=== PATIENT | male | born 1950 | race Caucasian/White ===

== ENCOUNTER 2018-01-03 18:57 | Observation (INO) | payer OTHER ==
[2018-01-03] MEDS ORDERED: ASPIRIN 81 MG CHEWABLE TABLETS PO ONE (19:11)
--- NOTE | 2018-01-03 19:11 | PDOC ---
Rapid Medical Evaluation Chief Complaint: Chest Pain Time Seen by Provider: 01/03/18 19:10 Medical Evaluation: Allergies Allergy/AdvReac Type Severity Reaction Status Date / Time No Known Allergies Allergy Verified 01/03/18 19:02 Vital Signs Temp Pulse Resp BP Pulse Ox 97.7 F 62 18 188/81 H 98 01/03/18 18:59 01/03/18 18:59 01/03/18 18:59 01/03/18 18:59 01/03/18 18:59 01/03/18 19:10 I have performed a brief in-person evaluation of this patient. The patient presents with a chief complaint of: left sided chest pain x1 week Pertinent physical exam findings: No TTP. Lungs CTAB. I have ordered the following: cardiac w/u The patient will proceed to the ED for further evaluation. Discharge Disposition - Diagnosis Chest pain - Referrals - Patient Instructions - Post Discharge Activity
[2018-01-03] MEDS ORDERED: ASPIRIN 81 MG CHEWABLE TABLETS ONE (19:31)
--- NOTE | 2018-01-03 19:44 | PDOC ---
History of Present Illness - General Chief Complaint: Chest Pain Stated Complaint: BLOOD PRESSURE PROBLEM Time Seen by Provider: 01/03/18 19:10 History Source: Patient - History of Present Illness Initial Comments: 01/03/18 19:47 67 year old male with epigastric pain, chest pain x 7 days with high blood pressure readings at home. patient reports slight dizziness and epigastric pain. when symptoms first started patient had 2 visits to OSH last week for chest pain. patient reports pain as a burning sensation took omeprazole at home. as per patient full GI workup in [place] as per patient results are negative, As per family patient had a diaphoretic episode x1 when the symptoms started, PMHX: Hypertension currently on betablocker and diovan HCTZ. 01/04/18 06:41 Presenting Symptoms: Abdominal Pain, Chest Pain, Dizziness Nitro Today/Relief: Yes: no nitro taken today Aspirin Received prior to arrival (Core Measure): Yes: no aspirin today Associated Symptoms: Yes: Abdominal pain Past History - Past Medical History Allergies/Adverse Reactions: Allergies Allergy/AdvReac Type Severity Reaction Status Date / Time No Known Allergies Allergy Verified 01/03/18 20:46 Home Medications: Ambulatory Orders Bisoprolol Fumarate [Zebeta (Nf) -] 10 mg PO DAILY 01/03/18 Valsartan/Hydrochlorothiazide [Valsartan-Hctz 320-12.5 mg Tab] 1 each PO DAILY 01/03/18 COPD: No HTN: Yes - Suicide/Smoking/Psychosocial Hx Smoking History: Never smoked Review of Systems - Review of Systems Able to Perform ROS?: Yes Is the patient limited Setswana proficient: No Constitutional: No: Symptoms Reported, See HPI, Chills, Diaphoresis, Fever, Loss of Appetite, Malaise, Night Sweats, Weakness, Weight Stable, Unintentional Wgt. Loss, Unexplained wgt Loss, Other Cardiac (ROS): Yes: Chest Pain, Lightheadedness. No: Symptoms Reported, See HPI , Edema, Irregular Heart Rate, Palpitations, Syncope, Chest Tightness, Other ABD/GI: Yes: Abdominal cramping. No: Symptoms Reported, See HPI, Abdominal Distended, Abd. Pain w/ defecation, Blood Streaked Bowels, Constipated, Diarrhea , Difficulty Swallowing, Nausea, Poor Appetite, Poor Fluid Intake, Rectal Bleeding, Vomiting, Indigestion, Tarry Stools, Other : No: Symptoms Reported, See HPI, Burning, Dysuria, Discharge, Frequency, Flank Pain, Hematuria, Incontinence, Pain, Urgency, Testicular Mass, Testicular Swelling, Lesions, Testicular Pain, Other Musculoskeletal: No: Symptoms Reported, See HPI, Back Pain, Gout, Joint Pain, Joint Swelling, Muscle Pain, Muscle Weakness, Neck Pain, Joint Stiffness, Other Integumentary: No: Symptoms Reported, See HPI, Bruising, Change in Color, Change in Hair/Nails, Dryness, Erythema, Flushing, Lesions, Lumps, Pallor, Pruritus, Rash, Sweating, Other *Physical Exam - Vital Signs Last Vital Signs Temp Pulse Resp BP Pulse Ox 98.5 F 52 L 16 109/66 99 01/04/18 01:00 01/04/18 06:25 01/04/18 06:25 01/04/18 06:25 01/04/18 06:25 - Physical Exam General Appearance: Yes: Appropriately Dressed Respiratory/Chest: positive: Lungs Clear, Normal Breath Sounds. negative: Chest Tender Cardiovascular: positive: Regular Rhythm, Regular Rate Gastrointestinal/Abdominal: positive: Normal Bowel Sounds, Tender (epigastric area tenderness), Soft Musculoskeletal: positive: Normal Inspection Extremity: positive: Normal Capillary Refill, Normal Inspection, Normal Range of Motion Integumentary: positive: Normal Color, Dry, Warm Neurologic: positive: Fully Oriented, Alert, Normal Mood/Affect Heart Score/ECG Review - History History: Slightly suspicious - Electrocardiogram EKG: Normal - Age Age: >/= 65 - Risk Factors Risk Factors Heart Score: Yes Hx Hypertension Based on the list above the patient has:: 1-2 risk factors - Troponin Troponin: </= normal limit - Score Heart Score - Total: 3 - ECG Intrepretation Rhythm: Regular Rhythm Comment:: 01/04/18 00:54 sinus rhythm with 1st degree AV block : 62 Bpm - P and TX Prolonged TX Interval: 1st Degree Block(>20mils) ED Treatment Course - LABORATORY CBC & Chemistry Diagram: 01/03/18 19:40 01/03/18 19:40 - ADDITIONAL ORDERS Additional order review: Laboratory Results 01/04/18 01/03/18 01/03/18 00:10 20:30 20:15 PT with INR INR Sodium Potassium Chloride Carbon Dioxide Anion Gap BUN Creatinine Creat Clearance w eGFR Random Glucose Calcium Magnesium Total Bilirubin AST ALT Alkaline Phosphatase Creatine Kinase 174 Creatine Kinase Index 1.8 CK-MB (CK-2) 3.2 Troponin I < 0.02 Total Protein Albumin Lipase Urine Color Straw Cancelled Urine Appearance Clear Cancelled Urine pH 7.0 Cancelled Ur Specific [place] 1.009 L Cancelled Urine Protein Negative Cancelled Urine Glucose (UA) Negative Cancelled Urine Ketones Negative Cancelled Urine Blood Negative Cancelled Urine Nitrite Negative Cancelled Urine Bilirubin Negative Cancelled Urine Urobilinogen Negative Cancelled Ur Leukocyte Esterase Negative Cancelled 01/03/18 01/03/18 19:40 19:40 PT with INR 11.70 INR 0.99 Sodium 139 Potassium 5.0 Chloride 100 Carbon Dioxide 28 Anion Gap 10 BUN 17 Creatinine 1.5 H Creat Clearance w eGFR 46.97 Random Glucose 99 Calcium 8.8 Magnesium 2.2 Total Bilirubin 0.3 AST 85 H ALT 147 H Alkaline Phosphatase 92 Creatine Kinase 193 Creatine Kinase Index 2.1 CK-MB (CK-2) 4.1 H Troponin I < 0.02 Total Protein 8.4 H Albumin 4.1 Lipase 308 Urine Color Urine Appearance Urine pH Ur Specific [place] Urine Protein Urine Glucose (UA) Urine Ketones Urine Blood Urine Nitrite Urine Bilirubin Urine Urobilinogen Ur Leukocyte Esterase 01/03/18 19:40 RBC 4.62 MCV 95.0 MCHC 35.6 RDW 13.3 MPV 9.0 Neutrophils % 36.0 L Lymphocytes % 47.3 H Monocytes % 9.2 Eosinophils % 7.0 H Basophils % 0.5 - RADIOLOGY Radiology Studies Ordered: Category Date Time Status ABDOMEN US -LIMITED [US] Stat Ultrasound 01/03/18 20:23 Completed - Medications Given in the ED: ED Medications Discontinued Medications Generic Name Dose Route Start Last Admin Trade Name Freq PRN Reason Stop Dose Admin Al Hydroxide/Mg Hydroxide 30 ml 01/03/18 19:45 01/03/18 20:10 Mylanta Oral Suspension - PO 01/03/18 19:46 30 ml ONCE ONE Administration Aspirin 162 mg 01/03/18 19:11 01/03/18 19:30 Asa - PO 01/03/18 19:12 162 mg ONCE ONE Administration Clonidine 0.2 mg 01/04/18 01:03 01/04/18 02:05 Catapres - PO 01/04/18 01:04 0.2 mg ONCE ONE Administration Hydralazine HCl 10 mg 01/04/18 03:41 01/04/18 04:58 Apresoline Injection - IVPUSH 01/04/18 03:42 Not Given ONCE ONE Metoprolol Tartrate 50 mg 01/03/18 23:30 01/04/18 00:01 Lopressor - PO 01/03/18 23:31 50 mg ONCE ONE Administration Morphine Sulfate 4 mg 01/03/18 21:38 01/03/18 21:25 Morphine Injection - IVPUSH 01/03/18 21:39 4 mg ONCE ONE Administration Medical Decision Making - Medical Decision Making 01/04/18 02:57 hypertension; chest pain P: labs EKG Chest xray 01/04/18 02:59 patient still hypertensive with chest pain. troponin x 2 negative. abdominal US negative. labs LFTS slightly elevated. will place for observation chest pain. patient signed out to Dr. Hutson/ Dr Mccracken 01/04/18 06:46 *DC/Admit/Observation/Transfer Diagnosis at time of Disposition: Epigastric abdominal pain, Hypertensive emergency Chest pain Qualifiers: Chest pain type: unspecified Qualified Code(s): R07.9 - Chest pain, unspecified Hypertension Qualifiers: Hypertension type: essential hypertension Qualified Code(s): I10 - Essential ( primary) hypertension - Discharge Dispostion Disposition: HOME Decision to Admit order: Yes - Referrals - Patient Instructions - Post Discharge Activity
[2018-01-03] MEDS ORDERED: MAG HYDROX/AL HYDROX/SIMETH 30 ML UNIT-DOSE CUP PO ONE (19:45)
[2018-01-03 19:47] LABS: BASO % 0.5 % (0-2.0); HEMATOCRIT 43.9 % (35.4-49); HEMOGLOBIN 15.6 GM/dL (11.7-16.9); LYMPH % 47.3 % (8-40); MCH 33.8 pg (25.7-33.7); MCHC 35.6 g/dl (32.0-35.9); MONO % 9.2 % (3.8-10.2); PLATELET COUNT 164 K/MM3 (134-434); RBC 4.62 M/mm3 (4.00-5.60); RDW 13.3 % (11.9-15.9); WHITE BLOOD COUNT 5.8 K/mm3 (4.0-10.0)
[2018-01-03] MEDS ORDERED: MAG HYDROX/AL HYDROX/SIMETH 30 ML UNIT-DOSE CUP ONE (19:48)
[2018-01-03 20:17] LABS: INR 0.99 (0.83-1.09); PROTHROMBIN TIME (PATIENT) 11.7 SEC (9.7-13.0)
[2018-01-03 20:32] LABS: ALBUMIN 4.1 g/dl (3.4-5.0); ALK PHOS 92 U/L (45-117); ANION GAP 10 MMOL/L (8-16); BILIRUBIN,TOTAL 0.3 mg/dL (0.2-1); BLOOD UREA NITROGEN 17 mg/dL (7-18); CALCIUM 8.8 mg/dL (8.5-10.1); CHLORIDE 100 mmol/L (98-107); CO2 28 mmol/L (21-32); CREATININE 1.5 mg/dL (0.55-1.3); GLUCOSE,RANDOM 99 mg/dL (74-106); MAGNESIUM 2.2 mg/dL (1.8-2.4); SGOT/AST 85 U/L (15-37); SGPT/ALT 147 U/L (13-61); SODIUM 139 mmol/L (136-145); TOT PROT 8.4 g/dl (6.4-8.2)
[2018-01-03 20:55] LABS: LIPASE 308 U/L (73-393)
[2018-01-03] MEDS ORDERED: morphine CARPU-JECT 4 MG/1 ML DISP.SYRIN IVPUSH ONE (21:38)
[2018-01-03] MEDS ORDERED: morphine SULFATE 4 MG/ML VIAL ONE (21:40)
[2018-01-03 22:13] LABS: URINE APPEARANCE CLEAR; URINE BILIRUBIN NEGATIVE (<2.0 mg/dL); URINE COLOR STRAW; URINE GLUCOSE (UA) NEGATIVE (NEGATIVE); URINE KETONE NEGATIVE (NEGATIVE); URINE LEUK ESTERASE NEGATIVE (NEGATIVE); URINE NITRITE NEGATIVE (NEGATIVE); URINE PROTEIN NEGATIVE (NEGATIVE); URINE UROBILINOGEN NEGATIVE mg/dL (0.2-1.0)
[2018-01-03] MEDS ORDERED: METOPROLOL TARTRATE 50 MG TABLET (FP) PO ONE (23:30)
[2018-01-04] MEDS ORDERED: METOPROLOL TARTRATE 50 MG TABLET (FP) ONE
[2018-01-04] MEDS ORDERED: cloNIDine HCL 0.1 MG TABLET PO ONE (01:03)
[2018-01-04] MEDS ORDERED: cloNIDine HCL 0.1 MG TABLET ONE (02:04)
--- NOTE | 2018-01-04 03:30 | PN ---
Teaching Attending Note Name of Resident: Adrián Hutson ATTENDING PHYSICIAN STATEMENT I saw and evaluated the patient. I reviewed the resident's note and discussed the case with the resident. I agree with the resident's findings and plan as documented. SUBJECTIVE: Patient is a 67 year old man with history of hypertension who presents with epigastric pain, chest pain x 7 days associated with high blood pressure readings at home. He reports slight dizziness and epigastric pain. when symptoms first started patient had 2 visits to OSH. Patient reports pain as a burning sensation and he took omeprazole at home. Says that full GI workup? in [place] was negative. OBJECTIVE: Alert Vital Signs Period Temp Pulse Resp BP Sys/Jennings Pulse Ox Last 24 Hr 97.7 F-98.9 F 56-65 16-20 151-215/81-96 98-100 HEENT: No Jaundice, eye redness or discharge, PERRLA, EOMI. Normocephalic, atraumatic. External ears are normal and hearing is grossly intact. No nasal discharge. Neck: Supple, nontender. No palpable adenopathy or thyromegaly. No JVD Chest: Good effort. Clear to auscultation and percussion. Heart: Regular. No S3, rub or murmur Abdomen: Not distended, soft, epigastric tenderness; no HSM. No rebound or guarding. Normoactive bowel sounds. Ext: Peripheral pulses intact. No leg edema. Skin: Warm and dry. No petechiae, rash or ecchymosis. Neuro: Alert. Oriented x3. CN 2-12 grossly intact. Sensation grossly intact in all four extremities and DTR are symmetric. Current Medications Generic Name Dose Route Start Last Admin Trade Name Freq PRN Reason Stop Dose Admin Amlodipine Besylate 5 mg 01/04/18 10:00 Norvasc - PO DAILY [facility] Heparin Sodium (Porcine) 5,000 unit 01/04/18 06:00 Heparin - SQ TID [facility] Hydrochlorothiazide 12.5 mg 01/04/18 10:00 Hctz - PO DAILY [facility] Losartan Potassium 100 mg 01/04/18 03:42 Cozaar - PO HS JEROD Home Medications Medication Instructions Recorded Bisoprolol Fumarate [Zebeta (Nf) -] 10 mg PO DAILY 01/03/18 Valsartan/Hydrochlorothiazide 1 each PO DAILY 01/03/18 [Valsartan-Hctz 320-12.5 mg Tab] Abnormal Lab Results 01/03/18 01/03/18 01/03/18 19:40 19:40 20:30 MCH 33.8 H Neutrophils % 36.0 L Lymphocytes % 47.3 H Eosinophils % 7.0 H Creatinine 1.5 H AST 85 H ALT 147 H CK-MB (CK-2) 4.1 H Total Protein 8.4 H Ur Specific [place] 1.009 L ASSESSMENT AND PLAN: 1. Chest pain and Hypertensive urgency - Chest pain is atypical and he has epigastric tenderness with elevated LFTs and dilated pancreatic duct. No ST-T wave changes of ischemia on EKG and initial troponin is negative. Got aspirin in the ER. BP remains high after 2 oral antihypertensive medications (Clonidine 0.2 mg and Lopressor 50 mg) in the ER. Will admit to telemetry to rule out ACS, get ECHO, fasting lipids and treat with IV hydralazine, HCTZ, Losartan, amlodipine and Protonix. Stress low salt diet and exercise and consult cardiology. Get hepatitis serology, trend LFTs and consult GI. 2. DVT prophylaxis - Heparin 5000u sq tid. 3. Advance directives - Full code
[2018-01-04] MEDS ORDERED: hydrALAZINE HCL 20 MG/ML VIAL IVPUSH ONE (03:41)
--- NOTE | 2018-01-04 04:01 | HP ---
CHIEF COMPLAINT: epigastric pain PCP: HISTORY OF PRESENT ILLNESS: Patient is a 67 y/o M w/ PMHx HTN from [facility] p/w burning left chest and epigastric pain x 7 days, more prominently epigastric. Went to [facility] last week and was discharged without definitive management. Has attempted self-treatment with omeprazole without relief. No other acute changes from USOH , ROS negative throughout. Reports full GI w/u in [place] ~1 month ago that was negative. Treated in ED with ASA, clonidine, Lopressor, morphine, Mylanta. Blood pressure persistently high 180s/90s. Elevated creatinine to 1.5 w/ no known baseline, elevated LFTs. CXR and Abd US negative. EKG has NSR w/ 1st degree AV block. Trop neg x 2, CKMB mildly elevated and downtrending. ER course was notable for: (1) HTN urgency/emergency (2) benign EKG, CXR, abd US (3) trop neg x 2 Recent Travel: [facility] PAST MEDICAL HISTORY: As per HPI PAST SURGICAL HISTORY: As per HPI Social History: Smoking: Alcohol: Drugs: Family History: Allergies No Known Allergies Allergy (Verified 01/03/18 20:46) HOME MEDICATIONS: Home Medications Medication Instructions Recorded Bisoprolol Fumarate [Zebeta (Nf) -] 10 mg PO DAILY 01/03/18 Valsartan/Hydrochlorothiazide 1 each PO DAILY 01/03/18 [Valsartan-Hctz 320-12.5 mg Tab] REVIEW OF SYSTEMS As per HPI PHYSICAL EXAMINATION Vital Signs - 24 hr 01/03/18 01/03/18 01/03/18 18:59 19:35 21:04 Temperature 97.7 F 98.0 F Pulse Rate 62 Pulse Rate [ 65 56 L Left Radial] Respiratory 18 16 17 Rate Blood Pressure 188/81 H Blood Pressure 151/86 171/94 H [Left Arm] Blood Pressure [Right Arm] O2 Sat by Pulse 98 100 100 Oximetry (%) 01/03/18 01/03/18 01/03/18 21:20 21:30 21:46 Temperature Pulse Rate Pulse Rate [ 58 L 65 64 Left Radial] Respiratory 16 17 20 Rate Blood Pressure Blood Pressure 193/88 H 215/94 H 196/96 H [Left Arm] Blood Pressure [Right Arm] O2 Sat by Pulse 100 100 100 Oximetry (%) 01/03/18 01/04/18 01/04/18 23:50 01:00 02:00 Temperature 98.9 F 98.5 F Pulse Rate Pulse Rate [ 61 61 56 L Left Radial] Respiratory 16 16 16 Rate Blood Pressure Blood Pressure [Left Arm] Blood Pressure 188/96 H 187/91 H 187/94 H [Right Arm] O2 Sat by Pulse 98 99 98 Oximetry (%) 01/04/18 02:52 Temperature Pulse Rate Pulse Rate [ 56 L Left Radial] Respiratory 16 Rate Blood Pressure Blood Pressure [Left Arm] Blood Pressure 181/93 H [Right Arm] O2 Sat by Pulse 99 Oximetry (%) GENERAL: A&Ox3, NAD HEAD: NC/AT EYES: PERRLA, EOMI EARS, NOSE, THROAT: Ears normal, nares patent, oropharynx clear without exudates. Moist mucous membranes. NECK: Normal range of motion, supple without lymphadenopathy, JVD, or masses. LUNGS: CTA b/l HEART: RRR no m/r/g CHEST: no TTP ABDOMEN: +bs, soft, non-distended, mild TTP in epigastrum UPPER EXTREMITIES: 2+ pulses, warm, well-perfused. No cyanosis. No clubbing. No peripheral edema. LOWER EXTREMITIES: 2+ pulses, warm, well-perfused. No calf tenderness. No peripheral edema. 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 Good eye contact. Appropriate mood and affect. SKIN: Warm, dry, normal turgor, no rashes or lesions noted, normal capillary refill. Laboratory Results - last 24 hr 01/03/18 01/03/18 01/03/18 19:40 19:40 19:40 WBC 5.8 RBC 4.62 Hgb 15.6 Hct 43.9 MCV 95.0 MCH 33.8 H MCHC 35.6 RDW 13.3 Plt Count 164 MPV 9.0 Absolute Neuts (auto) 2.1 Neutrophils % 36.0 L Lymphocytes % 47.3 H Monocytes % 9.2 Eosinophils % 7.0 H Basophils % 0.5 Nucleated RBC % 0 PT with INR 11.70 INR 0.99 Sodium 139 Potassium 5.0 Chloride 100 Carbon Dioxide 28 Anion Gap 10 BUN 17 Creatinine 1.5 H Creat Clearance w eGFR 46.97 Random Glucose 99 Calcium 8.8 Magnesium 2.2 Total Bilirubin 0.3 AST 85 H ALT 147 H Alkaline Phosphatase 92 Creatine Kinase 193 Creatine Kinase Index 2.1 CK-MB (CK-2) 4.1 H Troponin I < 0.02 Total Protein 8.4 H Albumin 4.1 Lipase 308 Urine Color Urine Appearance Urine pH Ur Specific [place] Urine Protein Urine Glucose (UA) Urine Ketones Urine Blood Urine Nitrite Urine Bilirubin Urine Urobilinogen Ur Leukocyte Esterase 01/03/18 01/03/18 01/04/18 20:15 20:30 00:10 WBC RBC Hgb Hct MCV MCH MCHC RDW Plt Count MPV Absolute Neuts (auto) Neutrophils % Lymphocytes % Monocytes % Eosinophils % Basophils % Nucleated RBC % PT with INR INR Sodium Potassium Chloride Carbon Dioxide Anion Gap BUN Creatinine Creat Clearance w eGFR Random Glucose Calcium Magnesium Total Bilirubin AST ALT Alkaline Phosphatase Creatine Kinase 174 Creatine Kinase Index 1.8 CK-MB (CK-2) 3.2 Troponin I < 0.02 Total Protein Albumin Lipase Urine Color Cancelled Straw Urine Appearance Cancelled Clear Urine pH Cancelled 7.0 Ur Specific [place] Cancelled 1.009 L Urine Protein Cancelled Negative Urine Glucose (UA) Cancelled Negative Urine Ketones Cancelled Negative Urine Blood Cancelled Negative Urine Nitrite Cancelled Negative Urine Bilirubin Cancelled Negative Urine Urobilinogen Cancelled Negative Ur Leukocyte Esterase Cancelled Negative ASSESSMENT/PLAN: 67 y/o M w/ PMHx HTN p/w 1 week h/o epigastric>chest pain, hypertensive urgency #HTN -elevated Cr may represent end organ damange (therefore HTN emergency rather than urgency) -home meds are DR versions of BB, ARB, thiazide -pushed 10mg hydralazine and gave 100mg Losartan PO stat -in AM, HCTZ 12.5 and Norvasc 5 -thereafter HCTZ/Norvasc in AM, Losartan in PM -avoid further AV maricruz blockade as borderline bradycardic (HR 56) -re-assess renal status after BP controlled #epigastric pain -3rd troponin in AM -repeat EKG in AM -GI consulted #LFT abnormality -abd US benign -GI consulted #FEN -no IVF -monitor and replete lytes -low Na diet #PPx -DVT: heparin subq -GI: not indicated #code -full #dispo -admit to tele-obs Visit type - Emergency Visit Emergency Visit: Yes Care time: The patient presented to the Emergency Department on the above date and was hospitalized for further evaluation of their emergent condition. - New Patient This patient is new to me today: Yes Date on this admission: 01/04/18 - Critical Care Critical Care patient: No
[2018-01-04] MEDS ORDERED: hydrALAZINE HCL 20 MG/ML VIAL ONE (04:41)
[2018-01-04] MEDS: LOSARTAN POTASSIUM 50 MG TABLET (FP) PO SCH ×2 (04:58→21:40)
[2018-01-04] MEDS ORDERED: HEPARIN NA (PORCINE) 5,000 UNITS/ML 1ML VIAL ONE (06:20)
[2018-01-04] MEDS: HEPARIN NA (PORCINE) 5,000 UNITS/ML 1ML VIAL SQ SCH ×3 (06:25→21:40)
[2018-01-04 06:55] LABS: HEMATOCRIT 42.2 % (35.4-49); HEMOGLOBIN 15.5 GM/dL (11.7-16.9); MCH 34.5 pg (25.7-33.7); MCHC 36.7 g/dl (32.0-35.9); MEAN CELL VOLUME 94.1 fl (80-96); MEAN PLT VOLUME 9.2 fl (7.5-11.1); PLATELET COUNT 147 K/MM3 (134-434); RBC 4.48 M/mm3 (4.00-5.60); RDW 13.5 % (11.9-15.9); WHITE BLOOD COUNT 6.4 K/mm3 (4.0-10.0)
[2018-01-04 07:32] LABS: ANION GAP 9 MMOL/L (8-16); BLOOD UREA NITROGEN 16 mg/dL (7-18); CALCIUM 8.6 mg/dL (8.5-10.1); CHLORIDE 101 mmol/L (98-107); CO2 28 mmol/L (21-32); CREATININE 1.3 mg/dL (0.55-1.3); GLUCOSE,RANDOM 109 mg/dL (74-106); MAGNESIUM 2.2 mg/dL (1.8-2.4); PHOSPHOROUS 2.7 mg/dL (2.5-4.9); POTASSIUM 4.1 mmol/L (3.5-5.1); SODIUM 138 mmol/L (136-145)
[2018-01-04 07:39] LABS: INR 1.04 (0.83-1.09); PROTHROMBIN TIME (PATIENT) 12.3 SEC (9.7-13.0)
[2018-01-04 07:42] LABS: ACTIVATED PTT 30.7 SECONDS (25.2-36.5)
--- NOTE | 2018-01-04 09:01 | PN ---
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 reprts having burning epigastric pain last evening , that was intermittent and lasted 10 min at a time. he reprots it is because of his high blood pressure. he denies eating dinner yesterday. he reports similar pain in [facility], but not clear on details. he denies any ABd pain, SOB , or N/V. he denies SOB. has no diarrhea. he reports taking his meds. Objective: Vital Signs: Last Vital Signs Temp Pulse Resp BP Pulse Ox 98.5 F 50 L 16 119/74 100 01/04/18 01:00 01/04/18 07:56 01/04/18 07:56 01/04/18 07:56 01/04/18 07:56 Laboratory Results - last 24 hr 01/03/18 01/03/18 01/03/18 19:40 19:40 19:40 WBC 5.8 RBC 4.62 Hgb 15.6 Hct 43.9 MCV 95.0 MCH 33.8 H MCHC 35.6 RDW 13.3 Plt Count 164 MPV 9.0 Absolute Neuts (auto) 2.1 Neutrophils % 36.0 L Lymphocytes % 47.3 H Monocytes % 9.2 Eosinophils % 7.0 H Basophils % 0.5 Nucleated RBC % 0 PT with INR 11.70 INR 0.99 PTT (Actin FS) Sodium 139 Potassium 5.0 Chloride 100 Carbon Dioxide 28 Anion Gap 10 BUN 17 Creatinine 1.5 H Creat Clearance w eGFR 46.97 Random Glucose 99 Calcium 8.8 Phosphorus Magnesium 2.2 Total Bilirubin 0.3 Direct Bilirubin AST 85 H ALT 147 H Alkaline Phosphatase 92 Creatine Kinase 193 Creatine Kinase Index 2.1 CK-MB (CK-2) 4.1 H Troponin I < 0.02 Total Protein 8.4 H Albumin 4.1 Lipase 308 Urine Color Urine Appearance Urine pH Ur Specific [place] Urine Protein Urine Glucose (UA) Urine Ketones Urine Blood Urine Nitrite Urine Bilirubin Urine Urobilinogen Ur Leukocyte Esterase 01/03/18 01/03/18 01/04/18 20:15 20:30 00:10 WBC RBC Hgb Hct MCV MCH MCHC RDW Plt Count MPV Absolute Neuts (auto) Neutrophils % Lymphocytes % Monocytes % Eosinophils % Basophils % Nucleated RBC % PT with INR INR PTT (Actin FS) Sodium Potassium Chloride Carbon Dioxide Anion Gap BUN Creatinine Creat Clearance w eGFR Random Glucose Calcium Phosphorus Magnesium Total Bilirubin Direct Bilirubin AST ALT Alkaline Phosphatase Creatine Kinase 174 Creatine Kinase Index 1.8 CK-MB (CK-2) 3.2 Troponin I < 0.02 Total Protein Albumin Lipase Urine Color Cancelled Straw Urine Appearance Cancelled Clear Urine pH Cancelled 7.0 Ur Specific [place] Cancelled 1.009 L Urine Protein Cancelled Negative Urine Glucose (UA) Cancelled Negative Urine Ketones Cancelled Negative Urine Blood Cancelled Negative Urine Nitrite Cancelled Negative Urine Bilirubin Cancelled Negative Urine Urobilinogen Cancelled Negative Ur Leukocyte Esterase Cancelled Negative 01/04/18 01/04/18 01/04/18 06:00 06:00 06:00 WBC 6.4 RBC 4.48 Hgb 15.5 Hct 42.2 MCV 94.1 MCH 34.5 H MCHC 36.7 H RDW 13.5 Plt Count 147 MPV 9.2 Absolute Neuts (auto) Neutrophils % Lymphocytes % Monocytes % Eosinophils % Basophils % Nucleated RBC % PT with INR 12.30 INR 1.04 PTT (Actin FS) 30.7 Sodium Potassium Chloride Carbon Dioxide Anion Gap BUN Creatinine Creat Clearance w eGFR Random Glucose Calcium Phosphorus Magnesium Total Bilirubin Direct Bilirubin AST ALT Alkaline Phosphatase Creatine Kinase Creatine Kinase Index CK-MB (CK-2) Troponin I < 0.02 Total Protein Albumin Lipase Urine Color Urine Appearance Urine pH Ur Specific [place] Urine Protein Urine Glucose (UA) Urine Ketones Urine Blood Urine Nitrite Urine Bilirubin Urine Urobilinogen Ur Leukocyte Esterase 01/04/18 01/04/18 06:00 06:00 WBC RBC Hgb Hct MCV MCH MCHC RDW Plt Count MPV Absolute Neuts (auto) Neutrophils % Lymphocytes % Monocytes % Eosinophils % Basophils % Nucleated RBC % PT with INR INR PTT (Actin FS) Sodium 138 Potassium 4.1 Chloride 101 Carbon Dioxide 28 Anion Gap 9 BUN 16 Creatinine 1.3 Creat Clearance w eGFR 55.40 Random Glucose 109 H Calcium 8.6 Phosphorus 2.7 Magnesium 2.2 Total Bilirubin Cancelled Direct Bilirubin Cancelled AST Cancelled ALT Cancelled Alkaline Phosphatase Cancelled Creatine Kinase Creatine Kinase Index CK-MB (CK-2) Troponin I Total Protein Cancelled Albumin Cancelled Lipase Urine Color Urine Appearance Urine pH Ur Specific [place] Urine Protein Urine Glucose (UA) Urine Ketones Urine Blood Urine Nitrite Urine Bilirubin Urine Urobilinogen Ur Leukocyte Esterase Physical Exam: NAD. MMM, no jaundice CV: RRR, no MRG Lungs: CTAB. Abd: soft, NT, ND , NL BS . Ext: no edema or erythema. Assessment/Plan: 67 y/o man with h/o HTN who presented with epigastric pain . he wwas diagnosed with HTN emergency 1- HTN emergency; BP improved. - cont current regimen. pt does not remember his home meds but his sister brought the list. -EKG with sinus rhythm, no ST or TW changes. 1st degree AV block. - echo 2- Epigastric discomfort, could be cardiac in setting of elevated BP, or from GI tract . No ischemic EKG changes - tele 3- Abd pain : lipase nL, no abd tenderness. etiology of LFTS abn needs to be determined. ? liver congestion . no stones or dilation in CBD or intrahepatic duct. liver looks nL. repeat LFTS pending unsure of significance of prominant pancreatic duct. will determine next step after reviewing LFTS from this am 4- CHEN : likely in setting of HTN emergency. resolved . monitor DVT px Visit type - Emergency Visit Emergency Visit: Yes ED Registration Date: 01/04/18 Care time: The patient presented to the Emergency Department on the above date and was hospitalized for further evaluation of their emergent condition. - New Patient This patient is new to me today: Yes Date on this admission: 01/04/18 - Critical Care Critical Care patient: No
[2018-01-04 09:24] LABS: ALBUMIN 3.6 g/dl (3.4-5.0); ALK PHOS 82 U/L (45-117); BILIRUBIN,DIRECT 0.2 mg/dL (0.0-0.2); BILIRUBIN,TOTAL 0.5 mg/dL (0.2-1); SGOT/AST 75 U/L (15-37); SGPT/ALT 135 U/L (13-61); TOT PROT 7.6 g/dl (6.4-8.2)
--- NOTE | 2018-01-04 13:23 | CON.GI ---
Consult Consult Specialty:: GI Referred by:: Hospitalist Service Reason for Consultation:: epigastric burning - History of Present Illness Chief Complaint: Epigastric burning: [id number] aided with interpretation as the patient is German speaking History of Present Illness: 67M admitted for evaluation of intermittent epigastric and chest pain. has been occurring over the last cocouple of weeks. Was seen at the [facility] ER. In ER at [facility] noted to have markedly elevated BP. Also noted to be bradycardic> He gets intermittent headaches and denies currently. He states that when his blood pressure is nigh he has had episodes of upper abdominal burning as well. He had an EGD/[place] in the [place] 4-6 months ago that showed gastritis, a hiatal hernia and colon polyps. He denies pain currently. Abd US shows prominent main pancreatic duduct and was otherwise normal. He denies a family history of colorectal cancr or other GI malignancy. 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year[place] 2017 History of Recent Travel: Yes (was in [place] 1 month prior) Home Medications - Allergies Allergies/Adverse Reactions: Allergies Allergy/AdvReac Type Severity Reaction Status Date / Time No Known Allergies Allergy Verified 01/03/18 20:46 - Home Medications Home Medications: Ambulatory Orders Bisoprolol Fumarate [Zebeta (Nf) -] 10 mg PO DAILY 01/03/18 Valsartan/Hydrochlorothiazide [Valsartan-Hctz 320-12.5 mg Tab] 1 each PO DAILY 01/03/18 Family Disease History - Family Disease History Family Disease History: Other: Father (: 96: natural causes), Mother (: 94: natural causes), Brother (2, 1 (accident)), Sister (2, 1 ( cerebral palsy)), Son (1, healthy), Daughter (2, healthy) Other Family History: No family history of colorectal cancer or other GI malignancy Review of Systems - Review of Systems Constitutional: denies: Fever, Unintentional Wgt. Loss Cardiovascular: reports: Chest Pain Respiratory: denies: SOB Neurological: reports: Headache Physical Exam-GI Vital Signs: Vital Signs Temperature 01/04/18 13:30 Pulse Rate 48 L 01/04/18 13:30 Respiratory Rate 16 01/04/18 13:30 Blood Pressure 140/81 01/04/18 13:30 O2 Sat by Pulse Oximetry (%) 100% RA 01/04/18 13:30 Constitutional: Yes: Calm Eyes: No: Sclera Icterus Cardiovascular: Yes: Bradycardia (regular rhythm) Respiratory: Yes: CTA Bilaterally Gastrointestinal Inspection: No: Distention, Scars ...Auscultate: Yes: Normoactive Bowel Sounds ...Palpate: No: Hepatomegaly, Splenomegaly, Tenderness ...Percussion: No: Tympanitic Edema: No (No LE edema) Neurological: Yes: Alert Labs: CBC, BMP 01/04/18 06:00 01/04/18 06:00 INR, PTT INR 1.04 (0.83-1.09) 01/04/18 06:00 Hepatic Panel Total Bilirubin 0.5 mg/dL (0.2-1) 01/04/18 06:00 Direct Bilirubin 0.2 mg/dL (0.0-0.2) 01/04/18 06:00 AST 75 U/L (15-37) H 01/04/18 06:00 ALT 135 U/L (13-61) H 01/04/18 06:00 Alkaline Phosphatase 82 U/L (45-117) 01/04/18 06:00 Albumin 3.6 g/dl (3.4-5.0) 01/04/18 06:00 Problem List - Problems (1) Epigastric abdominal pain Assessment/Plan: Intermittent and coincides with his elevated blood pressure. ? if dyspeptic anginal equivalent Toleraitng PO. Consider cardiology evaluation. ? need for imaging of thoracic and abdominal vasculature Do not think the finding of dilated main pancreatic duct is related to this complaint. Can obtain further imaging of abdomen with CT scan and can have MRI/ MRCP as outpatient Code(s): R10.13 - EPIGASTRIC PAIN
[2018-01-04 17:40] VITALS: BMI 28.6
[2018-01-04] MEDS: amLODIPine BESYLATE 5 MG TABLET (FP) PO SCH (18:16)
[2018-01-04] MEDS: HYDROCHLOROTHIAZIDE 12.5 MG CAPSULE (FP) PO SCH (18:16)
[2018-01-04] MEDS ORDERED: ACETAMINOPHEN 325 MG TABLET (FP) PO ONE (20:57)
[2018-01-05] MEDS: HEPARIN NA (PORCINE) 5,000 UNITS/ML 1ML VIAL SQ SCH ×3 (06:24→21:52)
--- NOTE | 2018-01-05 07:28 | PN ---
Teaching Attending Note Name of Resident: Neri Ryan ATTENDING PHYSICIAN STATEMENT I saw and evaluated the patient. I reviewed the resident's note and discussed the case with the resident. I agree with the resident's findings and plan as documented. SUBJECTIVE: Patient is comfortable with no acute distress. No nausea or vomiting, c/o having mild headache. OBJECTIVE: Vital Signs Temperature 97.8 F 01/05/18 06:00 Pulse Rate 52 L 01/05/18 06:00 Respiratory Rate 18 01/05/18 06:00 Blood Pressure 123/66 01/05/18 06:00 O2 Sat by Pulse Oximetry (%) 98 01/05/18 05:00 GENERAL: A&Ox3, NAD HEAD: NC/AT, EYES: PERRLA, EOMI EARS, NOSE, THROAT: Ears normal, oropharynx clear without exudates. MMM. NECK: Normal range of motion, supple without lymphadenopathy, JVD, or masses. LUNGS: CTA b/l, No W/R/R HEART: RRR, S1S2 positive, ABDOMEN: positive for BS, soft, ND, NT. EXTREMITIES: 2+ pulses, warm, well-perfused. No calf tenderness. No peripheral edema. 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 Good eye contact. Appropriate mood and affect. SKIN: Warm, dry, normal turgor, no rashes or lesions noted, normal capillary refill. CBCD WBC 6.4 K/mm3 (4.0-10.0) 01/04/18 06:00 RBC 4.48 M/mm3 (4.00-5.60) 01/04/18 06:00 Hgb 15.5 GM/dL (11.7-16.9) 01/04/18 06:00 Hct 42.2 % (35.4-49) 01/04/18 06:00 MCV 94.1 fl (80-96) 01/04/18 06:00 MCHC 36.7 g/dl (32.0-35.9) H 01/04/18 06:00 RDW 13.5 % (11.9-15.9) 01/04/18 06:00 Plt Count 147 K/MM3 (134-434) 01/04/18 06:00 MPV 9.2 fl (7.5-11.1) 01/04/18 06:00 CMP Sodium 138 mmol/L (136-145) 01/04/18 06:00 Potassium 4.1 mmol/L (3.5-5.1) 01/04/18 06:00 Chloride 101 mmol/L (98-107) 01/04/18 06:00 Carbon Dioxide 28 mmol/L (21-32) 01/04/18 06:00 Anion Gap 9 MMOL/L (8-16) 01/04/18 06:00 BUN 16 mg/dL (7-18) 01/04/18 06:00 Creatinine 1.3 mg/dL (0.55-1.3) 01/04/18 06:00 Creat Clearance w eGFR 55.40 (>60) 01/04/18 06:00 Random Glucose 109 mg/dL (74-106) H 01/04/18 06:00 Calcium 8.6 mg/dL (8.5-10.1) 01/04/18 06:00 Total Bilirubin 0.5 mg/dL (0.2-1) 01/04/18 06:00 AST 75 U/L (15-37) H 01/04/18 06:00 ALT 135 U/L (13-61) H 01/04/18 06:00 Alkaline Phosphatase 82 U/L (45-117) 01/04/18 06:00 Total Protein 7.6 g/dl (6.4-8.2) 01/04/18 06:00 Albumin 3.6 g/dl (3.4-5.0) 01/04/18 06:00 CARDIAC ENZYMES Creatine Kinase 174 IU/L (26-308) 01/04/18 00:10 Troponin I < 0.02 ng/ml (0.00-0.05) 01/04/18 06:00 Current Medications Generic Name Dose Route Start Last Admin Trade Name Freq PRN Reason Stop Dose Admin Amlodipine Besylate 5 mg 01/04/18 10:00 01/04/18 18:16 Norvasc - PO Not Given DAILY [facility] Heparin Sodium (Porcine) 5,000 unit 01/04/18 06:00 01/05/18 06:24 Heparin - SQ 5,000 unit TID [facility] Administration Hydrochlorothiazide 12.5 mg 01/04/18 10:00 01/04/18 18:16 Hctz - PO Not Given DAILY [facility] Losartan Potassium 100 mg 01/04/18 03:42 01/04/18 21:40 Cozaar - PO 100 mg HS JEROD Administration Home Medications Medication Instructions Recorded Bisoprolol Fumarate [Zebeta (Nf) -] 10 mg PO DAILY 01/03/18 Valsartan/Hydrochlorothiazide 1 each PO DAILY 01/03/18 [Valsartan-Hctz 320-12.5 mg Tab] EKG with sinus rhythm, no ST or TW changes. 1st degree AV block. ASSESSMENT AND PLAN: Patient is a 67 y/o man with hx of HTN who presented with epigastric pain .He was diagnosed with HTN emergency. # HTN emergency; BP improved. continue current regimen. Continue Losartan echo # Epigastric discomfort, could be cardiac in setting of elevated BP, or from GI tract . No ischemic EKG changes. # Abdominal pain :improved. lipase nL, no abdominal tenderness. with elevated LFTs , will monitor, etiology unclear. no stones or dilation in CBD or intrahepatic duct. liver looks nL, unsure of significance prominence of pancreatic duct. MRI of abdomen is pending. # CHEN : likely in setting of HTN emergency. resolved, monitor. DVT: Heparin
[2018-01-05 09:45] LABS: ALBUMIN 3.6 g/dl (3.4-5.0); ALK PHOS 84 U/L (45-117); ANION GAP 8 MMOL/L (8-16); BILIRUBIN,TOTAL 0.6 mg/dL (0.2-1); BLOOD UREA NITROGEN 19 mg/dL (7-18); CALCIUM 8.6 mg/dL (8.5-10.1); CHLORIDE 99 mmol/L (98-107); CO2 29 mmol/L (21-32); CREATININE 1.5 mg/dL (0.55-1.3); GLUCOSE,RANDOM 159 mg/dL (74-106); MAGNESIUM 2.1 mg/dL (1.8-2.4); POTASSIUM 3.8 mmol/L (3.5-5.1); SGOT/AST 73 U/L (15-37); SGPT/ALT 124 U/L (13-61); SODIUM 136 mmol/L (136-145); TOT PROT 7.7 g/dl (6.4-8.2)
--- NOTE | 2018-01-05 10:06 | EKG ---
Test Reason : Blood Pressure : / mmHG Vent. Rate : 048 BPM Atrial Rate : 048 BPM P-R Int : 316 ms QRS Dur : 080 ms QT Int : 468 ms P-R-T Axes : 050 -24 002 degrees QTc Int : 418 ms SINUS BRADYCARDIA WITH 1ST DEGREE A-V BLOCK Confirmed by AIXA PRAKASH MD ([id number]) on 01/05/2018 10:06:04 AM Referred By: Erik LAZCANO Confirmed By:AIXA PRAKASH MD
--- NOTE | 2018-01-05 10:13 | EKG ---
Test Reason : Blood Pressure : / mmHG Vent. Rate : 062 BPM Atrial Rate : 062 BPM P-R Int : 302 ms QRS Dur : 084 ms QT Int : 418 ms P-R-T Axes : 064 -22 030 degrees QTc Int : 424 ms SINUS RHYTHM WITH 1ST DEGREE A-V BLOCK SEPTAL INFARCT , AGE UNDETERMINED ABNORMAL ECG NO PREVIOUS ECGS AVAILABLE Confirmed by AIXA PRAKASH MD ([id number]) on 01/05/2018 10:12:41 AM Referred By: Confirmed By:AIXA PRAKASH MD
[2018-01-05] MEDS ORDERED: ACETAMINOPHEN 325 MG TABLET (FP) PO ONE (10:48)
[2018-01-05] MEDS: HYDROCHLOROTHIAZIDE 12.5 MG CAPSULE (FP) PO SCH (11:17)
[2018-01-05] MEDS: amLODIPine BESYLATE 5 MG TABLET (FP) PO SCH (11:17)
--- NOTE | 2018-01-05 13:29 | PN ---
Physical Exam: SUBJECTIVE: Patient seen and examined. No acute events overnight. Pt. endorses having headaches everyday including right now. Pt. denies fever, chills, nausea , vomiting, constipation or diarrhea. OBJECTIVE: Vital Signs Period Temp Pulse Resp BP Sys/Jennings Pulse Ox Last 24 Hr 97.8 F-98.2 F 50-60 14-18 122-141/66-78 98-100 GENERAL: The patient is awake, alert, and in no acute distress. HEAD: Normal with no signs of trauma. EYES: PERRL, sclera anicteric, conjunctiva clear. No ptosis. ENT: Ears normal, nares patent, oropharynx clear without exudates, moist mucous membranes. LUNGS: Breath sounds equal, clear to auscultation bilaterally, no wheezes, no crackles, no accessory muscle use. HEART: Regular rate and rhythm, S1, S2 without murmur, rub or gallop. ABDOMEN: Soft, nontender, nondistended, normoactive bowel sounds, no guarding, no rebound, tympanic to percussion. EXTREMITIES: symmetric 2+ dorsal pedal and radial pulses, no calf tenderness, warm, well-perfused, no edema. NEUROLOGICAL: Normal speech, gait not observed. PSYCH: Normal mood, normal affect. SKIN: Warm, dry, normal turgor, no rashes or lesions noted Laboratory Results - last 24 hr 01/05/18 08:35 Sodium 136 Potassium 3.8 Chloride 99 Carbon Dioxide 29 Anion Gap 8 BUN 19 H Creatinine 1.5 H Creat Clearance w eGFR 46.97 Random Glucose 159 H Calcium 8.6 Phosphorus 3.0 Magnesium 2.1 Total Bilirubin 0.6 AST 73 H ALT 124 H Alkaline Phosphatase 84 Total Protein 7.7 Albumin 3.6 Active Medications Current Medications Amlodipine Besylate (Norvasc -) 5 mg PO DAILY [facility] Last Admin: 01/05/18 11:17 Dose: 5 mg Heparin Sodium (Porcine) (Heparin -) 5,000 unit SQ TID [facility] Last Admin: 01/05/18 06:24 Dose: 5,000 unit Hydrochlorothiazide (Hctz -) 12.5 mg PO DAILY [facility] Last Admin: 01/05/18 11:17 Dose: 12.5 mg Losartan Potassium (Cozaar -) 100 mg PO HS [facility] Last Admin: 01/04/18 21:40 Dose: 100 mg Home Medications Medication Instructions Recorded Bisoprolol Fumarate [Zebeta (Nf) -] 10 mg PO DAILY 01/03/18 Valsartan/Hydrochlorothiazide 1 each PO DAILY 01/03/18 [Valsartan-Hctz 320-12.5 mg Tab] ASSESSMENT/PLAN: 67 y/o M w/ PMHx HTN p/w 1 week h/o epigastric>chest pain, hypertensive urgency -Epigastric Pain f/u Abdominal MRI/MRCP, Pt. has CHEN therefore not a good candidate for CT Abdomen w/ contrast. Abdominal US: showed prominent pancreatic duct, no acute pathology, no obstructing stones visualized. GI (Dr. Null) consult appreciated: 4-6 months ago had colonoscopy/EGD and was found to have hiatal hernia, gastritis and colonic polyps. -Hypertension-stable Hypertensive urgency vs. emergency on admission (180s/90s w/ Cr. 1.5) as Cr. was elevated. Baseline Cr. unknown. Pt. has chronic headache. given 10mg hydralazine and gave 100mg Losartan PO stat in ED C/w Losartan (PM), HCTZ and Norvasc(AM) avoid further AV maricruz blockade as borderline bradycardic Troponins Negative x 3 EKG showed sinus rhythm with 1st degree AV block, Rpt. EKG showed bradycardia ( 48) with 1st degree AV block. -Transaminitis- resolving LFTs trending down, likely 2/2 passed stone or sludge f/u Hepatitis panel as Pt. recently traveled(immigrated?) from [facility] [place] f/u MRI/MRCP Abdominal US noted as above -Headache likely tension headache given band distribution on head. will give ICE compress to head avoid Acetaminophen given transaminitis -F/E/N no IVF monitor and replete electrolytes NPO for MRI/ MRCP -PPx DVT: heparin subq GI: not indicated -Code Full Visit type - Emergency Visit Emergency Visit: Yes ED Registration Date: 01/04/18 Care time: The patient presented to the Emergency Department on the above date and was hospitalized for further evaluation of their emergent condition. - New Patient This patient is new to me today: Yes Date on this admission: 01/05/18 - Critical Care Critical Care patient: No - Discharge Referral Referred to [facility] Med [facility] No
--- NOTE | 2018-01-05 13:44 | PN ---
GI Progress Note Subjective: No focal GI complaints - Objective Vital Signs: Vital Signs Temperature 97.8 F 01/05/18 06:00 Pulse Rate 52 L 01/05/18 06:00 Respiratory Rate 18 01/05/18 06:00 Blood Pressure 123/66 01/05/18 06:00 O2 Sat by Pulse Oximetry (%) 98 01/05/18 05:00 Constitutional: Calm Eyes: No: Sclera Icterus Cardiovascular: Yes: Regular Rate and Rhythm Respiratory: Yes: CTA Bilaterally Gastrointestinal Inspection: No: Distention ...Auscultate: Yes: Normoactive Bowel Sounds ...Palpate: No: Hepatomegaly, Splenomegaly, Tenderness Edema: No (No LE edema) Neurological: Yes: Alert Labs: CBC, BMP 01/04/18 06:00 01/05/18 08:35 INR, PTT INR 1.04 (0.83-1.09) 01/04/18 06:00 Hepatic Panel Total Bilirubin 0.6 mg/dL (0.2-1) 01/05/18 08:35 Direct Bilirubin 0.2 mg/dL (0.0-0.2) 01/04/18 06:00 AST 73 U/L (15-37) H 01/05/18 08:35 ALT 124 U/L (13-61) H 01/05/18 08:35 Alkaline Phosphatase 84 U/L (45-117) 01/05/18 08:35 Albumin 3.6 g/dl (3.4-5.0) 01/05/18 08:35 Problem List - Problems (1) Epigastric abdominal pain Assessment/Plan: No pain BUN/Cr have risen. Agree with holding off on contrast CT scan at this time given renal insufficiency. Can obtain non contrast MRI of the abdomen with MRCP. Ordered hepatitis A/B/C serologies for eval of mild transaminitis Code(s): R10.13 - EPIGASTRIC PAIN
[2018-01-05] MEDS: LOSARTAN POTASSIUM 50 MG TABLET (FP) PO SCH (21:52)
[2018-01-06] MEDS: HEPARIN NA (PORCINE) 5,000 UNITS/ML 1ML VIAL SQ SCH ×2 (06:49→14:21)
[2018-01-06 07:47] LABS: HEMATOCRIT 47.4 % (35.4-49); HEMOGLOBIN 15.8 GM/dL (11.7-16.9); MCH 32.3 pg (25.7-33.7); MCHC 33.4 g/dl (32.0-35.9); MEAN CELL VOLUME 96.6 fl (80-96); MEAN PLT VOLUME 8.9 fl (7.5-11.1); PLATELET COUNT 164 K/MM3 (134-434); RBC 4.91 M/mm3 (4.00-5.60); RDW 13.2 % (11.9-15.9); WHITE BLOOD COUNT 7.2 K/mm3 (4.0-10.0)
--- NOTE | 2018-01-06 08:10 | PN ---
Progress Note, Physician Chief Complaint: doing ok , no new complaints - Current Medication List Current Medications: Active Medications Amlodipine Besylate (Norvasc -) 5 mg PO DAILY [facility] Last Admin: 01/05/18 11:17 Dose: 5 mg Heparin Sodium (Porcine) (Heparin -) 5,000 unit SQ TID [facility] Last Admin: 01/06/18 06:49 Dose: 5,000 unit Hydrochlorothiazide (Hctz -) 12.5 mg PO DAILY [facility] Last Admin: 01/05/18 11:17 Dose: 12.5 mg Losartan Potassium (Cozaar -) 100 mg PO HS [facility] Last Admin: 01/05/18 21:52 Dose: 100 mg - Objective Vital Signs: Vital Signs Temperature 98.0 F 01/06/18 05:00 Pulse Rate 61 01/06/18 05:00 Respiratory Rate 18 01/06/18 05:00 Blood Pressure 131/77 01/06/18 05:00 O2 Sat by Pulse Oximetry (%) 100 01/05/18 21:00 Constitutional: Yes: Well Nourished, No Distress Eyes: Yes: WNL HENT: Yes: WNL Neck: Yes: WNL Cardiovascular: Yes: WNL, Regular Rate and Rhythm Respiratory: Yes: WNL, Regular, CTA Bilaterally Gastrointestinal: Yes: WNL, Normal Bowel Sounds Extremities: Yes: WNL Edema: No Labs: CBC, BMP 01/06/18 07:08 INR, PTT INR 1.04 (0.83-1.09) 01/04/18 06:00 Problem List - Problems (1) Abdominal pain Assessment/Plan: MRCP reviewed - significant for steatosis otherwise no biliary ductal dilatation. hep serologies are pending, will f/u diet as tolerated HTN management he would benefit from an egd - which can be done outpt once the acute cardiopulmonary process has resolved. Code(s): R10.9 - UNSPECIFIED ABDOMINAL PAIN (2) Transaminitis Code(s): R74.0 - NONSPEC ELEV OF LEVELS OF TRANSAMNS & LACTIC ACID DEHYDRGNSE
[2018-01-06 08:36] LABS: ALBUMIN 3.8 g/dl (3.4-5.0); ALK PHOS 87 U/L (45-117); ANION GAP 12 MMOL/L (8-16); BILIRUBIN,TOTAL 0.6 mg/dL (0.2-1); BLOOD UREA NITROGEN 20 mg/dL (7-18); CALCIUM 9.1 mg/dL (8.5-10.1); CHLORIDE 98 mmol/L (98-107); CO2 26 mmol/L (21-32); CREATININE 1.4 mg/dL (0.55-1.3); GLUCOSE,RANDOM 90 mg/dL (74-106); PHOSPHOROUS 3.5 mg/dL (2.5-4.9); POTASSIUM 3.9 mmol/L (3.5-5.1); SGOT/AST 84 U/L (15-37); SGPT/ALT 129 U/L (13-61); SODIUM 137 mmol/L (136-145); TOT PROT 8.1 g/dl (6.4-8.2)
--- NOTE | 2018-01-06 08:56 | PN ---
Progress Note (short form) - Note Progress Note: Vital Signs Temperature 98.0 F 01/06/18 05:00 Pulse Rate 61 01/06/18 05:00 Respiratory Rate 18 01/06/18 05:00 Blood Pressure 131/77 01/06/18 05:00 O2 Sat by Pulse Oximetry (%) 100 01/05/18 21:00 GENERAL: A&Ox3, NAD HEAD: NC/AT, EYES: PERRLA, EOMI EARS, NOSE, THROAT: Ears normal, oropharynx clear without exudates. MMM. NECK: Normal range of motion, supple without lymphadenopathy, JVD, or masses. LUNGS: CTA b/l, No W/R/R HEART: RRR, S1S2 positive, ABDOMEN: positive for BS, soft, ND, NT. EXTREMITIES: 2+ pulses, warm, well-perfused. No calf tenderness. No peripheral edema. 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 Good eye contact. Appropriate mood and affect. SKIN: Warm, dry, normal turgor, no rashes or lesions noted, normal capillary refill. CBCD WBC 7.2 K/mm3 (4.0-10.0) 01/06/18 07:08 RBC 4.91 M/mm3 (4.00-5.60) 01/06/18 07:08 Hgb 15.8 GM/dL (11.7-16.9) 01/06/18 07:08 Hct 47.4 % (35.4-49) 01/06/18 07:08 MCV 96.6 fl (80-96) H 01/06/18 07:08 MCHC 33.4 g/dl (32.0-35.9) 01/06/18 07:08 RDW 13.2 % (11.9-15.9) 01/06/18 07:08 Plt Count 164 K/MM3 (134-434) 01/06/18 07:08 MPV 8.9 fl (7.5-11.1) 01/06/18 07:08 CMP Sodium 137 mmol/L (136-145) 01/06/18 07:08 Potassium 3.9 mmol/L (3.5-5.1) 01/06/18 07:08 Chloride 98 mmol/L (98-107) 01/06/18 07:08 Carbon Dioxide 26 mmol/L (21-32) 01/06/18 07:08 Anion Gap 12 MMOL/L (8-16) 01/06/18 07:08 BUN 20 mg/dL (7-18) H 01/06/18 07:08 Creatinine 1.4 mg/dL (0.55-1.3) H 01/06/18 07:08 Creat Clearance w eGFR 50.86 (>60) 01/06/18 07:08 Random Glucose 90 mg/dL (74-106) 01/06/18 07:08 Calcium 9.1 mg/dL (8.5-10.1) 01/06/18 07:08 Total Bilirubin 0.6 mg/dL (0.2-1) 01/06/18 07:08 AST 84 U/L (15-37) H 01/06/18 07:08 ALT 129 U/L (13-61) H 01/06/18 07:08 Alkaline Phosphatase 87 U/L (45-117) 01/06/18 07:08 Total Protein 8.1 g/dl (6.4-8.2) 01/06/18 07:08 Albumin 3.8 g/dl (3.4-5.0) 01/06/18 07:08 CARDIAC ENZYMES Creatine Kinase 174 IU/L (26-308) 01/04/18 00:10 Troponin I < 0.02 ng/ml (0.00-0.05) 01/04/18 06:00 Current Medications Generic Name Dose Route Start Last Admin Trade Name Louisa PRN Reason Stop Dose Admin Amlodipine Besylate 5 mg 01/04/18 10:00 01/05/18 11:17 Norvasc - PO 5 mg DAILY JEROD Administration Heparin Sodium (Porcine) 5,000 unit 01/04/18 06:00 01/06/18 06:49 Heparin - SQ 5,000 unit TID JERDO Administration Hydrochlorothiazide 12.5 mg 01/04/18 10:00 01/05/18 11:17 Hctz - PO 12.5 mg DAILY JEROD Administration Losartan Potassium 100 mg 01/04/18 03:42 01/05/18 21:52 Cozaar - PO 100 mg HS JEROD Administration Home Medications Medication Instructions Recorded Bisoprolol Fumarate [Zebeta (Nf) -] 10 mg PO DAILY 01/03/18 Valsartan/Hydrochlorothiazide 1 each PO DAILY 01/03/18 [Valsartan-Hctz 320-12.5 mg Tab] EKG with sinus rhythm, no ST or TW changes. 1st degree AV block. ASSESSMENT AND PLAN: Patient is a 67 y/o man with hx of HTN who presented with epigastric pain .He was diagnosed with HTN emergency. # HTN emergency; BP improved. continue current regimen. Continue Losartan echo # Epigastric discomfort, could be cardiac in setting of elevated BP, or from GI tract . No ischemic EKG changes. # Abdominal pain :improved. lipase nL, no abdominal tenderness. with elevated LFTs , will monitor, etiology unclear. no stones or dilation in CBD or intrahepatic duct. liver looks nL, unsure of significance prominence of pancreatic duct. MRI of abdomen is pending. # CHEN : likely in setting of HTN emergency. resolved, monitor. DVT: Heparin Elevtaed LFts ,will hydrate , Hep panel is pending CT of the head pending dclosartan and Hctz due to elevated creatinine
[2018-01-06] MEDS: amLODIPine BESYLATE 5 MG TABLET (FP) PO SCH (10:24)
[2018-01-06] MEDS: HYDROCHLOROTHIAZIDE 12.5 MG CAPSULE (FP) PO SCH (10:24)
[2018-01-06] MEDS ORDERED: CELECOXIB 200 MG CAPSULE PO ONE (12:50)
[2018-01-06] MEDS ORDERED: SODIUM CHLORIDE 1,000 ML IV SCH (13:00)
[2018-01-06] MEDS ORDERED: SODIUM CHLORIDE 0.45% 1,000 ML IV SCH (13:15)
--- NOTE | 2018-01-06 17:53 | DS ---
Physical Exam: SUBJECTIVE: Patient seen and examined Patient is feeling better , no further headache. No further abdominal pain. OBJECTIVE: Vital Signs Temperature 98.1 F 01/06/18 14:00 Pulse Rate 69 01/06/18 14:00 Respiratory Rate 18 01/06/18 09:00 Blood Pressure 125/73 01/06/18 14:00 O2 Sat by Pulse Oximetry (%) 100 01/06/18 09:00 Initial Vital Signs Temp Pulse Resp BP Pulse Ox 97.7 F 62 18 188/81 H 98 01/03/18 18:59 01/03/18 18:59 01/03/18 18:59 01/03/18 18:59 01/03/18 18:59 PHYSICAL EXAM GENERAL: The patient is awake, alert, and fully oriented, in no acute distress. HEAD: Normal with no signs of trauma. EYES: PERRL, extraocular movements intact, sclera anicteric, conjunctiva clear. ENT: Ears normal, oropharynx clear without exudates, moist mucous membranes. NECK: Trachea midline, full range of motion, supple. LUNGS: Breath sounds equal, clear to auscultation bilaterally, no wheezes, no crackles, no accessory muscle use. HEART: Regular rate and rhythm, S1, S2 without murmur, rub or gallop. ABDOMEN: Soft, nontender, nondistended, normoactive bowel sounds, no guarding, no rebound, no hepatosplenomegaly, no masses. EXTREMITIES: 2+ pulses, warm, well-perfused, no edema. NEUROLOGICAL: Cranial nerves II through XII grossly intact. Normal speech, gait not observed. PSYCH: Normal mood, normal affect. SKIN: Warm, dry, normal turgor, no rashes or lesions noted. LABS Laboratory Results - last 24 hr 01/06/18 01/06/18 07:08 07:08 WBC 7.2 RBC 4.91 Hgb 15.8 Hct 47.4 MCV 96.6 H MCH 32.3 MCHC 33.4 RDW 13.2 Plt Count 164 MPV 8.9 Sodium 137 Potassium 3.9 Chloride 98 Carbon Dioxide 26 Anion Gap 12 BUN 20 H Creatinine 1.4 H Creat Clearance w eGFR 50.86 Random Glucose 90 Calcium 9.1 Phosphorus 3.5 Magnesium 2.0 Total Bilirubin 0.6 AST 84 H ALT 129 H Alkaline Phosphatase 87 Total Protein 8.1 Albumin 3.8 Current Medications Generic Name Dose Route Start Last Admin Trade Name Louisa PRN Reason Stop Dose Admin Amlodipine Besylate 5 mg 01/04/18 10:00 01/06/18 10:24 Norvasc - PO 5 mg DAILY JEROD Administration Heparin Sodium (Porcine) 5,000 unit 01/04/18 06:00 01/06/18 14:21 Heparin - SQ 5,000 unit TID JEROD Administration Sodium Chloride 1,000 mls @ 100 mls/hr 01/06/18 13:15 01/06/18 13:27 1/2 Normal Saline IV 01/06/18 23:14 100 mls/hr ASDIR JEROD Administration Home Medications Medication Instructions Recorded Bisoprolol Fumarate [Zebeta (Nf) -] 10 mg PO DAILY 01/03/18 Valsartan/Hydrochlorothiazide 1 each PO DAILY 01/03/18 [Valsartan-Hctz 320-12.5 mg Tab] Amlodipine Besylate [Norvasc -] 10 mg PO DAILY #30 tablet 01/06/18 CT of the head is: no bleed MRCP: no acute pathology EKG with sinus rhythm, no ST or TW changes. 1st degree AV block. HOSPITAL COURSE: Date of Admission:01/04/18 Date of Discharge: 01/06/18 Patient is a 67 y/o man with hx of HTN who presented with epigastric pain and was found to have HTN emergency. # HTN emergency; BP improved. will continue with Norvasc 5mg po bid , will discontinue Losartan and Hctz due to kidney function. # Epigastric discomfort improved , no further pain. No ischemic EKG changes. # Abdominal pain :improved. lipase nL, no abdominal tenderness. with mild elevation of LFTs suggested not to take excedrin for pain. # CHEN : likely in setting of HTN emergency. discontinue LOsartan and Hctz Elevtaed LFts ,will hydrate s/p IVF . Hep panel is still pending( follow with GI in the clinic to check the results) Dc losartan and Hctz due to elevated creatinine discharge time 35min. Discussed with the daughter who is at bedside and also Nedra The nurse translated. Minutes to complete discharge: 35 Discharge Summary Reason For Visit: EPIGASTRIC PAIN,CHEST PAIN,HYPERTENSION Current Active Problems Abdominal pain (Acute) Chest pain (Acute) Epigastric abdominal pain (Acute) Hypertension (Acute) Hypertensive emergency (Acute) Transaminitis (Acute) Condition: Stable - Instructions Diet, Activity, Other Instructions: Please follow up with your primary care doctor for a follow to adjust your blood pressure medications. You may follow up in the [facility] Additional Instructions: * Please call your personal physician to report your Emergency Department visit and to report your progress, if any. * If there is no improvement in symptoms in 2 days call your physician. * Return to the Emergency Department for any worsening symptoms. Referrals: [facility] [Outside] - 24 hours Ruddy Lynne MD [Staff Physician] - Call tomorrow Sixto Mckeon MD [Staff Physician] - Call tomorrow - Home Medications Comprehensive Discharge Medication List: Ambulatory Orders Bisoprolol Fumarate [Zebeta (Nf) -] 10 mg PO DAILY 01/03/18 Valsartan/Hydrochlorothiazide [Valsartan-Hctz 320-12.5 mg Tab] 1 each PO DAILY 01/03/18 Amlodipine Besylate [Norvasc -] 10 mg PO DAILY #30 tablet 01/06/18 This patient is new to me today: No Emergency Visit: Yes ED Registration Date: 01/04/18 Care time: The patient presented to the Emergency Department on the above date and was hospitalized for further evaluation of their emergent condition. Critical Care patient: No - Discharge Referral Referred to [facility] Med P.C.: No
[2018-01-06 18:01] VITALS: BP 126/61; PULSE 62; TEMP 97.4
[2018-01-08 16:16] LABS: HBSAG SCREEN Negative (Negative); HEP A AB, IGM Negative (Negative); HEP B CORE AB, TOT Positive (Negative)
== END 2018-01-06 18:53 | disposition home or self-care (01) ==
LOC: JER 18:57 → JERBED 01-04 03:28 → J4W 01-04 17:03
PROVIDERS: ADMIT Internal Medicine; ATTEND Internal Medicine
PROC: 3E033NZ Introduction of Analgesics, Hypnotics, Sedatives into Peripheral Vein, Percutaneous Approach (ICD-10-PCS; principal; 2018-01-04)
PROC: 3E0337Z Introduction of Electrolytic and Water Balance Substance into Peripheral Vein, Percutaneous Approach (ICD-10-PCS; 2018-01-04)
PROC: 3E013GC Introduction of Other Therapeutic Substance into Subcutaneous Tissue, Percutaneous Approach (ICD-10-PCS; 2018-01-04)
DX: I16.1 Hypertensive emergency (principal); R07.9 Chest pain, unspecified; I10 Essential (primary) hypertension; R10.13 Epigastric pain; R94.5 Abnormal results of liver function studies; N17.9 Acute kidney failure, unspecified; R10.9 Unspecified abdominal pain; R51 Headache; R74.0 Nonspecific elevation of levels of transaminase and lactic acid dehydrogenase [LDH]
CPT/HCPCS: 36415; 70450-TC; 71045-TC-FY; 71046-TC-FY; 74181-TC; 76705-TC; 80048; 80053; 80076; 81003; 82550; 82553; 83690; 83735; 84100; 84484; 85025; 85027; 85610; 85730; 86704; 86706; 86708; 86803; 87340; 93005; 93010; 96372; 96374; 99285-25; G0378; J0735; J1644

== ENCOUNTER 2018-01-10 01:09 | Observation (INO) | payer OTHER ==
[2018-01-10 01:32] VITALS: BMI 29.2
[2018-01-10] MEDS ORDERED: ASPIRIN 81 MG CHEWABLE TABLETS PO ONE (02:24)
--- NOTE | 2018-01-10 02:24 | PDOC ---
History of Present Illness - General History Source: Patient Exam Limitations: No Limitations - History of Present Illness Initial Comments: 01/10/18 02:27 The patient is a 67 year old male with a past medical history of HTN, recent admission for CHEN and HTN emergency; was discharged two days ago presenting to the ER for chest pain and palpitations today. Patient describes the chest pain as sharp and nonradiating. Of note, patient recently had his HTN meds changed to 5mg of amlodipine BID. Patient denies any history of DVT or PE. Patient denies any family history for cardiac issues. Patient denies any recent travel. Patient denies any leg swelling. Allergies: NKDA Surgical history: None reported Social history: No reported alcohol, drug or cigarette use. <Shruthi Troncoso - Last Filed: 01/10/18 02:27> - General History Source: Patient Exam Limitations: No Limitations <Lisseth Sandhu - Last Filed: 01/10/18 06:09> - General Chief Complaint: Chest Pain Stated Complaint: CHEST PAIN Time Seen by Provider: 01/10/18 01:19 Past History <Shruthi Troncoso - Last Filed: 01/10/18 02:27> - Past Medical History Anemia: No Asthma: No Cancer: No Cardiac Disorders: No CVA: No COPD: No CHF: No Dementia: No Diabetes: No GI Disorders: Yes (Colonoscopy 6 mos ago) Disorders: No HTN: Yes Hypercholesterolemia: No Liver Disease: No Seizures: No Thyroid Disease: No - Surgical History Abdominal Surgery: No Appendectomy: No Cardiac Surgery: No Cholecystectomy: No Lung Surgery: No Neurologic Surgery: No Orthopedic Surgery: No - Suicide/Smoking/Psychosocial Hx Smoking History: Never smoked Have you smoked in the past 12 months: No Information on smoking cessation initiated: No Hx Alcohol Use: No Drug/Substance Use Hx: No Substance Use Type: None Hx Substance Use Treatment: Yes <Lisseth Sandhu - Last Filed: 01/10/18 06:09> - Past Medical History Allergies/Adverse Reactions: Allergies Allergy/AdvReac Type Severity Reaction Status Date / Time No Known Allergies Allergy Verified 01/10/18 01:32 Home Medications: Ambulatory Orders Bisoprolol Fumarate [Zebeta (Nf) -] 10 mg PO DAILY 01/03/18 Amlodipine Besylate [Norvasc -] 5 mg PO BID #60 tablet 01/06/18 Review of Systems - Review of Systems Able to Perform ROS?: Yes Comments:: 01/10/18 02:33 ADULT ROS GENERAL/CONSTITUTIONAL: No fever or chills. No weakness. HEAD, EYES, EARS, NOSE AND THROAT: No change in vision. No ear pain or discharge. No sore throat. CARDIOVASCULAR: (+) chest pain. No shortness of breath. RESPIRATORY: No cough, wheezing, or hemoptysis. GASTROINTESTINAL: No nausea, vomiting, diarrhea or constipation. GENITOURINARY: No dysuria, frequency, or change in urination. MUSCULOSKELETAL: No joint or muscle swelling or pain. No neck or back pain. SKIN: No rash NEUROLOGIC: No headache, vertigo, loss of consciousness, or change in strength/ sensation. ENDOCRINE: No increased thirst. No abnormal weight change. HEMATOLOGIC/LYMPHATIC: No anemia, easy bleeding, or history of blood clots. ALLERGIC/IMMUNOLOGIC: No hives or skin allergy. <Shruthi Troncoso - Last Filed: 01/10/18 02:27> *Physical Exam - Vital Signs Last Vital Signs Temp Pulse Resp BP Pulse Ox 97.6 F 103 H 22 H 161/99 100 01/10/18 01:09 01/10/18 01:09 01/10/18 01:09 01/10/18 01:09 01/10/18 01:09 - Physical Exam Comments: 01/10/18 02:33 ADULT EXAM GENERAL: Awake, alert, and fully oriented, in no acute distress HEAD: No signs of trauma EYES: PERRLA, EOMI, sclera anicteric, conjunctiva clear ENT: Auricles normal inspection, hearing grossly normal, nares patent. Moist mucosa NECK: Normal ROM, supple, no lymphadenopathy, JVD, or masses LUNGS: Breath sounds equal, clear to auscultation bilaterally. No wheezes, and no crackles HEART: Regular rate and rhythm, normal S1 and S2, no murmurs, rubs or gallops ABDOMEN: Soft, nontender, normoactive bowel sounds. No guarding, no rebound. No masses EXTREMITIES: Normal range of motion, no edema. No erythema or tenderness. DP/PT pulses 2+ and symmetric. Warm and well perfused. NEUROLOGICAL: Moves all extremities. Normal speech, normal gait SKIN: Warm, Dry, normal turgor, no rashes or lesions noted. <Shruthi Troncoso - Last Filed: 01/10/18 02:27> - Vital Signs Last Vital Signs Temp Pulse Resp BP Pulse Ox 97.6 F 103 H 22 H 161/99 100 01/10/18 01:09 01/10/18 01:09 01/10/18 01:09 01/10/18 01:09 01/10/18 01:09 <Lisseth Sandhu - Last Filed: 01/10/18 06:09> Moderate Sedation - Procedure Monitoring Vital Signs: Procedure Monitoring Vital Signs Temperature 97.6 F 01/10/18 01:09 Pulse Rate 103 H 01/10/18 01:09 Respiratory Rate 22 H 01/10/18 01:09 Blood Pressure 161/99 01/10/18 01:09 O2 Sat by Pulse Oximetry (%) 100 01/10/18 01:09 <Shruthi Troncoso - Last Filed: 01/10/18 02:27> - Procedure Monitoring Vital Signs: Procedure Monitoring Vital Signs Temperature 97.6 F 01/10/18 01:09 Pulse Rate 103 H 01/10/18 01:09 Respiratory Rate 22 H 01/10/18 01:09 Blood Pressure 161/99 01/10/18 01:09 O2 Sat by Pulse Oximetry (%) 100 01/10/18 01:09 <Lisseth Sandhu - Last Filed: 01/10/18 06:09> Procedures - Bedside Ultrasound Bedside Ultrasound: Cardiac Other: see mdm <Lisseth Sandhu - Last Filed: 01/10/18 06:09> ED Treatment Course - LABORATORY CBC & Chemistry Diagram: 01/10/18 02:05 01/10/18 02:05 <Shruthi Troncoso - Last Filed: 01/10/18 02:27> - LABORATORY CBC & Chemistry Diagram: 01/10/18 02:05 01/10/18 02:05 - RADIOLOGY Radiology Studies Ordered: Category Date Time Status CHEST PA & LAT [RAD] Stat Radiology 01/10/18 01:56 Ordered <Lisseth Sandhu - Last Filed: 01/10/18 06:09> Medical Decision Making - Medical Decision Making <Shruthi Troncoso - Last Filed: 01/10/18 02:27> - Medical Decision Making 01/10/18 02:21 67 yo male with h/o HTN, recently admitted for chen htn emergency dc 2 days ago, here today c/o chest pain and palpitations. no h/o pe or dvt. chest pain no radiation. no recent travel. no leg swelling. during admission. pt found to have chen, likely secondary to bp meds, which were switched to amlodipine. had cxr ecg and serial troponins. denies family h/o cad. pt does not smoke. on exam pt awake alert lungs clear heart rrr no mrg abd soft nt nd. no pulsatile mass. ext wwp no edema no calf tenderness. pulses symmetric. differential angina, dissection , pe. plan ct angio if cr permitting. recent chen. labs cxr aspirin, bp control as neee. will require admission to r/o angina. will add d dimer. . tte no signs of rv strain. good contractilty. pt heart rate improved now in 70's 01/10/18 06:08 focused ED TTE performed, indication chest pain four views of heart obtained. parasternal long and short, subxiphoid, apical no pericardial effusion. good contractility. no rv dilation or strain. impression: normal tTE. 01/10/18 06:09 <Lisseth Sandhu - Last Filed: 01/10/18 06:09> *DC/Admit/Observation/Transfer <Shruthi Troncoso - Last Filed: 01/10/18 02:27> - Discharge Dispostion Decision to Admit order: Yes <Lisseth Sandhu - Last Filed: 01/10/18 06:09> Diagnosis at time of Disposition: Chest pain - Discharge Dispostion Condition at time of disposition: Fair
[2018-01-10 02:29] LABS: BASO % 0.6 % (0-2.0); EOS % 7.3 % (0-4.5); HEMATOCRIT 44.8 % (35.4-49); HEMOGLOBIN 16.4 GM/dL (11.7-16.9); LYMPH % 50.4 % (8-40); MCH 34.2 pg (25.7-33.7); MCHC 36.5 g/dl (32.0-35.9); MEAN CELL VOLUME 93.5 fl (80-96); MEAN PLT VOLUME 9.2 fl (7.5-11.1); MONO % 8.7 % (3.8-10.2); PLATELET COUNT 166 K/MM3 (134-434); RBC 4.79 M/mm3 (4.00-5.60); RDW 13.3 % (11.9-15.9); WHITE BLOOD COUNT 7.7 K/mm3 (4.0-10.0)
[2018-01-10] MEDS ORDERED: ASPIRIN 81 MG CHEWABLE TABLETS ONE (02:32)
[2018-01-10 02:50] LABS: ALBUMIN 4.1 g/dl (3.4-5.0); ALK PHOS 87 U/L (45-117); ANION GAP 7 MMOL/L (8-16); BILIRUBIN,TOTAL 0.4 mg/dL (0.2-1); BLOOD UREA NITROGEN 16 mg/dL (7-18); CALCIUM 9.1 mg/dL (8.5-10.1); CHLORIDE 102 mmol/L (98-107); CO2 27 mmol/L (21-32); CREATININE 1.4 mg/dL (0.55-1.3); GLUCOSE,RANDOM 109 mg/dL (74-106); POTASSIUM 4.2 mmol/L (3.5-5.1); SGOT/AST 87 U/L (15-37); SGPT/ALT 146 U/L (13-61); SODIUM 136 mmol/L (136-145); TOT PROT 8.6 g/dl (6.4-8.2)
[2018-01-10] MEDS ORDERED: SODIUM CHLORIDE 0.9% 1000 ML INFUS.BAG IV ONE (05:31)
--- NOTE | 2018-01-10 06:01 | HP ---
CHIEF COMPLAINT: chest pain PCP: HISTORY OF PRESENT ILLNESS: 67 yo male with PMH HTN and recent admission for HTN emergency with CHEN presented to ED with complaint of chest pain. He denies any radiation of the pain and describes it as a sharp pain that began earlier today. Of note he had some palpitations earlier which have now resolved. He denies any SOB, weakness, lightheadedness, n/v/d. ER course was notable for: (1) Trop, negative, no concerning EKG changes (2) ASA 325, 1L NS (3) Tachycardia Recent Travel: none PAST MEDICAL HISTORY: HTN PAST SURGICAL HISTORY: denies Social History: Smoking: Denies Alcohol: denies Drugs: denies Family History: Allergies No Known Allergies Allergy (Verified 01/10/18 01:32) HOME MEDICATIONS: Home Medications Medication Instructions Recorded Bisoprolol Fumarate [Zebeta (Nf) -] 10 mg PO DAILY 01/03/18 Amlodipine Besylate [Norvasc -] 5 mg PO BID #60 tablet 01/06/18 REVIEW OF SYSTEMS CONSTITUTIONAL: Absent: fever, chills, diaphoresis, generalized weakness, malaise, loss of appetite, weight change HEENT: Absent: rhinorrhea, nasal congestion, throat pain, throat swelling, difficulty swallowing, mouth swelling, ear pain, eye pain, visual changes CARDIOVASCULAR: chest pain, palpitations Absent: syncope,, irregular heart rate, lightheadedness, peripheral edema RESPIRATORY: Absent: cough, shortness of breath, dyspnea with exertion, orthopnea, wheezing, stridor, hemoptysis GASTROINTESTINAL: Absent: abdominal pain, abdominal distension, nausea, vomiting, diarrhea, constipation, melena, hematochezia GENITOURINARY: Absent: dysuria, frequency, urgency, hesitancy, hematuria, flank pain, genital pain MUSCULOSKELETAL: Absent: myalgia, arthralgia, joint swelling, back pain, neck pain SKIN: Absent: rash, itching, pallor HEMATOLOGIC/IMMUNOLOGIC: Absent: easy bleeding, easy bruising, lymphadenopathy, frequent infections ENDOCRINE: Absent: unexplained weight gain, unexplained weight loss, heat intolerance, cold intolerance NEUROLOGIC: Absent: headache, focal weakness or paresthesias, dizziness, unsteady gait, seizure, mental status changes, bladder or bowel incontinence PSYCHIATRIC: Absent: anxiety, depression, suicidal or homicidal ideation, hallucinations. PHYSICAL EXAMINATION Vital Signs - 24 hr 01/10/18 01:09 Temperature 97.6 F Pulse Rate 103 H Respiratory 22 H Rate Blood Pressure 161/99 O2 Sat by Pulse 100 Oximetry (%) GENERAL: Awake, alert, and fully oriented, in no acute distress. HEAD: Normal with no signs of trauma. EYES: Pupils equal, round and reactive to light, extraocular movements intact, sclera anicteric, conjunctiva clear EARS, NOSE, THROAT: oropharynx clear without exudates. Moist mucous membranes. LUNGS: Breath sounds equal, clear to auscultation bilaterally. No wheezes, and no crackles. HEART: Regular rate and rhythm, normal S1 and S2 without murmur, rub or gallop. ABDOMEN: Soft, nontender, not distended, normoactive bowel sounds MUSCULOSKELETAL: pain is not reproducible EXTREMITIES: 2+ pulses, warm, well-perfused. No calf tenderness. No peripheral edema. NEUROLOGICAL: Cranial nerves II-XII intact. Normal speech. Laboratory Results - last 24 hr 01/10/18 01/10/18 01/10/18 02:05 02:05 02:05 WBC 7.7 RBC 4.79 Hgb 16.4 Hct 44.8 MCV 93.5 MCH 34.2 H MCHC 36.5 H RDW 13.3 Plt Count 166 MPV 9.2 Absolute Neuts (auto) 2.5 Neutrophils % 33.0 L Lymphocytes % 50.4 H Monocytes % 8.7 Eosinophils % 7.3 H Basophils % 0.6 Nucleated RBC % 0 Sodium 136 Potassium 4.2 Chloride 102 Carbon Dioxide 27 Anion Gap 7 L BUN 16 Creatinine 1.4 H Creat Clearance w eGFR 50.86 Random Glucose 109 H Calcium 9.1 Total Bilirubin 0.4 AST 87 H ALT 146 H Alkaline Phosphatase 87 Creatine Kinase 107 Troponin I < 0.02 Total Protein 8.6 H Albumin 4.1 ASSESSMENT/PLAN: 67 yo male with PMH HTN and recent admission for HTN emergency with HCEN presented to ED with complaint of chest pain. Chest pain, rule out ACS vs PE -EKG and negative troponin noted, less likely ACS -Tachycardia noted, now resolved -D-dimer pending -Denies SOB or cough, less likely PE -Trend Troponin and repeat EKG if changes or worsening chest pain -Echo ordered, bedside echo performed without signs of Right heart strain Elevated BUN/Cr -unchanged since discharge 2 days ago -would continue fluid hydration and trend BMP HTN -noted 161/99 -Resume home b.p meds for now and adjust as necessary Prophylaxis -Heparin 5000 units SQ TID FEN -none -wnl -Na controlled diet Disposition Tele Observation Visit type - Emergency Visit Emergency Visit: Yes ED Registration Date: 01/10/18 Care time: The patient presented to the Emergency Department on the above date and was hospitalized for further evaluation of their emergent condition. - New Patient This patient is new to me today: Yes Date on this admission: 01/10/18 - Critical Care Critical Care patient: No
[2018-01-10 06:59] LABS: INR 1.03 (0.83-1.09); PROTHROMBIN TIME (PATIENT) 12.2 SEC (9.7-13.0)
[2018-01-10] MEDS ORDERED: HEPARIN NA (PORCINE) 5,000 UNITS/ML 1ML VIAL SQ SCH (07:00)
--- NOTE | 2018-01-10 08:39 | PN ---
Teaching Attending Note Name of Resident: Castillo Perez ATTENDING PHYSICIAN STATEMENT I saw and evaluated the patient. I reviewed the resident's note and discussed the case with the resident. I agree with the resident's findings and plan as documented. SUBJECTIVE: Seen and examined; please refer to resident note for further historical information. Overall this is a 67 y/o CM with a PMH significant for recent admission with hypertensive emergency/CHEN. He presents back today with palpitations and SOB similar to his prior presentation. He denies any chest pain, persay, and this was verified b myself speaking to him in [place] and to his DIL to have her story and to have her translate his [place] in case any parts were missed. He was concerned he was having another hypertensive urgency and he then decided due to this that he should come back to the ER. Discharged 4 days ago on Norvasc 5 and bisoprolol 10. Normotensive in the ER 10 sys ROS done and negative aside from HPI PMH and PSH reviewed FH asked and noncontributory Social history negative for alcohol or drug abuse OBJECTIVE: VS, labs, and imaging reviewed NAD, AAOx3, resting in bed RRR s1/2 no mgr Lungs CTAB sym exp NT ND +BS NC AT EOMI PERRLA CN2-12 wnl, no fnd Labs reviewed; initial troponin negative, Cr 1.4, LFTs slightly elevated with AST/ALT EKG reviewed CXR pending ASSESSMENT AND PLAN: Mr. Ryan is a 67 y/o male presenting with SOB as an anginal equivelant and chest pain; this is actually similar to and less severe than his prior symptoms. I spoke with him at length about this both in my own [place] and using his DIL as an diesel service technician. He denies ever having humaira "chest pain." 1) Rule out ACS, anginal equivelant (SOB, palpitations) -He is moderate risk for ACS given his HTN, age, race, gender, BMI. Admit to telemetry, trend troponin, assess risk factors (TSH, A1c, Lipids). Treadmill stress test. EKG reviewed. Initial troponin is negative. Followup CXR -Monitor for any underlying arrhythmias -D-dimer checked in ER 900s but Wells score is 0 putting him at low risk for PE. Given elevated Cr (1.4) can consider monitoring vs. VQ vs. hydrating and trending down. GFR still in 50s. 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 Consider OP nephro referral 3) HTN, controlled -Monitor, keep <160 while inpt while pursuing GDMT 4) Overweight -Cleaner And Presser when clincially appropriate 5) Elevated D Dimer -Per #1 6) Transaminitis -Trending at the same range as his last visit. Continue to trend CMP and recommend further outpateint workup unless further derrangements noted. Full Code
--- NOTE | 2018-01-10 10:11 | PN ---
Physical Exam: SUBJECTIVE: Patient seen and examined. Pt. endorses normal PO intake. Pt. denies N/V/D/C/F/C. Pt. denies any SOB, chest pain currently. Pt. states that he did not have an aggravating or alleviating symptoms to the chest pain and that it started at rest spontaneously. Pt. denies any history of clots, calf pain, recent surgery or long travel recently aside from the 3 hour flight from a few months ago. OBJECTIVE: Vital Signs Period Temp Pulse Resp BP Sys/Jennings Pulse Ox Last 24 Hr 97.6 F-98 F 67-103 12-22 126-161/78-99 97-100 GENERAL: The patient is awake, alert, and fully oriented, in no acute distress. HEAD: Normal with no signs of trauma. EYES: Sclera anicteric, conjunctiva clear. No ptosis. ENT: Ears normal, nares patent, oropharynx clear without exudates, moist mucous membranes. NECK: Trachea midline, full range of motion, supple. LUNGS: Decreased breath sounds on left, clear to auscultation bilaterally, no wheezes, no crackles, no accessory muscle use. HEART: Regular rate and rhythm, S1, S2 without murmur ABDOMEN: Soft, nontender, nondistended, normoactive bowel sounds, no guarding, no rebound EXTREMITIES: 2+ dorsal pedal pulses, warm, no calf tenderness, well-perfused, no edema. NEUROLOGICAL: Normal speech, gait not observed. PSYCH: Normal mood, normal affect. SKIN: Warm, dry, normal turgor, no rashes or lesions noted Laboratory Results - last 24 hr 01/10/18 01/10/18 01/10/18 02:05 02:05 02:05 WBC 7.7 RBC 4.79 Hgb 16.4 Hct 44.8 MCV 93.5 MCH 34.2 H MCHC 36.5 H RDW 13.3 Plt Count 166 MPV 9.2 Absolute Neuts (auto) 2.5 Neutrophils % 33.0 L Lymphocytes % 50.4 H Monocytes % 8.7 Eosinophils % 7.3 H Basophils % 0.6 Nucleated RBC % 0 PT with INR INR D-Dimer Sodium 136 Potassium 4.2 Chloride 102 Carbon Dioxide 27 Anion Gap 7 L BUN 16 Creatinine 1.4 H Creat Clearance w eGFR 50.86 Random Glucose 109 H Calcium 9.1 Total Bilirubin 0.4 AST 87 H ALT 146 H Alkaline Phosphatase 87 Creatine Kinase 107 Troponin I < 0.02 Total Protein 8.6 H Albumin 4.1 01/10/18 01/10/18 05:52 05:52 WBC RBC Hgb Hct MCV MCH MCHC RDW Plt Count MPV Absolute Neuts (auto) Neutrophils % Lymphocytes % Monocytes % Eosinophils % Basophils % Nucleated RBC % PT with INR 12.20 INR 1.03 D-Dimer 938 H Sodium Potassium Chloride Carbon Dioxide Anion Gap BUN Creatinine Creat Clearance w eGFR Random Glucose Calcium Total Bilirubin AST ALT Alkaline Phosphatase Creatine Kinase Troponin I Total Protein Albumin Active Medications Current Medications Heparin Sodium (Porcine) (Heparin -) 5,000 unit SQ TID [facility] Home Medications Medication Instructions Recorded Bisoprolol Fumarate [Zebeta (Nf) -] 10 mg PO DAILY 01/03/18 Amlodipine Besylate [Norvasc -] 5 mg PO BID #60 tablet 01/06/18 ASSESSMENT/PLAN: 67 yo male with PMH HTN and recent admission for HTN urgency(vs. emergency? if truly CHEN) with elevated creatinine presents with complaint of chest pain. Chest pain: R/o ACS vs PE -EKG and negative troponin x 2 noted, less likely ACS -Tachycardia noted, now resolved -D-dimer: 938 -Denies SOB or cough but decreased breath sound on left -Trend Troponin and repeat EKG if changes or worsening chest pain -Echo showed normal EF, moderate MR and TR, moderate LVH, E/A reversal suggestive of diastolic dysfunction, no wall motion abnormalities noted. -CTA- negative for PE -f/u V/Q scan CHEN vs. CKD -elevated Cr. to 1.4 -unchanged since discharge 2 days ago -would continue fluid hydration and trend BMP DM -A1C: 6.2% -no Hx. of DM -f/u outpatient treatment -BGM- stable HTN -noted 161/99 on admission--> now 136/84 -resume home BP medications DVT Ppx. -Heparin 5000 units SQ TID FEN -Encourage PO intake, no IVF -monitor electrolytes and replete as needed -Na controlled diet Disposition D/c planning Visit type - Emergency Visit Emergency Visit: Yes ED Registration Date: 01/10/18 Care time: The patient presented to the Emergency Department on the above date and was hospitalized for further evaluation of their emergent condition. - New Patient This patient is new to me today: Yes Date on this admission: 01/10/18 - Critical Care Critical Care patient: No - Discharge Referral Referred to [facility] Med P.C.: No
--- NOTE | 2018-01-10 11:38 | EKG ---
Test Reason : Blood Pressure : / mmHG Vent. Rate : 103 BPM Atrial Rate : 104 BPM P-R Int : 000 ms QRS Dur : 082 ms QT Int : 366 ms P-R-T Axes : 000 -22 053 degrees QTc Int : 479 ms nsr 1 st degree avb ABNORMAL ECG Confirmed by TERI LOPEZ, SUZE ([id number]) on 01/10/2018 11:38:33 AM Referred By: Confirmed By:SUZE WILLIAMSON MD
--- NOTE | 2018-01-10 12:36 | ECHO ---
Name: VENITA ZAMAN Exam:Adult Echocardiogram Study Date: 01/10/2018 07:39 AM Age: 67 yrs Reason For Study: Chest pain Height: 69 in Weight: 198 lb BSA: 2.1 m2 BP: 136/84 mmHg MMode/2D Measurements & Calculations IVSd: 1.6 cm Ao root diam: 3.0 cm LVIDd: 3.6 cm LA dimension: 2.4 cm LVIDs: 2.3 cm LVPWd: 0.99 cm EDV(Teich): 54.9 ml LAV (MOD-bp): 35.1 ml ESV(Teich): 17.3 ml Doppler Measurements & Calculations MV E max farzad: 54.3 cm/sec MR max farzad: 428.5 cm/sec MV A max farzad: 67.9 cm/sec MR max P.7 mmHg MV E/A: 0.80 MV dec time: 0.22 sec TR max farzad: 192.3 cm/sec Med Peak E' Farzad: 5.8 cm/sec TR max P.8 mmHg Med E/e': 9.4 Lat Peak E' Farzad: 7.8 cm/sec Lat E/e': 6.9 PI Vmax: 168.3 cm/sec Procedure A two-dimensional transthoracic echocardiogram with color flow and Doppler was performed. Left Ventricle There is moderate concentric left ventricular hypertrophy. The left ventricular ejection fraction is normal. E/A reversal consistent with but not diagnostic of poor LV compliance. The left ventricular wall kelley on is normal. Right Ventricle The right ventricle is normal in size and function. Atria Normal left and right atrial size and function. Mitral Valve There is mild mitral valve thickening. There is no mitral valve stenosis. There is moderate mitral regurgitation. Tricuspid Valve There is mild tricuspid valve thickening. There is no tricuspid stenosis. There is mild to moderate t ricuspid regurgitation. Right ventricular systolic pressure is normal. Aortic Valve The aortic valve is normal in structure and function. No hemodynamically significant valvular aortic stenosis. No aortic regurgitation is present. Pulmonic Valve The pulmonic valve is not well visualized. There is no pulmonic valvular stenosis. Moderate pulmonic valvular regurgitation. Great Vessels The aortic root is normal size. Pericardium/Pleura There is no pericardial effusion. Interpretation Summary The left ventricular ejection fraction is normal. There is moderate mitral regurgitation. There is mild to moderate tricuspid regurgitation. Right ventricular systolic pressure is normal. There is moderate concentric left ventricular hypertrophy. E/A reversal consistent with but not diagnostic of poor LV compliance The left ventricular wall motion is normal. MD Ruddy Lynne 01/10/2018 12:35 PM
[2018-01-10] MEDS ORDERED: HEPARIN NA (PORCINE) 5,000 UNITS/ML 1ML VIAL ONE ×2 (14:24→22:26)
[2018-01-10] MEDS: HEPARIN NA (PORCINE) 5,000 UNITS/ML 1ML VIAL SQ SCH ×2 (14:33→22:29)
--- NOTE | 2018-01-10 15:50 | PN ---
Teaching Attending Note Name of Resident: Mariel West ATTENDING PHYSICIAN STATEMENT I saw and evaluated the patient. I reviewed the resident's note and discussed the case with the resident. I agree with the resident's findings and plan as documented. SUBJECTIVE: no fever or chills . reports SOb and palpitations at presentation . he has minimal sx at time of eval at 11 am . he did not see a doctor after his dc last week . he denies painin legs OBJECTIVE: NAD Cv : RRR Lungs: CTAB Abd : soft, Nt, ND , NL BS Ext : no edema or erythema, neg Hufman sign ASSESSMENT AND PLAN: 67 y/o man with h/o HTN, recent admission with diagnosis of hypertensive emergency, hepatic steatosis who presented with SOband palpitations 1- SOB and palpitations: EKG with 1st degree AV block, with L axis. no suspicion for ACS or CAD . clinical suspicion for PE is low, but patient has elevated D dimer with WELLs PE score of 2. echo with nl RV pressure and EKG with no signs of R heart strain. - start with US of LE - if neg, then will ask pulm if VQ scan is indicated. - can not do a CTA due to CKD - dc stress test. 2- HTN: was dc on valsartan/HCTZ and norvasc . he has showed me a bottle of norvasc 5 mg bid only... - will place on dc meds 3- transaminitis : due to hepatosteatosis. no biliary dilation . previous hep serology showed previous exposure to Hep B f/u with GI dispo : pending w/u. if no need for VQ , then can dc
--- NOTE | 2018-01-10 17:48 | PN ---
Progress Note (short form) - Note Progress Note: PULMONARY CONSULTATION DICTATED IMP CP/PALPITATIONS/SOB DOUBT PE BUT CANNOT COMPLETELY EXCLUDE DYSPNEA ELEVATED D-DIMER NONSPECIFIC DIASTOLIC DYSFUNCTION HTN LIKELY CKD PLAN V/Q O2 NEEDED HEPARIN DR DOUGLAS Problem List - Problems (1) D-dimer, elevated Code(s): R79.89 - OTHER SPECIFIED ABNORMAL FINDINGS OF BLOOD CHEMISTRY (2) Chest pain Code(s): R07.9 - CHEST PAIN, UNSPECIFIED (3) Hypertension Code(s): I10 - ESSENTIAL (PRIMARY) HYPERTENSION Qualifiers: Hypertension type: essential hypertension Qualified Code(s): I10 - Essential (primary) hypertension (4) Diastolic dysfunction Code(s): I51.9 - HEART DISEASE, UNSPECIFIED
--- NOTE | 2018-01-10 18:35 | CONS ---
DATE OF CONSULTATION: 01/10/2018 PULMONARY CONSULTATION REFERRING PHYSICIAN: Trevor Wilkerson MD HISTORY OF PRESENT ILLNESS: The patient is a 67-year-old male with a past medical history of hypertension, likely acute on chronic kidney disease, admitted to [facility] with the acute onset of shortness of breath and palpitations. The patient was recently hospitalized at [facility] secondary to hypertensive urgency and acute kidney injury. He also had abdominal pain. The patient was discharged on January 06, 2018 after hospitalization for approximately three days. The patient was apparently doing well until last night at about 11:00 p.m. He was watching TV and developed shortness of breath with palpitations. He denied any nausea, vomiting, diaphoresis, fevers or chills. He presented to the emergency room with the above complaints. In the ER, he had a D-dimer performed which was elevated at over 900. He subsequently underwent an echocardiogram which showed mild diastolic dysfunction but no evidence of pulmonary hypertension or RV dysfunction. Duplexes were negative. The patient denies any history of COPD or asthma. He is a nonsmoker. 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 He was born in the [facility] [place] and arrived here about one month ago. On his current admission, he also complained of chest pain. He described the pain as sharp in character and nonradiating. The patient recently had his hypertension medication changed to 5 mg of amlodipine. PAST MEDICAL HISTORY: Again, this includes hypertension and likely chronic kidney disease. REVIEW OF SYSTEMS: Positive for shortness of breath, palpitations and chest pain. No nausea, vomiting, abdominal pain or lower extremity edema. CURRENT MEDICATIONS: Heparin, amlodipine 5 mg. PHYSICAL EXAMINATION: General: The patient is a well-developed, well-nourished male, awake and alert, in no acute distress. Vital Signs: He is afebrile. Blood pressure is 118/79, respiratory rate 18, O2 saturation is 98% on room air. HEENT: Normocephalic, atraumatic. Neck: Supple. Heart: Regular. S1, S2. Chest: Clear. Abdomen: Soft. Bowel sounds are positive. Extremities: No cyanosis or edema. LABORATORY: WBC is 7.47, hemoglobin 16.4, hematocrit 44.8, platelet count of 166,000. D-dimer is 938, BUN 16, creatinine 1.4. A urinalysis is negative. A chest x-ray shows no infiltrates or effusions. An echocardiogram early left ventricular diastolic compliance, likely diastolic dysfunction, mild to moderate tricuspid regurgitation, moderate mitral regurgitation. IMPRESSION: 1. Sustained palpitations and shortness of breath, currently resolved, etiology to be determined. Low likelihood of a PE but cannot completely exclude this. The patient is at increased risk secondary to recent hospitalization, elevated D-dimer and recent travel. 2. History of hypertension. 3. Chronic kidney disease. 4. Left ventricular diastolic dysfunction. PLAN: 1. Ventilation perfusion lung scan. 2. Heparin. 3. Monitor electrolytes. DESI DOUGLAS M.D. [id number]
[2018-01-11] MEDS: HEPARIN NA (PORCINE) 5,000 UNITS/ML 1ML VIAL SQ SCH ×2 (06:54→15:07)
[2018-01-11 07:45] LABS: BASO % 0.8 % (0-2.0); EOS % 6.6 % (0-4.5); HEMATOCRIT 44.6 % (35.4-49); HEMOGLOBIN 14.9 GM/dL (11.7-16.9); LYMPH % 57.1 % (8-40); MCH 32.4 pg (25.7-33.7); MCHC 33.3 g/dl (32.0-35.9); MEAN CELL VOLUME 97.1 fl (80-96); MEAN PLT VOLUME 9.2 fl (7.5-11.1); MONO % 7.5 % (3.8-10.2); PLATELET COUNT 144 K/MM3 (134-434); RBC 4.59 M/mm3 (4.00-5.60); RDW 12.9 % (11.9-15.9); WHITE BLOOD COUNT 7.3 K/mm3 (4.0-10.0)
[2018-01-11 08:22] LABS: ANION GAP 7 MMOL/L (8-16); BLOOD UREA NITROGEN 16 mg/dL (7-18); CALCIUM 8.7 mg/dL (8.5-10.1); CHLORIDE 102 mmol/L (98-107); CO2 29 mmol/L (21-32); CREATININE 1.2 mg/dL (0.55-1.3); GLUCOSE,RANDOM 78 mg/dL (74-106); MAGNESIUM 2.3 mg/dL (1.8-2.4); PHOSPHOROUS 2.6 mg/dL (2.5-4.9); SODIUM 138 mmol/L (136-145)
[2018-01-11 09:11] VITALS: BP 120/81; PULSE 67; TEMP 97.8
[2018-01-11] MEDS ORDERED: amLODIPine BESYLATE 5 MG TABLET (FP) PO SCH (10:00)
--- NOTE | 2018-01-11 13:09 | PN ---
Teaching Attending Note Name of Resident: Mario Hurst ATTENDING PHYSICIAN STATEMENT I saw and evaluated the patient. I reviewed the resident's note and discussed the case with the resident. I agree with the resident's findings and plan as documented. SUBJECTIVE: No fever or chills , NO CP OBJECTIVE: NAD Cv : RRR, no MRG Lungs: CTAB Ext : no edema or erythema, ASSESSMENT AND PLAN: 67 y/o man with h/o HTN, recent admission with diagnosis of hypertensive emergency, hepatic steatosis who presented with SOband palpitations 1- SOB and palpitations: might need a holter or event monitor as out pt refer to card at dc VQ with low probability for pE 2- HTN: BP is normal on Norvasc. dc BId dosing and start 10 mg daily . script sent 3- transaminitis : has hepatosteatosis. NICK reported + hep C per GI. using purchase request editor, phone [phone] , he was informed f his diagnosis and the complications if not treated ( cirrhosis, HCC, ...) . he understands the risks of ignoring that. he was advised to follow up with Dr. Clement for treatment and further blood work dc home
--- NOTE | 2018-03-30 20:31 | EKG ---
Test Reason : Blood Pressure : / mmHG Vent. Rate : 068 BPM Atrial Rate : 068 BPM P-R Int : 300 ms QRS Dur : 084 ms QT Int : 412 ms P-R-T Axes : 052 -06 042 degrees QTc Int : 438 ms SINUS RHYTHM WITH 1ST DEGREE A-V BLOCK SEPTAL INFARCT , AGE UNDETERMINED ABNORMAL ECG WHEN COMPARED WITH ECG OF 10-JAN-2018 01:22, SINUS RHYTHM HAS REPLACED JUNCTIONAL RHYTHM VENT. RATE HAS DECREASED BY 35 BPM SEPTAL INFARCT IS NOW PRESENT Confirmed by TERI LOPEZ, SUZE ([id number]) on 03/30/2018 8:31:14 PM Referred By: Confirmed By:SUZE WILLIAMSON MD
== END 2018-01-11 15:45 | disposition home or self-care (01) ==
LOC: JER 01:09 → JERBED 05:32 → J4W 01-11 03:49
PROVIDERS: ADMIT Internal Medicine; ATTEND Internal Medicine
PROC: 3E0337Z Introduction of Electrolytic and Water Balance Substance into Peripheral Vein, Percutaneous Approach (ICD-10-PCS; principal; 2018-01-10)
PROC: 3E013GC Introduction of Other Therapeutic Substance into Subcutaneous Tissue, Percutaneous Approach (ICD-10-PCS; 2018-01-10)
DX: R07.9 Chest pain, unspecified (principal); R00.2 Palpitations; R06.02 Shortness of breath; I10 Essential (primary) hypertension; R79.89 Other specified abnormal findings of blood chemistry; R74.0 Nonspecific elevation of levels of transaminase and lactic acid dehydrogenase [LDH]; I44.0 Atrioventricular block, first degree; I51.9 Heart disease, unspecified; E66.3 Overweight; Z68.29 Body mass index [BMI] 29.0-29.9, adult
CPT/HCPCS: 36415; 71045-TC-FY; 71046-TC-FY; 78582-TC; 80048; 80053; 80061; 82550; 83036; 83721; 83735; 84100; 84443; 84484; 85025; 85379; 85610; 87389; 93005; 93010; 93306-TC; 93970-TC; 96372; 99285-25; A9539; A9540; G0378; J1644; J7030

== ENCOUNTER 2018-03-29 21:47 | Emergency (ER) | payer OTHER ==
[2018-03-29 21:57] VITALS: TEMP 98.2; BMI 27.6
--- NOTE | 2018-03-29 22:13 | PDOC ---
Attending Attestation - HPI HPI: 03/29/18 23:16 The patient is a 67 year old male with a PMH of HTN presents to the ED with lightheadedness and nausea since this morning. Patient had decreased PO intake today. He also reports having one episode of NB, NB vomit after having dinner today. Patient denies eating anything out of the ordinary. Patient is also complaining of right upper quadrant pain, shortness of breath and a mild headache. The patient denies chest pain, dizziness, fever, chills, diarrhea and constipation. Denies dysuria, frequency, urgency and hematuria. Allergies: NKA Past surgical history: None reported. Social history: No reported alcohol, drug or cigarette use. <Shruthi Troncoso - Last Filed: 03/29/18 23:16> - Resident Resident Name: Abhishek Kimble - Physicial Exam PE: 03/30/18 00:49 Agree with resident exam. patient is alert and oriented x 3 with dry muccous membranes. Lungs are clear. Heart has regular rate and rhythm with no murmurs. Abdomen is soft, non tender and non distended. - Medical Decision Making 03/30/18 00:58 Pt presents to the Ed complaining of a one day history of lightheadness and mild nausea. Appeared mildly dehydrated. Symptoms resolved after IV hydration in the ED. Labs checked to evaluate for ACS or severe infection and are negative. Will discharge home. <Purvi Avendano - Last Filed: 03/30/18 01:00>
--- NOTE | 2018-03-29 22:14 | PDOC ---
History of Present Illness - General Chief Complaint: Shortness of Breath Stated Complaint: SOB Time Seen by Provider: 03/29/18 22:13 - History of Present Illness Initial Comments: 03/29/18 22:13 67 yo male with PMH HTN presents with chief complaint of dizziness which he noticed upon waking up today and shortness of breath which also developed today. He states that following dinner he had one episode of non bloody vomiting as well. He is also currently complaining of RUQ pain and a mild headache. He states he has never had SOB like this in the past. Denies any chest pain currently. States he does have nausea but has only had the one episode of vomiting and denies any diarrhea. Past History - Travel Traveled outside of the country in the last 30 days: No - Past Medical History Allergies/Adverse Reactions: Allergies Allergy/AdvReac Type Severity Reaction Status Date / Time No Known Allergies Allergy Verified 03/29/18 21:58 Home Medications: Ambulatory Orders Amlodipine Besylate [Norvasc -] 10 mg PO DAILY #30 tablet 01/11/18 Anemia: No Asthma: No Cancer: No Cardiac Disorders: Yes CVA: No COPD: No CHF: No Dementia: No Diabetes: No GI Disorders: Yes Disorders: No HTN: Yes Hypercholesterolemia: No Liver Disease: No Seizures: No Thyroid Disease: No - Surgical History Abdominal Surgery: No Appendectomy: No Cardiac Surgery: No Cholecystectomy: No Lung Surgery: No Neurologic Surgery: No Orthopedic Surgery: No - Immunization History Immunization Up to Date: Yes - Suicide/Smoking/Psychosocial Hx Smoking History: Never smoked Have you smoked in the past 12 months: No Information on smoking cessation initiated: No Hx Alcohol Use: No Drug/Substance Use Hx: No Substance Use Type: None Hx Substance Use Treatment: No Review of Systems - Review of Systems Constitutional: Yes: Chills. No: Diaphoresis, Fever HEENTM: No: Eye Pain Respiratory: Yes: Orthopnea, Shortness of Breath. No: Cough, SOB with Exertion Cardiac (ROS): No: Chest Pain, Edema, Chest Tightness ABD/GI: Yes: Vomiting. No: Abdominal Distended, Constipated, Diarrhea : No: Hematuria Musculoskeletal: Yes: Back Pain Neurological: Yes: Headache *Physical Exam - Vital Signs Last Vital Signs Temp Pulse Resp BP Pulse Ox 98.2 F 79 17 145/74 100 03/29/18 21:55 03/29/18 21:55 03/29/18 21:55 03/29/18 21:55 03/29/18 21:55 - Physical Exam Comments: 03/29/18 22:13 GEN: A&O, mild acute distress HEENT: no lymphadenopathy, dry mucus membranes NECK: supple, no lymphadenopathy HEART: RRR, no murmurs or rubs LUNGS: CTA b/l, no wheezes or crackles ABDOMEN: soft, normoactive bowel sounds, tender to palpation in RUQ EXTREMITIES: 2+ pulses, no peripheral edema, no calf tenderness Moderate Sedation - Procedure Monitoring Vital Signs: Procedure Monitoring Vital Signs Temperature 98.2 F 03/29/18 21:55 Pulse Rate 79 03/29/18 21:55 Respiratory Rate 17 03/29/18 21:55 Blood Pressure 145/74 03/29/18 21:55 O2 Sat by Pulse Oximetry (%) 100 03/29/18 21:55 ED Treatment Course - LABORATORY CBC & Chemistry Diagram: 03/29/18 23:57 03/29/18 23:57 Medical Decision Making - Medical Decision Making 03/29/18 22:16 67 yo male with PMH HTN presents with chief complaint of dizziness, SOB worse when lying flat, and one episode of vomiting. Blood pressure currently well controlled. Will order CBC, CMP, Flu swab, BNP, Cardiac Profile, RUQ US for now. Recent ECHO noted with LVH, normal EF. 1L Bolus LR. 03/30/18 00:27 CBC reported wnl. 11% Monocytes noted, Chemistry pending 03/30/18 00:51 Chemistry without any concerning findings. BNP 110, troponin negative. Cr 1.4 which is around the pt's baseline on previous visits. Pt is feeling better after 1L LR with no further dizziness and SOB has improved. Pt states he feels well enough to go home at this time. Family present and in agreement. *DC/Admit/Observation/Transfer Diagnosis at time of Disposition: Dizziness - Discharge Dispostion Disposition: HOME Condition at time of disposition: Stable Decision to Admit order: No - Referrals Referrals: Kemar Rosario [Non Staff, Medical] - 1 week - Patient Instructions Printed Discharge Instructions: DI for Dizziness-Nonvertigo, DI for Dehydration -- Adult Additional Instructions: You were seen in the Emergency room with a complaint of dizziness and difficulty breathing. Labs were done which did not reveal any concerning findings and you were given a Liter of fluid which resolved most of your symptoms. It is likely that you were dehydrated which led to your dizziness. At this point you are medically safe to go home. You should be sure to drink plenty of fluids for the next few days to make sure that you stay hydrated. You should follow up with your primary care physician within one week of discharge from the hospital. You should continue your home medications as they are prescribed. If you have any concerning symptoms you should be evaluated by your doctor or return to the emergency department. - Post Discharge Activity Activity Comments: 03/30/18 00:57 You can resume all activity as tolerated.
[2018-03-29] MEDS ORDERED: LACTATED RINGERS SOLUTION 1000 ML INFUS.BAG IV ONE (23:48)
[2018-03-30 00:06] LABS: BASO % 0.1 % (0-2.0); HEMATOCRIT 47.2 % (35.4-49); HEMOGLOBIN 16.6 GM/dL (11.7-16.9); MCH 33.5 pg (25.7-33.7); MCHC 35.2 g/dl (32.0-35.9); MEAN CELL VOLUME 95.1 fl (80-96); MEAN PLT VOLUME 8.9 fl (7.5-11.1); MONO % 11.8 % (3.8-10.2); NEUT % 71.1 % (42.8-82.8); PLATELET COUNT 173 K/MM3 (134-434); RBC 4.96 M/mm3 (4.00-5.60); RDW 12.8 % (11.9-15.9); WHITE BLOOD COUNT 9.3 K/mm3 (4.0-10.0)
[2018-03-30 00:35] LABS: ALBUMIN 3.9 g/dl (3.4-5.0); ALK PHOS 103 U/L (45-117); ANION GAP 4 MMOL/L (8-16); BILIRUBIN,TOTAL 0.4 mg/dL (0.2-1); BLOOD UREA NITROGEN 13 mg/dL (7-18); CALCIUM 8.7 mg/dL (8.5-10.1); CHLORIDE 104 mmol/L (98-107); CO2 30 mmol/L (21-32); CREATININE 1.4 mg/dL (0.55-1.3); GLUCOSE,RANDOM 145 mg/dL (74-106); POTASSIUM 4.4 mmol/L (3.5-5.1); SGOT/AST 76 U/L (15-37); SGPT/ALT 113 U/L (13-61); SODIUM 137 mmol/L (136-145); TOT PROT 8.2 g/dl (6.4-8.2)
[2018-03-30 00:43] LABS: N-TERMINAL BNP 110.7 pg/ml (5-125)
[2018-03-30 01:26] VITALS: BP 133/77; PULSE 82
--- NOTE | 2018-04-07 22:13 | EKG ---
Test Reason : Blood Pressure : / mmHG Vent. Rate : 077 BPM Atrial Rate : 077 BPM P-R Int : 290 ms QRS Dur : 082 ms QT Int : 396 ms P-R-T Axes : 056 -11 042 degrees QTc Int : 448 ms SINUS RHYTHM WITH 1ST DEGREE A-V BLOCK SEPTAL INFARCT (CITED ON OR BEFORE 10-JAN-2018) ABNORMAL ECG WHEN COMPARED WITH ECG OF 10-JAN-2018 16:22, NO SIGNIFICANT CHANGE WAS FOUND Confirmed by TAMRA MELGOZA MD ([id number]) on 04/07/2018 10:13:22 PM Referred By: Confirmed By:TAMRA MELGOZA MD
== END 2018-03-30 01:26 | disposition home or self-care (01) ==
LOC: JER 21:47
DX: R42 Dizziness and giddiness (principal); I25.10 Atherosclerotic heart disease of native coronary artery without angina pectoris; I10 Essential (primary) hypertension
CPT/HCPCS: 36415; 71045-TC-FY; 80053; 82550; 83880; 84484; 85025; 93005; 93010; 99282-25

== ENCOUNTER 2018-07-23 13:02 | Emergency (ER) | payer OTHER | END 2018-07-23 18:57 | disposition home or self-care (01) | LOC: JER 13:02 ==

== ENCOUNTER 2018-08-28 11:09 | Emergency (ER) | payer OTHER ==
[2018-08-28 11:34] VITALS: BP 129/68; PULSE 57; TEMP 98; BMI 27.3
[2018-08-28] MEDS ORDERED: BACITRACIN 0.9 GM PACKET TP ONE (11:38)
[2018-08-28] MEDS ORDERED: DIPHTH,PERTUSS(ACELL),TET 0.5 ML DISP.SYRIN IM ONE ×2 (11:38→11:43)
[2018-08-28] MEDS ORDERED: BACITRACIN 15 GM TUBE TOPICAL OINTMENT ONE (11:42)
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
[2018-08-28] MEDS ORDERED: SILVER SULFADIAZINE 1% TOP CREAM 50 GM JAR TP ONE ×2 (11:49→11:54)
== END 2018-08-28 12:25 | disposition home or self-care (01) ==
LOC: JERFT 11:09
PROC: 3E0234Z Introduction of Serum, Toxoid and Vaccine into Muscle, Percutaneous Approach (ICD-10-PCS; principal; 2018-08-28)
PROC: 2W2EX4Z Dressing of Right Hand using Bandage (ICD-10-PCS; 2018-08-28)
DX: T23.002A Burn of unspecified degree of left hand, unspecified site, initial encounter (principal); X16.XXXA Contact with hot heating appliances, radiators and pipes, initial encounter; Y93.89 Activity, other specified; Y92.89 Other specified places as the place of occurrence of the external cause; Y99.8 Other external cause status
CPT/HCPCS: 16025; 90471; 90715; 99281-25

== ENCOUNTER 2018-11-08 21:16 | Inpatient (IN) | payer OTHER ==
--- NOTE | 2018-11-08 21:28 | PDOC ---
Rapid Medical Evaluation Chief Complaint: Shortness of Breath Time Seen by Provider: 11/08/18 21:24 Medical Evaluation: Allergies Allergy/AdvReac Type Severity Reaction Status Date / Time No Known Allergies Allergy Verified 08/28/18 11:14 11/08/18 21:25 67 year old male c/o SOB and weakness with dizziness since 12 pm. seen by pcp today told he has high blood pressure. PCP: Dr. Kemar Rosario. PE: patient alert ox3 A: labs ekg chest xray Discharge Disposition - Diagnosis Shortness of breath - Referrals - Patient Instructions - Post Discharge Activity
[2018-11-08 22:01] LABS: BASO % 0.6 % (0-2.0); EOS % 8.8 % (0-4.5); HEMATOCRIT 46.7 % (35.4-49); HEMOGLOBIN 15.9 GM/dL (11.7-16.9); LYMPH % 51.6 % (8-40); MCH 32.2 pg (25.7-33.7); MCHC 34.1 g/dl (32.0-35.9); MEAN CELL VOLUME 94.6 fl (80-96); MEAN PLT VOLUME 8.7 fl (7.5-11.1); MONO % 8.2 % (3.8-10.2); NEUT % 30.8 % (42.8-82.8); PLATELET COUNT 147 K/MM3 (134-434); RBC 4.94 M/mm3 (4.00-5.60); RDW 13.7 % (11.9-15.9); WHITE BLOOD COUNT 6.3 K/mm3 (4.0-10.0)
[2018-11-08] MEDS ORDERED: FUROSEMIDE 40 MG TABLET (FP) PO ONE (22:03)
[2018-11-08] MEDS ORDERED: FUROSEMIDE 40 MG TABLET (FP) ONE (22:14)
--- NOTE | 2018-11-08 22:15 | PDOC ---
History of Present Illness - General Chief Complaint: Shortness of Breath Stated Complaint: SOB/HYPERTENTION Time Seen by Provider: 11/08/18 21:24 History Source: Patient, Family Exam Limitations: Language Barrier - History of Present Illness Initial Comments: 11/08/18 22:08 67yo M with PMH of HTN presenting to ED with complaints of dizziness and sob. Symptoms started this afternoon. Pt went to his PMD office, was found to be hypertensive and discharged home with an increase in his lisinopril dose from 5mg daily to 10mg daily. Pt states that he did not feel any better. He was his normal self this morning. Dizziness not worsened or triggered by head movements or position changes. Denies cough, fevers, chills, leg swelling, recent travel, abdominal pain, n/v/d, chest pain, changes in vision. He only takes Lasix when he has edema. He took all of his medications this morning and will start new dose of lisinopril tomorrow AM. He has had symptoms like this in the past. No history of MO or CVA in the family, is a non smoker. PMD: Oren PMH: see hpi PSH: none Meds: lisinopril 10mg, atenolol 100mg, furosemide 40mg Allergies: nkda Past History - Past Medical History Allergies/Adverse Reactions: Allergies Allergy/AdvReac Type Severity Reaction Status Date / Time No Known Allergies Allergy Verified 11/08/18 21:25 Home Medications: Ambulatory Orders Furosemide [Lasix -] 40 mg PO DAILY #7 tablet 07/23/18 Lisinopril 10 mg PO DAILY 11/09/18 Anemia: No Asthma: No Cancer: No Cardiac Disorders: No CVA: No COPD: No CHF: No Dementia: No Diabetes: No GI Disorders: Yes Disorders: No HTN: Yes Hypercholesterolemia: No Liver Disease: No Seizures: No Thyroid Disease: No - Surgical History Abdominal Surgery: No Appendectomy: No Cardiac Surgery: No Cholecystectomy: No Lung Surgery: No Neurologic Surgery: No Orthopedic Surgery: No - Immunization History Immunization Up to Date: Yes - Psycho Social/Smoking Cessation Hx Smoking History: Never smoked Have you smoked in the past 12 months: No Hx Alcohol Use: No Drug/Substance Use Hx: No Substance Use Type: None Hx Substance Use Treatment: No Review of Systems - Review of Systems Constitutional: No: Symptoms Reported HEENTM: No: Symptoms Reported Respiratory: Yes: Shortness of Breath. No: Cough, Wheezing, Productive cough Cardiac (ROS): Yes: Lightheadedness. No: Chest Pain, Palpitations, Syncope, Chest Tightness ABD/GI: No: Symptoms Reported : No: Symptoms Reported Musculoskeletal: No: Symptoms Reported Integumentary: No: Symptoms Reported Neurological: Yes: Dizziness *Physical Exam - Vital Signs Last Vital Signs Temp Pulse Resp BP Pulse Ox 98.0 F 51 L 18 175/85 H 100 11/08/18 21:25 11/08/18 21:25 11/08/18 21:25 11/08/18 21:25 11/08/18 21:25 - Physical Exam General Appearance: Yes: Nourished, Appropriately Dressed. No: Apparent Distress HEENT: positive: EOMI, JAK, Normal ENT Inspection, Other (no nystagmus) Neck: positive: Trachea midline, Supple. negative: Lymphadenopathy (R), Lymphadenopathy (L) Respiratory/Chest: positive: Lungs Clear, Normal Breath Sounds. negative: Crackles, Rales, Rhonchi, Stridor, Wheezing Cardiovascular: positive: Regular Rhythm, S1, S2, Bradycardia. negative: Edema , JVD, Murmur Vascular Pulses: Dorsalis-Pedis (R): 2+, Doralis-Pedis (L): 2+ Gastrointestinal/Abdominal: positive: Normal Bowel Sounds, Soft Musculoskeletal: negative: CVA Tenderness, Decreased Range of Motion Extremity: positive: Normal Capillary Refill, Pelvis Stable. 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 negative: Facial Droop, Numbness, Confused, Disoriented Heart Score/ECG Review - History History: Slightly suspicious - Electrocardiogram EKG: Normal - Age Age: >/= 65 - Risk Factors Risk Factors Heart Score: Yes Hx Hypertension Based on the list above the patient has:: 1-2 risk factors - Troponin Troponin: </= normal limit - Score Heart Score - Total: 3 ED Treatment Course - LABORATORY CBC & Chemistry Diagram: 11/08/18 21:50 11/08/18 21:50 - ADDITIONAL ORDERS Additional order review: 11/08/18 21:50 RBC 4.94 MCV 94.6 MCHC 34.1 RDW 13.7 MPV 8.7 Neutrophils % 30.8 L Lymphocytes % 51.6 H Monocytes % 8.2 Eosinophils % 8.8 H Basophils % 0.6 - RADIOLOGY Radiology Studies Ordered: Category Date Time Status CHEST PA & LAT [RAD] Stat Radiology 11/08/18 21:36 Ordered Medical Decision Making - Medical Decision Making 11/08/18 22:15 67yo M with PMH of HTN presenting to ED with complaints of lightheadedness/ dizziness and sob. Symptoms started this afternoon. Pt went to his PMD office, was found to be hypertensive and discharged home with an increase in his lisinopril dose from 5mg daily to 10mg daily. Pt states that he did not feel any better. He was his normal self this morning. Denies cough, fevers, chills, leg swelling, recent travel, abdominal pain, n/v/d, chest pain, changes in vision. He only takes Lasix when he has edema. He took all of his medications this morning and will start new dose of lisinopril tomorrow AM. He has had symptoms like this in the past. No history of MO or CVA in the family, is a non smoker. Vitals; hypertensive, bradycardic normal phsyical exam, lungs cta, normal heart sounds, no pedal edema, normal neurological exam. ddx includes but not limited to hypertensive emergency v. urgency, acs, pna, pe , chf, copd, ptx, symptomatic bradycardia although pt does take b-blockers, he is not tachypneic, normal o2 saturation. low suspicion for PE. will obtain labs including bnp, trop, ekg, cxr. will give lasix and reassess. 11/09/18 01:56 bp continues to be elevated, pt endorses some resolution of dizziness but is still present. giving 10mg lisinopril. bp still elevated. pt still has symptoms. will give 10mg hydralazine iv. CT head to check for bleed. ct: The ventricular system is midline and nondilated. The sulcal pattern is normal for the patient's age. There is no bleed, mass, extra-axial fluid collection or mass effect. No skull fracture or skull lesion is identified. Multifocal sinus mucosal thickening may represent sinusitis. The visualized mastoid air cells are clear. pt will benefit from admission for uncontrolled hypertension Discharge - Discharge Information Problems reviewed: Yes Clinical Impression/Diagnosis: Shortness of breath Hypertension Qualifiers: Hypertension type: unspecified Qualified Code(s): I10 - Essential (primary) hypertension Condition: Good - Admission Yes - Follow up/Referral - Patient Discharge Instructions Print Language: ARMENIAN - Post Discharge Activity
--- NOTE | 2018-11-08 22:16 | PDOC ---
Attending Attestation - Resident Resident Name: Vonnie Osei - ED Attending Attestation I have performed the following: I have examined & evaluated the patient, The case was reviewed & discussed with the resident, I agree w/resident's findings & plan, Exceptions are as noted - HPI HPI: 11/08/18 22:15 67M pmh HTN here with lightheadedness, sob. Symptoms started earlier today, gradual onset, non-exertional. He was evaluated by his PMH, found acute htn and was sent home with an increase in his lisinopril from 5mg to 10mg. Symptoms did not change so he is here for re-evaluation. No other complaints. - Physicial Exam PE: 11/09/18 03:22 Agree with exam as documented by resident - Medical Decision Making 11/08/18 22:33 SOB, htn. BP is normally well controlled, pt compliant with medications Evaluate for end organ damage f/u labs, ekg, cxr dispo per clinical course
[2018-11-08 22:36] LABS: ALBUMIN 4.2 g/dl (3.4-5.0); ALK PHOS 93 U/L (45-117); ANION GAP 6 MMOL/L (8-16); BILIRUBIN,TOTAL 0.4 mg/dL (0.2-1); BLOOD UREA NITROGEN 19.6 mg/dL (7-18); CALCIUM 9.1 mg/dL (8.5-10.1); CHLORIDE 101 mmol/L (98-107); CO2 30 mmol/L (21-32); CREATININE 1.5 mg/dL (0.55-1.3); GLUCOSE,RANDOM 90 mg/dL (74-106); POTASSIUM 3.7 mmol/L (3.5-5.1); SGOT/AST 67 U/L (15-37); SGPT/ALT 100 U/L (13-61); SODIUM 137 mmol/L (136-145); TOT PROT 8.4 g/dl (6.4-8.2)
[2018-11-08] MEDS ORDERED: ACETAMINOPHEN 500 MG TABLET (FP) PO ONE (22:52)
[2018-11-08] MEDS ORDERED: ACETAMINOPHEN 325 MG TABLET (FP) ONE (23:03)
[2018-11-08 23:53] LABS: N-TERMINAL BNP 182 pg/ml (5-125)
[2018-11-08] MEDS ORDERED: LISINOPRIL 10 MG TABLET (FP) PO ONE (23:59)
[2018-11-09] MEDS ORDERED: LISINOPRIL 5 MG TABLET (FP) ONE (00:14)
[2018-11-09] MEDS ORDERED: hydrALAZINE HCL 20 MG/ML VIAL IVPUSH ONE (01:24)
[2018-11-09] MEDS ORDERED: hydrALAZINE HCL 20 MG/ML VIAL ONE (02:06)
[2018-11-09 02:13] LABS: INR 1.02 (0.83-1.09)
--- NOTE | 2018-11-09 03:42 | PN ---
Teaching Attending Note Name of Resident: Carlos A Olea ATTENDING PHYSICIAN STATEMENT I saw and evaluated the patient. I reviewed the resident's note and discussed the case with the resident. I agree with the resident's findings and plan as documented. SUBJECTIVE: Patient is a 67 year old man with a PMH of HTN presenting to the ER with complaints of dizziness and SOB. Symptoms started this afternoon. He went to his PMD's office, and was found to be hypertensive and discharged home with an increase in his lisinopril dose from 5mg daily to 10mg daily. Patient states that he did not feel any better. He was his normal self this morning. Dizziness not worsened or triggered by head movements or position changes. Denies cough, fevers, chills, leg swelling, recent travel, abdominal pain, nausea, vomiting, diarrhea, chest pain or changes in vision. He only takes Lasix when he has edema. He took all of his medications this morning and will start new dose of lisinopril tomorrow AM. He has had symptoms like this in the past. No history of VA or CVA in the family. He is a nonsmoker. Had contact with family member who had a viral illness recently. OBJECTIVE: Alert Vital Signs Period Temp Pulse Resp BP Sys/Jennings Pulse Ox Last 24 Hr 98.0 F 51-54 18-18 134-201/77-94 100-100 HEENT: No Jaundice, eye redness or discharge, PERRLA, EOMI. Normocephalic, atraumatic. External ears are normal and hearing is grossly intact. No nasal discharge. Neck: Supple, nontender. No palpable adenopathy or thyromegaly. No JVD Chest: Good effort. Clear to auscultation and percussion. Heart: Regular. No S3, rub or murmur Abdomen: Not distended, soft, nontender and no HSM. No rebound or guarding. Normal bowel sounds. Ext: Peripheral pulses intact. No leg edema. Skin: Warm and dry. No petechiae, rash or ecchymosis. Neuro: Alert. Oriented x3. CN 2-12 grossly intact. Sensation grossly intact in all four extremities and DTR are symmetric. Psych: Appropriate mood and affect. Good insight. Home Medications Medication Instructions Recorded Furosemide [Lasix -] 40 mg PO DAILY #7 tablet 07/23/18 Lisinopril 10 mg PO DAILY 11/09/18 Abnormal Lab Results 11/08/18 11/08/18 21:50 21:50 Neutrophils % 30.8 L Lymphocytes % 51.6 H Eosinophils % 8.8 H Anion Gap 6 L BUN 19.6 H Creatinine 1.5 H AST 67 H ALT 100 H B-Natriuretic Peptide 182 H Total Protein 8.4 H ASSESSMENT AND PLAN: 1. Hypertensive urgency - No acute abnormality on CXR and on noncontrast head CT. EKG showed sinus bradycardia with no significant ST-T wave changes. Urinalysis pending. Patient got IV Lasix, IV Hydralazine and PO Lisinopril in the ER and the BP improved. If dizziness persists, will need a brain MRI. Will restart his outpatient antihypertensive drugs and revise regimen to ensure [id number] excellent BP control and director of group counseling program patient on the injurious effects of uncontrolled hypertension. Nonpharmacologic measures to control hypertension like weight loss, salt restriction and exercise discussed. Importance of adherence to treatment regimen and attainment of normotension emphasized. Get HbA1c, trend LFTs and UA. Will continue comprehensive care for all of patients comorbid conditions. 2. CKD? - Has risk factor for CKD. Will get kidney sonogram and encourage liberal oral fluid intake. Will avoid nephrotoxic agents such as NSAIDS, aminoglycosides, contrast dyes and certain Alternative medicine products. 3. DVT prophylaxis - Heparin 5000u sq tid. 4. Advance directives - Full code
[2018-11-09 04:13] LABS: BASO % 0.6 % (0-2.0); EOS % 7.1 % (0-4.5); HEMATOCRIT 48.1 % (35.4-49); HEMOGLOBIN 16.4 GM/dL (11.7-16.9); LYMPH % 51.2 % (8-40); MCH 32.1 pg (25.7-33.7); MEAN CELL VOLUME 94.3 fl (80-96); MONO % 8.9 % (3.8-10.2); NEUT % 32.2 % (42.8-82.8); PLATELET COUNT 158 K/MM3 (134-434); RBC 5.11 M/mm3 (4.00-5.60); RDW 13.7 % (11.9-15.9); WHITE BLOOD COUNT 7.2 K/mm3 (4.0-10.0)
[2018-11-09 04:41] LABS: ALBUMIN 4.2 g/dl (3.4-5.0); BILIRUBIN,TOTAL 0.6 mg/dL (0.2-1); BLOOD UREA NITROGEN 17.9 mg/dL (7-18); CALCIUM 9.2 mg/dL (8.5-10.1); CREATININE 1.5 mg/dL (0.55-1.3); POTASSIUM 3.4 mmol/L (3.5-5.1); TOT PROT 8.5 g/dl (6.4-8.2)
[2018-11-09] MEDS ORDERED: POTASSIUM CHLORIDE TABS 20 MEQ TABLET.ER (FP) PO ONE (06:03)
[2018-11-09] MEDS ORDERED: ACETAMINOPHEN 1000 MG/100 ML VIAL (NON FORMULARY) IVPB ONE (06:04)
--- NOTE | 2018-11-09 06:06 | HP ---
CHIEF COMPLAINT: PCP: Dr. Lott HISTORY OF PRESENT ILLNESS: 67 y/o/m with PMHx of HTN came to the ER for dizziness. Patient states that his BP was elevated and he had dizziness yesterday so he went to see his PCP. He was on Lisinopril 5mg and his PCP increased his dose to 10mg. He only took 5mg of Lisinopril yesterday. He was still feeling dizzy after leaving his PCPs office and decided to come to the ED. He describes his dizziness as the room spinning. He had SOB yesterday which lasted for 3 hours and resolved without intervention. His and his son recently had a viral illness but he was not ill himself. He complains of numbness and tingling in his feet which is intermittent and he does not currently have. He also complains of chronic back pain. Patient complains of a headache for the last 3 hours which started after he arrived in the ER. He denies any LOC, CP, abd pain, dysuria, sore throat, fevers, cough, or other symptoms. During interview patient complains of muscle cramp in his left thigh which occurs intermittently. ER course was notable for: (1) Lasix 40mg, Hydralazine 10mg, Lisinopril 10mg (2) BP drop to 137/69 (3) Repeat EKG with no significant changes, no ST elevations When I went to the ED to interview the patient, he was diaphoretic and lethargic appearing. Per Dr. Osei, ED resident, the patient was not previously likely. Repeat EKG and labs were drawn at this time. BGM of 136. PAST MEDICAL HISTORY: HTN PAST SURGICAL HISTORY: denies Social History: Smoking: denies Alcohol: denies Drugs: denies Lives at home with his , son, and grandson. 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 Lao speaking only Allergies No Known Allergies Allergy (Verified 11/08/18 21:25) HOME MEDICATIONS: Home Medications Medication Instructions Recorded Furosemide [Lasix -] 40 mg PO DAILY #7 tablet 07/23/18 Lisinopril 10 mg PO DAILY 11/09/18 REVIEW OF SYSTEMS Constitutional: Denies: fever, chills HEENT: Denies: cough, sore throat Cardiovascular: Denies: chest pain, palpitations Respiratory: SOB Denies: cough, wheezing GI: Denies: abd pain, nausea, vomiting, diarrhea, constipation : Denies: dysuria, hematuria MSK: left thigh pain Denies: back pain, joint pain Skin: Denies: rash Neuro: headache, dizziness Denies: numbness, tingling PHYSICAL EXAMINATION Vital Signs - 24 hr 11/08/18 11/08/18 11/09/18 21:25 23:39 00:18 Temperature 98.0 F Pulse Rate 51 L Pulse Rate [ Radial] Respiratory 18 Rate Blood Pressure 175/85 H Blood Pressure 201/94 H [Left Arm] O2 Sat by Pulse 100 100 Oximetry (%) 11/09/18 11/09/18 11/09/18 00:46 01:22 02:13 Temperature Pulse Rate Pulse Rate [ 52 L 52 L 52 L Radial] Respiratory Rate Blood Pressure Blood Pressure 192/92 H 190/80 H 198/92 H [Left Arm] O2 Sat by Pulse Oximetry (%) 11/09/18 11/09/18 11/09/18 03:00 03:16 03:50 Temperature Pulse Rate Pulse Rate [ 54 L 54 L Radial] Respiratory 18 Rate Blood Pressure Blood Pressure 134/77 137/69 [Left Arm] O2 Sat by Pulse 99 100 Oximetry (%) GENERAL: Awake, alert, and fully oriented, in no acute distress. HEAD: Normal with no signs of trauma. EYES: Pupils equal, round and reactive to light, extraocular movements intact EARS, NOSE, THROAT: nares patent, oropharynx clear without exudates. Dry mucous membranes. NECK: Normal range of motion, supple without lymphadenopathy LUNGS: Breath sounds equal, clear to auscultation bilaterally. No wheezes, and no crackles. No accessory muscle use. HEART: Regular rate and rhythm, normal S1 and S2 without murmur, rub or gallop. ABDOMEN: Soft, nontender, not distended, normoactive bowel sounds, no guarding, no rebound, no masses MUSCULOSKELETAL: tenderness to palpation over left thigh. Normal range of motion at all joints. No bony deformities or tenderness. No CVA tenderness. UPPER EXTREMITIES: 2+ pulses, warm, well-perfused. No cyanosis. No clubbing. No peripheral edema. LOWER EXTREMITIES: 2+ pulses, warm, well-perfused. No calf tenderness. No peripheral edema. NEUROLOGICAL: Cranial nerves II-XII intact. 5/5 strength upper and lower extremities. normal muscle tone. PSYCHIATRIC: Cooperative. appropriate mood and affect SKIN: Warm, dry, normal turgor, no rashes or lesions noted, normal capillary refill. Laboratory Results - last 24 hr 11/08/18 11/08/18 11/08/18 21:50 21:50 21:50 WBC 6.3 RBC 4.94 Hgb 15.9 Hct 46.7 MCV 94.6 MCH 32.2 MCHC 34.1 RDW 13.7 Plt Count 147 MPV 8.7 Absolute Neuts (auto) 1.9 Neutrophils % 30.8 L Lymphocytes % 51.6 H Monocytes % 8.2 Eosinophils % 8.8 H Basophils % 0.6 Nucleated RBC % 0 PT with INR INR Sodium 137 Potassium 3.7 Chloride 101 Carbon Dioxide 30 Anion Gap 6 L BUN 19.6 H Creatinine 1.5 H Est GFR (CKD-EPI)AfAm 55.82 Est GFR (CKD-EPI)NonAf 48.16 POC Glucometer Random Glucose 90 Calcium 9.1 Total Bilirubin 0.4 AST 67 H ALT 100 H Alkaline Phosphatase 93 Creatine Kinase Creatine Kinase Index CK-MB (CK-2) Troponin I < 0.02 B-Natriuretic Peptide 182 H Cancelled Total Protein 8.4 H Albumin 4.2 11/09/18 11/09/18 11/09/18 01:55 03:42 03:46 WBC RBC Hgb Hct MCV MCH MCHC RDW Plt Count MPV Absolute Neuts (auto) Neutrophils % Lymphocytes % Monocytes % Eosinophils % Basophils % Nucleated RBC % PT with INR 12.00 INR 1.02 Sodium Potassium Chloride Carbon Dioxide Anion Gap BUN Creatinine Est GFR (CKD-EPI)AfAm Est GFR (CKD-EPI)NonAf POC Glucometer 136 Random Glucose Calcium Total Bilirubin AST ALT Alkaline Phosphatase Creatine Kinase 220 Creatine Kinase Index 1.5 CK-MB (CK-2) 3.5 Troponin I < 0.02 B-Natriuretic Peptide Total Protein Albumin 11/09/18 11/09/18 03:58 03:58 WBC 7.2 RBC 5.11 Hgb 16.4 Hct 48.1 MCV 94.3 MCH 32.1 MCHC 34.0 RDW 13.7 Plt Count 158 MPV 9.0 Absolute Neuts (auto) 2.3 Neutrophils % 32.2 L Lymphocytes % 51.2 H Monocytes % 8.9 Eosinophils % 7.1 H Basophils % 0.6 Nucleated RBC % 0 PT with INR INR Sodium 138 Potassium 3.4 L Chloride 100 Carbon Dioxide 29 Anion Gap 10 BUN 17.9 Creatinine 1.5 H Est GFR (CKD-EPI)AfAm 55.82 Est GFR (CKD-EPI)NonAf 48.16 POC Glucometer Random Glucose 148 H Calcium 9.2 Total Bilirubin 0.6 AST 76 H ALT 103 H Alkaline Phosphatase 94 Creatine Kinase Creatine Kinase Index CK-MB (CK-2) Troponin I B-Natriuretic Peptide Total Protein 8.5 H Albumin 4.2 Imaging: CXR negative for acute pathology. CT head negative for acute pathology. ASSESSMENT/PLAN: 67 y/o/m with PMHx of HTN who came to the ED after experiencing dizziness secondary to HTN. He was seen by his PCP yesterday and was told to increase his lisinopril dose from 5mg to 10mg. 1)Hypertensive Emergency - patient with BP close to 200/100 in the ED, acutely corrected to 137/69 -Given 40mg of Lasix, 10mg of Hydralazine, and 10mg of Lisinopril in the ED -Continue Lisinopril 10mg -Monitor BP -Check UA 2)Hypokalemia - K+ of 3.4 on repeat labs -Replete with KDUR 40mg PO -Monitor CMP 3)Elevated LFTs -oral hydration -monitor CMP 4)Muscle cramp of left thigh -Tylenol for pain control -reassess need for further management 5)Prophylaxis -Heparin 6)Disposition -Admitted to tele Visit type - Emergency Visit Emergency Visit: Yes ED Registration Date: 11/09/18 Care time: The patient presented to the Emergency Department on the above date and was hospitalized for further evaluation of their emergent condition. - New Patient This patient is new to me today: Yes Date on this admission: 11/09/18 - Critical Care Critical Care patient: No ATTENDING PHYSICIAN STATEMENT I saw and evaluated the patient. I reviewed the resident's note and discussed the case with the resident. I agree with the resident's findings and plan as documented. SUBJECTIVE: OBJECTIVE: ASSESSMENT AND PLAN:
[2018-11-09 06:30] VITALS: BMI 26.2
[2018-11-09] MEDS: HEPARIN NA (PORCINE) 5,000 UNITS/ML 1ML VIAL SQ SCH ×2 (07:26→14:24)
[2018-11-09] MEDS ORDERED: FLU VACCINE QUAD 60 MCG/0.5 ML (MDV 19-20) IM ONE (10:00)
[2018-11-09] MEDS ORDERED: LISINOPRIL 10 MG TABLET (FP) PO SCH (10:00)
[2018-11-09] MEDS ORDERED: traMADol HCL 50 MG TABLET PO ONE (11:54)
--- NOTE | 2018-11-09 13:43 | ECHO ---
Name: VENITA BLACK Exam:Adult Echocardiogram Study Date: 11/09/2018 12:20 PM Age: 67 yrs Reason For Study: EVALUATE LVF Height: 69 in Weight: 177 lb BSA: 2.0 m2 Left Ventricle There is mild concentric left ventricular hypertrophy. Left ventricular systolic function is normal. Ejection Fraction = 55-60%. The transmitral spectral Doppler flow pattern is suggestive of impaired LV relaxat ion. Right Ventricle The right ventricle is normal in size and function. Atria The left atrium is borderline dilated. Right atrial size is normal. Mitral Valve The mitral valve is normal in structure and function. There is no mitral valve stenosis. There is mil d mitral regurgitation. Tricuspid Valve The tricuspid valve is normal in structure and function. There is mild tricuspid regurgitation. Right ventricular systolic pressure is normal. Aortic Valve The aortic valve is trileaflet. No hemodynamically significant valvular aortic stenosis. No aortic regurgitation is present. Pulmonic Valve The pulmonic valve is not well seen, but is grossly normal. There is no pulmonic valvular stenosis. M ild pulmonic valvular regurgitation. Great Vessels The aortic root is normal size. Pericardium/Pleura There is no pericardial effusion. Interpretation Summary There is mild concentric left ventricular hypertrophy. Left ventricular systolic function is normal. Ejection Fraction = 55-60%. The transmitral spectral Doppler flow pattern is suggestive of impaired LV relaxation. The right ventricle is normal in size and function. There is mild mitral regurgitation. There is mild tricuspid regurgitation. There is no pericardial effusion. MD Armendariz *Moi 11/09/2018 01:43 PM
--- NOTE | 2018-11-09 14:05 | EKG ---
Test Reason : Blood Pressure : / mmHG Vent. Rate : 051 BPM Atrial Rate : 051 BPM P-R Int : 300 ms QRS Dur : 082 ms QT Int : 490 ms P-R-T Axes : 063 -23 005 degrees QTc Int : 451 ms SINUS BRADYCARDIA WITH 1ST DEGREE A-V BLOCK OTHERWISE NORMAL ECG WHEN COMPARED WITH ECG OF 08-NOV-2018 21:45, CRITERIA FOR SEPTAL INFARCT ARE NO LONGER PRESENT Confirmed by AIXA PRAKASH MD ([id number]) on 11/09/2018 2:05:15 PM Referred By: Confirmed By:AIXA PRAKASH MD
--- NOTE | 2018-11-09 14:07 | EKG ---
Test Reason : Blood Pressure : / mmHG Vent. Rate : 050 BPM Atrial Rate : 050 BPM P-R Int : 320 ms QRS Dur : 082 ms QT Int : 470 ms P-R-T Axes : 040 -29 015 degrees QTc Int : 428 ms SINUS BRADYCARDIA WITH 1ST DEGREE A-V BLOCK SEPTAL INFARCT (CITED ON OR BEFORE 10-JAN-2018) ABNORMAL ECG WHEN COMPARED WITH ECG OF 29-MAR-2018 21:52, VENT. RATE HAS DECREASED BY 27 BPM Confirmed by AIXA PRAKASH MD ([id number]) on 11/09/2018 2:07:13 PM Referred By: Confirmed By:AIXA PRAKASH MD
--- NOTE | 2018-11-09 14:59 | PN ---
Teaching Attending Note Name of Resident: Mary Bui ATTENDING PHYSICIAN STATEMENT I saw and evaluated the patient. I reviewed the resident's note and discussed the case with the resident. I agree with the resident's findings and plan as documented. SUBJECTIVE: Complains of headache. No visual disturbance, limb numbness/weakness /tingling. OBJECTIVE: Afebrile, Hemodynamically Stable. Last Vital Signs Temp Pulse Resp BP Pulse Ox 98.2 F 51 L 20 143/75 99 11/09/18 10:00 11/09/18 10:00 11/09/18 10:11/09/18 10:11/09/18 08:07 HEENT - Atraumatic, Normocephalic. Heart - S1, S2, RRR Lungs - clear to auscultation Abdomen - Soft, non-tender. Bowel Sounds normal. Extremities- no edema, no calf tenderness Neuro - AAO x 3. Tone/Power normal all 4 extremities. Laboratory Results - last 24 hr 11/08/18 11/08/18 11/08/18 21:50 21:50 21:50 WBC 6.3 RBC 4.94 Hgb 15.9 Hct 46.7 MCV 94.6 MCH 32.2 MCHC 34.1 RDW 13.7 Plt Count 147 MPV 8.7 Absolute Neuts (auto) 1.9 Neutrophils % 30.8 L Lymphocytes % 51.6 H Monocytes % 8.2 Eosinophils % 8.8 H Basophils % 0.6 Nucleated RBC % 0 PT with INR INR Sodium 137 Potassium 3.7 Chloride 101 Carbon Dioxide 30 Anion Gap 6 L BUN 19.6 H Creatinine 1.5 H Est GFR (CKD-EPI)AfAm 55.82 Est GFR (CKD-EPI)NonAf 48.16 POC Glucometer Random Glucose 90 Calcium 9.1 Total Bilirubin 0.4 AST 67 H ALT 100 H Alkaline Phosphatase 93 Creatine Kinase Creatine Kinase Index CK-MB (CK-2) Troponin I < 0.02 B-Natriuretic Peptide 182 H Cancelled Total Protein 8.4 H Albumin 4.2 11/09/18 11/09/18 11/09/18 01:55 03:42 03:46 WBC RBC Hgb Hct MCV MCH MCHC RDW Plt Count MPV Absolute Neuts (auto) Neutrophils % Lymphocytes % Monocytes % Eosinophils % Basophils % Nucleated RBC % PT with INR 12.00 INR 1.02 Sodium Potassium Chloride Carbon Dioxide Anion Gap BUN Creatinine Est GFR (CKD-EPI)AfAm Est GFR (CKD-EPI)NonAf POC Glucometer 136 Random Glucose Calcium Total Bilirubin AST ALT Alkaline Phosphatase Creatine Kinase 220 Creatine Kinase Index 1.5 CK-MB (CK-2) 3.5 Troponin I < 0.02 B-Natriuretic Peptide Total Protein Albumin 11/09/18 11/09/18 03:58 03:58 WBC 7.2 RBC 5.11 Hgb 16.4 Hct 48.1 MCV 94.3 MCH 32.1 MCHC 34.0 RDW 13.7 Plt Count 158 MPV 9.0 Absolute Neuts (auto) 2.3 Neutrophils % 32.2 L Lymphocytes % 51.2 H Monocytes % 8.9 Eosinophils % 7.1 H Basophils % 0.6 Nucleated RBC % 0 PT with INR INR Sodium 138 Potassium 3.4 L Chloride 100 Carbon Dioxide 29 Anion Gap 10 BUN 17.9 Creatinine 1.5 H Est GFR (CKD-EPI)AfAm 55.82 Est GFR (CKD-EPI)NonAf 48.16 POC Glucometer Random Glucose 148 H Calcium 9.2 Total Bilirubin 0.6 AST 76 H ALT 103 H Alkaline Phosphatase 94 Creatine Kinase Creatine Kinase Index CK-MB (CK-2) Troponin I B-Natriuretic Peptide Total Protein 8.5 H Albumin 4.2 Current Medications Generic Name Dose Route Start Last Admin Trade Name Freq PRN Reason Stop Dose Admin Heparin Sodium (Porcine) 5,000 unit 11/09/18 06:00 11/09/18 14:24 Heparin - SQ 5,000 unit TID [facility] Administration Lisinopril 10 mg 11/09/18 10:00 Prinivil PO DAILY [facility] Home Medications Medication Instructions Recorded Furosemide [Lasix -] 40 mg PO DAILY #7 tablet 07/23/18 Atenolol [Tenormin] 50 mg PO DAILY 11/09/18 Lisinopril 10 mg PO DAILY 11/09/18 ASSESSMENT/PLAN: 67 year old male with history of HTN, presented to ED with complaints of dizziness/lightheadedness and dyspnea, found to have SBP > 200. 1. Acute Diastolic CHF due to Hypertensive Urgency, with lightheadedness and dyspnea CXR - no acute findings CT Head - no acute intracranial findings. EKG - Sinus Bradycardia, no acute changes. Echo - impaired LV relaxation, EF 60% Responded to IV Hydralazine/Lasix. Resume home medications with increased Lisinopril dose to 10mg) and monitor BP. 2. CKD 3 - appears stable. Will monitor. 2. CKD? - Has risk factor for CKD. Will get kidney sonogram and encourage liberal oral fluid intake. Will avoid nephrotoxic agents such as NSAIDS, aminoglycosides, contrast dyes and certain Alternative medicine products. 3. Elevated LFTs, etiology unclear. Last alcoholic beverage 2 years ago. Hepatitis screen and Abdomen US ordered. 4. Hypokalemia - repleted. DVT Px - Heparin SQ Stable for discharge pending US Abdomen
[2018-11-09 15:28] VITALS: BP 158/88; PULSE 57; TEMP 98.6
--- NOTE | 2018-11-09 17:09 | PN ---
Physical Exam: SUBJECTIVE: Patient seen and examined. Endorses frontal headache radiating to back of head. Denies dizziness, chest pain, swelling in legs OBJECTIVE: Vital Signs Period Temp Pulse Resp BP Sys/Jennings Pulse Ox Last 24 Hr 98.0 F-98.6 F 51-57 18-20 134-201/69-94 98-100 GENERAL: awake, NAD HEAD: NC/AT, mild temporal wasting EYES: extraocular movements intact, sclera anicteric, conjunctiva clear NECK: Trachea midline, full range of motion, supple. LUNGS: Breath sounds equal, clear to auscultation bilaterally, no wheezes, no crackles, no accessory muscle use. HEART: Regular rate and rhythm, S1, S2 without murmur, rub or gallop. ABDOMEN: Soft, nontender, nondistended, no guarding, no rebound, no masses. EXTREMITIES: 2+ pulses, warm, well-perfused, no edema. NEUROLOGICAL: normal speech SKIN: Warm, dry, normal turgor, no rashes or lesions noted Laboratory Results - last 24 hr 11/08/18 11/08/18 11/08/18 21:50 21:50 21:50 WBC 6.3 RBC 4.94 Hgb 15.9 Hct 46.7 MCV 94.6 MCH 32.2 MCHC 34.1 RDW 13.7 Plt Count 147 MPV 8.7 Absolute Neuts (auto) 1.9 Neutrophils % 30.8 L Lymphocytes % 51.6 H Monocytes % 8.2 Eosinophils % 8.8 H Basophils % 0.6 Nucleated RBC % 0 PT with INR INR Sodium 137 Potassium 3.7 Chloride 101 Carbon Dioxide 30 Anion Gap 6 L BUN 19.6 H Creatinine 1.5 H Est GFR (CKD-EPI)AfAm 55.82 Est GFR (CKD-EPI)NonAf 48.16 POC Glucometer Random Glucose 90 Calcium 9.1 Total Bilirubin 0.4 AST 67 H ALT 100 H Alkaline Phosphatase 93 Creatine Kinase Creatine Kinase Index CK-MB (CK-2) Troponin I < 0.02 B-Natriuretic Peptide 182 H Cancelled Total Protein 8.4 H Albumin 4.2 11/09/18 11/09/18 11/09/18 01:55 03:42 03:46 WBC RBC Hgb Hct MCV MCH MCHC RDW Plt Count MPV Absolute Neuts (auto) Neutrophils % Lymphocytes % Monocytes % Eosinophils % Basophils % Nucleated RBC % PT with INR 12.00 INR 1.02 Sodium Potassium Chloride Carbon Dioxide Anion Gap BUN Creatinine Est GFR (CKD-EPI)AfAm Est GFR (CKD-EPI)NonAf POC Glucometer 136 Random Glucose Calcium Total Bilirubin AST ALT Alkaline Phosphatase Creatine Kinase 220 Creatine Kinase Index 1.5 CK-MB (CK-2) 3.5 Troponin I < 0.02 B-Natriuretic Peptide Total Protein Albumin 11/09/18 11/09/18 03:58 03:58 WBC 7.2 RBC 5.11 Hgb 16.4 Hct 48.1 MCV 94.3 MCH 32.1 MCHC 34.0 RDW 13.7 Plt Count 158 MPV 9.0 Absolute Neuts (auto) 2.3 Neutrophils % 32.2 L Lymphocytes % 51.2 H Monocytes % 8.9 Eosinophils % 7.1 H Basophils % 0.6 Nucleated RBC % 0 PT with INR INR Sodium 138 Potassium 3.4 L Chloride 100 Carbon Dioxide 29 Anion Gap 10 BUN 17.9 Creatinine 1.5 H Est GFR (CKD-EPI)AfAm 55.82 Est GFR (CKD-EPI)NonAf 48.16 POC Glucometer Random Glucose 148 H Calcium 9.2 Total Bilirubin 0.6 AST 76 H ALT 103 H Alkaline Phosphatase 94 Creatine Kinase Creatine Kinase Index CK-MB (CK-2) Troponin I B-Natriuretic Peptide Total Protein 8.5 H Albumin 4.2 Active Medications Generic Name Dose Route Start Last Admin Trade Name Freq PRN Reason Stop Dose Admin Heparin Sodium (Porcine) 5,000 unit 11/09/18 06:00 11/09/18 14:24 Heparin - SQ 5,000 unit TID [facility] Administration Lisinopril 10 mg 11/09/18 10:00 Prinivil PO DAILY [facility] ASSESSMENT/PLAN: 67 y/o/m with PMHx of HTN who came to the ED after experiencing dizziness secondary to HTN. #Hypertensive Emergency - BP up to 200/100 in the ED, acutely corrected to 137/ 69 >UA neg -Given 40mg of Lasix, 10mg of Hydralazine, and 10mg of Lisinopril in the ED -Continue Lisinopril 10mg -Monitor BP -- improved to SBP #Frontal Headache -- resolved -s/p tramadol #Hypokalemia -- repleted -Repleted with KDUR 40mg PO -Monitor CMP #Elevated LFTs >U/S RUQ: fatty liver -oral hydration -monitor CMP #Muscle cramp of left thigh -- resolved -Tylenol for pain control -reassess need for further management #Prophylaxis -Heparin #Disposition -Admitted to tele Visit type - Emergency Visit Emergency Visit: No - New Patient This patient is new to me today: No - Critical Care Critical Care patient: No ATTENDING PHYSICIAN STATEMENT I saw and evaluated the patient. I reviewed the resident's note and discussed the case with the resident. I agree with the resident's findings and plan as documented. SUBJECTIVE: OBJECTIVE: ASSESSMENT AND PLAN:
[2018-11-09 19:46] LABS: EPI CELLS 0.6 /HPF (0-5/HPF); HYALINE CASTS 3 /lpf (0-8); PH,URINE 5.5 (5.0-8.0); URINE APPEARANCE CLEAR; URINE BACTERIA 0.3 /hpf (NEGATIVE); URINE BILIRUBIN NEGATIVE (NEGATIVE); URINE COLOR YELLOW; URINE GLUCOSE (UA) NEGATIVE (NEGATIVE); URINE KETONE TRACE (NEGATIVE); URINE LEUK ESTERASE NEGATIVE (NEGATIVE); URINE NITRITE NEGATIVE (NEGATIVE); URINE PROTEIN 2+ (NEGATIVE); URINE RBC 1 /hpf (0-4); URINE WBC 1 /hpf (0-5)
== END 2018-11-09 21:32 | disposition home or self-care (01) | DRG 199 ==
LOC: JER 21:16 → JERBED 11-09 02:15 → J4W 11-09 04:32
PROVIDERS: ADMIT Internal Medicine
DX: I16.0 Hypertensive urgency (principal); E87.6 Hypokalemia; R42 Dizziness and giddiness; R51 Headache; I13.0 Hypertensive heart and chronic kidney disease with heart failure and stage 1 through stage 4 chronic kidney disease, or unspecified chronic kidney disease; I50.33 Acute on chronic diastolic (congestive) heart failure; N18.3 Chronic kidney disease, stage 3 (moderate); R00.1 Bradycardia, unspecified; R25.2 Cramp and spasm; R94.5 Abnormal results of liver function studies; K76.0 Fatty (change of) liver, not elsewhere classified
CPT/HCPCS: 36415; 70450-TC; 71046-TC-FY; 76705-TC; 80053; 80074; 81003; 82550; 82553; 82962; 83880; 84484; 85025; 85610; 93005; 93010; 93306-TC; 99285-25; G0008; J0131; J1644; Q2036

== ENCOUNTER 2018-11-16 10:54 | Observation (INO) | payer OTHER ==
--- NOTE | 2018-11-16 11:11 | PDOC ---
History of Present Illness - General Chief Complaint: Lightheaded Stated Complaint: DIZZY/ PALPITATIONS Time Seen by Provider: 11/16/18 11:10 History Source: Patient Exam Limitations: Language Barrier - History of Present Illness Initial Comments: Lorie Jane is a 67 yo M w a pmh of HTN who presents to the ER with palpitations, dizziness, lightheadedness, and generalized weakness and a low heart rate. The patient's daughter is at bedside who helps with the history and states all of his symptoms began last night. Patient does not have any chest pain. He was seen here in this ER last week where a heart workup was performed and the daughter states it was mainly negative. He also had a head CT which was negative. PCP/Supervisor Frame Sample And Pattern: Kemar Rosario PSH: None reported Allergies: NKA, NKDA Social Hx: Denies smoking, drinking, or other substance usage. Past History - Past Medical History Allergies/Adverse Reactions: Allergies Allergy/AdvReac Type Severity Reaction Status Date / Time No Known Allergies Allergy Verified 11/16/18 11:02 Home Medications: Ambulatory Orders Atenolol [Tenormin -] 100 mg PO DAILY 11/09/18 Lisinopril 10 mg PO DAILY 11/09/18 Anemia: No Asthma: No Cancer: No Cardiac Disorders: No CVA: No COPD: No CHF: No Dementia: No Diabetes: No GI Disorders: Yes Disorders: No HTN: Yes Hypercholesterolemia: No Liver Disease: No Seizures: No Thyroid Disease: No - Surgical History Abdominal Surgery: No Appendectomy: No Cardiac Surgery: No Cholecystectomy: No Lung Surgery: No Neurologic Surgery: No Orthopedic Surgery: No - Immunization History Immunization Up to Date: Yes - Psycho Social/Smoking Cessation Hx Smoking History: Never smoked Have you smoked in the past 12 months: No Hx Alcohol Use: No Drug/Substance Use Hx: No Substance Use Type: None Hx Substance Use Treatment: No Review of Systems - Review of Systems Able to Perform ROS?: Yes Comments:: CONSTITUTIONAL: Absent: fever, no chills, no fatigue EYES: Absent: visual changes ENT: Absent: ear pain, no sore throat CARDIOVASCULAR: Present: Palpitations Absent: chest pain RESPIRATORY: Absent: cough, no SOB GI: Absent: abdominal pain, no nausea, no vomiting, no constipation, no diarrhea GENITOURINARY: Absent: dysuria, no frequency, no hematuria MUSKULOSKELETAL: Absent: back pain, no arthralgia, no myalgia SKIN: Absent: rash NEURO: Absent: headache *Physical Exam - Vital Signs Last Vital Signs Temp Pulse Resp BP Pulse Ox 98 F 48 L 16 153/79 99 11/16/18 11:03 11/16/18 11:03 11/16/18 11:03 11/16/18 11:03 11/16/18 11:03 - Physical Exam Comments: GENERAL: Well-appearing, well-nourished. No apparent distress. HEENT: Normocephalic, atraumatic. PERRL, EOM intact. CARDIOVASCULAR: Bradycardic rate. Normal S1, S2. Regular rhythm. PULMONARY: No evidence of respiratory distress. Lungs clear to auscultation bilaterally. No wheezing, rales or rhonchi. ABDOMEN: Soft, non-distended, non-tender. EXTREMITIES: Normal ROM in all four extremities. No gross deformities. SKIN: Warm, dry. No rash NEUROLOGICAL: Alert, awake, appropriate. Cranial nerves 2-12 intact. No deficits to light touch in face, upper extremities and lower extremities. No motor deficits in the in face, upper extremities and lower extremities. Normoreflexic in the upper and lower extremities. Normal speech. Toes are down-going bilaterally. Gait is normal without ataxia. Procedures - Bedside Ultrasound Bedside Ultrasound: Cardiac Remarks: Bedisde POCUS Cardiac ECHO: There is no wall motion abnormalities. Overall good squeeze. No pericardial effusion. Impression: well apepearing heart without focal wall motion abnormalities. Heart Score/ECG Review - History History: Slightly suspicious - Electrocardiogram EKG: Normal - Age Age: >/= 65 - Risk Factors Risk Factors Heart Score: Yes Hx Hypertension Based on the list above the patient has:: 1-2 risk factors - Troponin Troponin: </= normal limit - Score Heart Score - Total: 3 - ECG Intrepretation Rhythm: Regular Rhythm - Union Union: Normal - P and OH Prolonged OH Interval: 1st Degree Block(>20mils) Prominent R with upright T in V1 (true posterior FL): No Delta Wave(s) Present: No WPW: No - QRS Poor R Wave Progression: No Q Wave Present: Yes Comment:: Q waves in V3 Sinus Bradycardia w/ 1st degree AV block Anteroseptal infarct, age undetermined - ST and T Early Repolarization: No Non Specific ST-T Wave changes: No Flattened T Waves: Yes Prolonged Q-T Interval: No Comment:: TWI in lead 3 - ECG Impressions Normal ECG: No Non-specific ST Elevation: No Ischemic Changes: No Bradycardia: Yes Heart Block: 1st Degree Block(>20mils) Torsades kim Pointes: No WPW: No ED Treatment Course - LABORATORY CBC & Chemistry Diagram: 11/16/18 11:22 11/16/18 11:22 - RADIOLOGY Radiograph Interpretation: CXR: Medical Decision Making - Medical Decision Making Lorie Jane is a 67 yo M w a pmh of HTN who presents to the ER with palpitations, dizziness, lightheadedness, and generalized weakness and a low heart rate. The patient's daughter is at bedside who helps with the history and states all of his symptoms began last night. Patient does not have any chest pain. He was seen here in this ER last week where a heart workup was performed and the daughter states it was mainly negative. He also had a head CT which was negative. Vital Signs Temp Pulse Resp BP Pulse Ox 98 F 48 L 16 153/79 99 11/16/18 11:03 11/16/18 11:03 11/16/18 11:03 11/16/18 11:03 11/16/18 11:03 DDx IBNLT: Arrhythmia, ACS/FL, electrolyte/metabolic disturbance, PNA, pneumothorax Plan: Labs, CXR, EKG, Bedside Echo, re-assess. EKG - documented in EKG section of note CXR: Chest: Chest pain 2 views of the chest reveal clear lungs, prominent knob, normal tamiko and normal heart, The angles are sharp. The bones and soft tissues are intact. Acute process is not seen. Since 11/08/2018 there is no change of an adverse nature. Impression: No acute chest pathology. Labs: Unremarkable US: Unremarkable, grossly normal echo. Re-assessment: Patient still lightheaded, dizzy, and endorses frequent palpitations. I suspect this might be due to the patient taking too much of his atenolol. Cardiac Consult: I spoke with Dr. Prater who is the chief sustainability officer of the patient's daughter. He recommends bringing the patient into Tele Obs and Dr. Drake will assess the patient on afternoon rounds. Disposition: Admit tele obs chest pain + bradycardia Discharge - Discharge Information Problems reviewed: Yes Clinical Impression/Diagnosis: Bradycardia, Lightheadedness Chest pain Qualifiers: Chest pain type: unspecified Qualified Code(s): R07.9 - Chest pain, unspecified Condition: Stable - Admission Yes - Follow up/Referral - Patient Discharge Instructions - Post Discharge Activity
[2018-11-16 11:39] LABS: BASO % 0.9 % (0-2.0); EOS % 8.9 % (0-4.5); HEMATOCRIT 44.9 % (35.4-49); HEMOGLOBIN 15.6 GM/dL (11.7-16.9); LYMPH % 50.5 % (8-40); MCHC 34.8 g/dl (32.0-35.9); MEAN CELL VOLUME 94.7 fl (80-96); MEAN PLT VOLUME 8.8 fl (7.5-11.1); MONO % 11.1 % (3.8-10.2); NEUT % 28.6 % (42.8-82.8); PLATELET COUNT 149 K/MM3 (134-434); RBC 4.74 M/mm3 (4.00-5.60); RDW 13.5 % (11.9-15.9); WHITE BLOOD COUNT 6.2 K/mm3 (4.0-10.0)
[2018-11-16 11:57] LABS: INR 1.03 (0.83-1.09); PROTHROMBIN TIME (PATIENT) 12.2 SEC (9.7-13.0)
[2018-11-16 12:22] LABS: ALBUMIN 3.9 g/dl (3.4-5.0); BILIRUBIN,TOTAL 0.5 mg/dL (0.2-1); BLOOD UREA NITROGEN 17.6 mg/dL (7-18); CALCIUM 9.2 mg/dL (8.5-10.1); CREATININE 1.3 mg/dL (0.55-1.3); MAGNESIUM 2.2 mg/dL (1.8-2.4); POTASSIUM 3.9 mmol/L (3.5-5.1); TOT PROT 8.1 g/dl (6.4-8.2)
--- NOTE | 2018-11-16 12:27 | PDOC ---
Attending Attestation - Resident Resident Name: Dale Shannon - ED Attending Attestation I have performed the following: I have examined & evaluated the patient, The case was reviewed & discussed with the resident, I agree w/resident's findings & plan, Exceptions are as noted - HPI HPI: 11/16/18 12:29 Mr Connor Jane is a 67 y/o M with PMHx of HTN came into the ER for dizziness. Pt s/p recent admission for hypertensive emergency He is currently compliant with his medications - Atenolol 100mg, Lasix, Lisinopril Pt notes intermittent dizziness, no vertigo No associated headache Symptoms not related to exertion or laying flat Pt daughter is concerned that he has not seen a photography manager He has not had a stress test PAST MEDICAL HISTORY: HTN PAST SURGICAL HISTORY: denies Social History: Smoking: denies Alcohol: denies Drugs: denies - Physicial Exam PE: 11/16/18 12:33 GENERAL: The patient is in no acute distress, weak appearing. HEAD: Normal EYES: PERRLA, EOMI, sclera anicteric, conjunctiva clear. ENT: Ears normal, nares patent, oropharynx clear without exudates. Moist mucous membranes. NECK: Normal range of motion, supple LUNGS: Breath sounds equal, clear to auscultation bilaterally. No wheezes, and no crackles. HEART:Regular rate and rhythm, normal S1 and S2 without murmur, rub or gallop. ABDOMEN: Soft, nontender, normoactive bowel sounds. No guarding, no rebound. EXTREMITIES: Normal range of motion, no lower extremity edema. NEUROLOGICAL: Cranial nerves II through XII grossly intact. Normal speech. No focal neurological deficits. SKIN: Warm, Dry, normal turgor, no rashes or lesions noted. - Medical Decision Making 11/16/18 12:34 Pt returns to the ER with lightheadedness, bradycardia NO CHEST PAIN Will do labs Pt daughter requesting that I speak with Dr Prater EKG - NSR rate of 48 bpm, no st elevation or depression, intervals abn - pr: prolongation 276ms (1st degree av block), QRS nml, QTc nml 11/16/18 13:54 Laboratory Tests 11/16/18 11/16/18 11/16/18 11:22 11:22 11:22 WBC 6.2 Hgb 15.6 Hct 44.9 Plt Count 149 INR Sodium 138 Potassium 3.9 Chloride 102 Carbon Dioxide 31 BUN 17.6 Creatinine 1.3 Random Glucose 90 Creatine Kinase 96 Troponin I < 0.02 11/16/18 11:22 WBC Hgb Hct Plt Count INR 1.03 Sodium Potassium Chloride Carbon Dioxide BUN Creatinine Random Glucose Creatine Kinase Troponin I Case reviewed with Dr Prater Recommends admission Recommends follow up with [facility]
[2018-11-16 14:39] VITALS: BMI 25.1
--- NOTE | 2018-11-16 16:16 | CON.CARD ---
Consult Consult Specialty:: Cardiology Referred by:: Medicine Reason for Consultation:: bradycardia - History of Present Illness Chief Complaint: dizziness, headache History of Present Illness: 67M h/o HTN p/w palps, dizziness, lightheadedness and weakness. Started night prior to admission, has been feeling a little better. Recently was admitted for hypertensive urgency. no chest pain, dyspnea, syncope. Feels a little better now but still feels dizzy lying in bed and complains of headache. 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 History of Recent Travel: Yes (was in [place] 1 month prior) Home Medications - Allergies Allergies/Adverse Reactions: Allergies Allergy/AdvReac Type Severity Reaction Status Date / Time No Known Allergies Allergy Verified 11/16/18 11:02 - Home Medications Home Medications: Ambulatory Orders Atenolol [Tenormin -] 100 mg PO DAILY 11/09/18 Lisinopril 10 mg PO DAILY 11/09/18 Family Medical History Family History: Unremarkable Review of Systems - Review of Systems Constitutional: reports: No Symptoms Eyes: reports: No Symptoms HENT: reports: No Symptoms Neck: reports: No Symptoms Cardiovascular: reports: No Symptoms Respiratory: reports: No Symptoms Gastrointestinal: reports: No Symptoms Genitourinary: reports: No Symptoms Musculoskeletal: reports: No Symptoms Integumentary: reports: No Symptoms Neurological: reports: Headache Endocrine: reports: No Symptoms Hematology/Lymphatic: reports: No Symptoms Psychiatric: reports: No Symptoms Vital Signs: Vital Signs Temperature 98.3 F 11/16/18 15:00 Pulse Rate 51 L 11/16/18 15:00 Respiratory Rate 20 11/16/18 15:00 Blood Pressure 161/82 11/16/18 15:00 O2 Sat by Pulse Oximetry (%) 98 11/16/18 14:07 Constitutional: Yes: No Distress, Calm Eyes: Yes: Conjunctiva Clear, EOM Intact HENT: Yes: Atraumatic, Normocephalic Neck: Yes: Supple, Trachea Midline Respiratory: Yes: Regular, CTA Bilaterally Gastrointestinal: Yes: Normal Bowel Sounds, Soft Cardiovascular: Yes: Bradycardia JVD: No Heart Sounds: Yes: S1, S2 Extremities: No: Cold Edema: No Integumentary: No: Jaundice Neurological: Yes: Alert, Oriented Psychiatric: No: Agitated - Other Data Labs, Other Data: CBC, BMP 11/16/18 11:22 11/16/18 11:22 INR, PTT INR 1.03 (0.83-1.09) 11/16/18 11:22 Troponin, BNP 11/16/18 11:22 Troponin I < 0.02 B-Natriuretic Peptide 85.0 Troponin, BNP 11/16/18 11:22 Troponin I < 0.02 B-Natriuretic Peptide 85.0 Assessment/Plan echo 10/2018 mild conc LVH, nl LV function, RV nl, impaired LV relaxation, mild MR, mild TR EKG: sinus radha, first degree AV block, no ischemic changes CXR: no acute process tele: sinus radha bradycardia, dizziness - has been stable and noted at least since prior admission - echo unremarkable - less likely contributing to dizziness - monitor on tele - sinus radha - holding atenolol HTN - holding atenolol as above - cont lisinopril - monitor BP, may need to uptitrate dose vs add additional agent if high BPs
[2018-11-16] MEDS ORDERED: MECLIZINE HCL 12.5 MG TABLET PO PRN (17:02)
--- NOTE | 2018-11-16 17:05 | PN ---
Teaching Attending Note Name of Resident: Flo Fernandes ATTENDING PHYSICIAN STATEMENT I saw and evaluated the patient. I reviewed the resident's note and discussed the case with the resident. I agree with the resident's findings and plan as documented. SUBJECTIVE: This is a 67 year old man with a history of HTN who comes to the ED complaining of dizziness and weakness since yesterday. He had been here 11/08- for dizziness and weakness and was diagnosed with acute diastolic heart failure secondary to hypertensive urgency. He was treated with hydralazine, Lasix with improvement. His dose of lisinopril was increased and he was continued on atenolol. EKG at that time showed sinus bradycardia with first degree AVB. OBJECTIVE: Vital Signs Period Temp Pulse Resp BP Sys/Jennings Pulse Ox Last 24 Hr 98 F-98.3 F 48-51 16-20 147-161/78-82 98-99 HEART: S1S2, bradycardic LUNGS: Clear ABDOMEN: Soft, non-tender, non-distended, normal BS EXTREMITIES: Trace pedal edema Laboratory Tests 11/16/18 11/16/18 11/16/18 11:22 11:22 11:22 WBC 6.2 RBC 4.74 Hgb 15.6 Hct 44.9 MCV 94.7 MCH 33.0 MCHC 34.8 RDW 13.5 Plt Count 149 MPV 8.8 Absolute Neuts (auto) 1.8 Neutrophils % 28.6 L Lymphocytes % 50.5 H Monocytes % 11.1 H Eosinophils % 8.9 H Basophils % 0.9 Nucleated RBC % 0 PT with INR INR Sodium 138 Potassium 3.9 Chloride 102 Carbon Dioxide 31 Anion Gap 5 L BUN 17.6 Creatinine 1.3 Est GFR (CKD-EPI)AfAm 66.36 Est GFR (CKD-EPI)NonAf 57.26 Random Glucose 90 Calcium 9.2 Magnesium 2.2 Total Bilirubin 0.5 AST 53 H ALT 86 H Alkaline Phosphatase 84 Creatine Kinase 96 Troponin I < 0.02 B-Natriuretic Peptide 85.0 Total Protein 8.1 Albumin 3.9 11/16/18 11:22 WBC RBC Hgb Hct MCV MCH MCHC RDW Plt Count MPV Absolute Neuts (auto) Neutrophils % Lymphocytes % Monocytes % Eosinophils % Basophils % Nucleated RBC % PT with INR 12.20 INR 1.03 Sodium Potassium Chloride Carbon Dioxide Anion Gap BUN Creatinine Est GFR (CKD-EPI)AfAm Est GFR (CKD-EPI)NonAf Random Glucose Calcium Magnesium Total Bilirubin AST ALT Alkaline Phosphatase Creatine Kinase Troponin I B-Natriuretic Peptide Total Protein Albumin ASSESSMENT AND PLAN: This is a 67 year old man with a history of HTN who presented to the ED with dizziness and weakness. 1. Symptomatic bradycardia with 1st degree AVB - Monitor on telemetry - Hold atenolol - Echocardiogram 11/09 showed mild concentric LVH, EF 55-60%, impaired LV relaxation, normal RV, mild MR, mild TR - Cardiology evaluation 2. HTN - Continue lisinopril - Hold atenolol secondary to bradycardia/1st degree AVB
--- NOTE | 2018-11-16 17:09 | HP ---
CHIEF COMPLAINT: Dizziness, weakness PCP: Dr. Rosario HISTORY OF PRESENT ILLNESS: 67yo Congolese-speaking M with h/o of HTN who presents today with dizziness, lightheadedness, and weakness. Pt reports this started intermittently around , however was persistent this morning. He sought medical help because he has never felt this way before. Pt reports he sees Dr. Rosario for both his PCP and cardiology needs. He was admitted one week prior due to hypertensive urgency and shortness of breath. In that prior admission, pt was controlled with IV medications and discharged on Lisinopril 10mg qdaily and his home Atenolol 100mg qdaily. Pt reports that he did not take the changed medications until despite instructions to start right away. 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 No Known Allergies Allergy (Verified 11/16/18 11:02) HOME MEDICATIONS: Home Medications Medication Instructions Recorded Atenolol [Tenormin -] 100 mg PO DAILY 11/09/18 Lisinopril 10 mg PO DAILY 11/09/18 REVIEW OF SYSTEMS As per HPI PHYSICAL EXAMINATION Vital Signs - 24 hr 11/16/18 11/16/18 11/16/18 11:03 14:07 14:38 Temperature 98 F Pulse Rate 48 L 50 L Pulse Rate [ 48 L Apical] Respiratory 16 18 Rate Blood Pressure 153/79 Blood Pressure 147/78 [Right Arm] O2 Sat by Pulse 99 98 Oximetry (%) 11/16/18 15:00 Temperature 98.3 F Pulse Rate 51 L Pulse Rate [ Apical] Respiratory 20 Rate Blood Pressure 161/82 Blood Pressure [Right Arm] O2 Sat by Pulse Oximetry (%) GENERAL: Awake, alert, and fully oriented, in no acute distress. HEENT: NC/AT, negative Keene-Hallpike, EOMI, no nystagmus, MAURICIO, sclera anicteric , MMM NECK: No JVD LUNGS: CTA bilaterally. No wheezes, and no crackles. No accessory muscle use. HEART: Bradycardia with regular rhythm, normal S1 and S2 without murmur ABDOMEN: Soft, normoactive bowel sounds, NT/ND, no guarding, no rebound, no masses. No hepatomegaly EXTREMITIES: 2+ DP pulses, warm, No calf tenderness. No peripheral edema. Neuro: Nonfocal exam. CN II-XII intact. Strength 5/5 throughout. Sensation intact throughout PSYCHIATRIC: Cooperative. Good eye contact. Appropriate mood and affect. SKIN: Warm, dry, no rashes or lesions noted Laboratory Results 11/16/18 11/16/18 11/16/18 11:22 11:22 11:22 WBC 6.2 RBC 4.74 Hgb 15.6 Hct 44.9 MCV 94.7 MCH 33.0 MCHC 34.8 RDW 13.5 Plt Count 149 MPV 8.8 Absolute Neuts (auto) 1.8 Neutrophils % 28.6 L Lymphocytes % 50.5 H Monocytes % 11.1 H Eosinophils % 8.9 H Basophils % 0.9 Nucleated RBC % 0 PT with INR INR Sodium 138 Potassium 3.9 Chloride 102 Carbon Dioxide 31 Anion Gap 5 L BUN 17.6 Creatinine 1.3 Est GFR (CKD-EPI)AfAm 66.36 Est GFR (CKD-EPI)NonAf 57.26 Random Glucose 90 Calcium 9.2 Magnesium 2.2 Total Bilirubin 0.5 AST 53 H ALT 86 H Alkaline Phosphatase 84 Creatine Kinase 96 Troponin I < 0.02 B-Natriuretic Peptide 85.0 Total Protein 8.1 Albumin 3.9 11/16/18 11:22 WBC RBC Hgb Hct MCV MCH MCHC RDW Plt Count MPV Absolute Neuts (auto) Neutrophils % Lymphocytes % Monocytes % Eosinophils % Basophils % Nucleated RBC % PT with INR 12.20 INR 1.03 Sodium Potassium Chloride Carbon Dioxide Anion Gap BUN Creatinine Est GFR (CKD-EPI)AfAm Est GFR (CKD-EPI)NonAf Random Glucose Calcium Magnesium Total Bilirubin AST ALT Alkaline Phosphatase Creatine Kinase Troponin I B-Natriuretic Peptide Total Protein Albumin ASSESSMENT/PLAN: Symptomatic Bradycardia 2/2 to beta blockade HTN --Cardiology consulted from ED; will see in PM --Hold Atenolol --Coninue Lisinopril 10mg qdaily --May have to increase vs. add coverage if uncontrolled --Added PRN Meclizine due to vertigo sensation --Cardiac monitoring --Reviewed echocardiogram from 11/09 --ECG reviewed: Sinus bradycardia with 1st degree AV block FEN: Fluids: none Electrolyte abnormalties: none Diet: Regular diet PPX: DVT - SCDs only; low risk GI - Not indicated Dispo: Tele observation Case discussed with Dr. Bryan Fernandes, DO - IM PGY-3 Visit type - Emergency Visit Emergency Visit: Yes ED Registration Date: 11/16/18 Care time: The patient presented to the Emergency Department on the above date and was hospitalized for further evaluation of their emergent condition. - New Patient This patient is new to me today: Yes Date on this admission: 11/16/18 - Critical Care Critical Care patient: No
[2018-11-16] MEDS ORDERED: ACETAMINOPHEN 325 MG TABLET (FP) PO ONE (20:41)
--- NOTE | 2018-11-17 06:50 | PN ---
Progress Note, Physician Chief Complaint: comfortable. Denies dizziness, CP, SOB TELE: SB, an episode of Wenkebach ; rare V couplets - Current Medication List Current Medications: Active Medications Lisinopril (Prinivil) 10 mg PO DAILY JEROD Meclizine HCl (Antivert -) 12.5 mg PO Q6H PRN PRN Reason: VERTIGO Last Admin: 11/16/18 21:17 Dose: 12.5 mg - Objective Vital Signs: Vital Signs Temperature 97.8 F 11/17/18 05:00 Pulse Rate 48 L 11/17/18 05:00 Respiratory Rate 18 11/17/18 05:00 Blood Pressure 141/80 11/17/18 05:00 O2 Sat by Pulse Oximetry (%) 100 11/16/18 21:00 Constitutional: Yes: No Distress, Calm Eyes: Yes: Conjunctiva Clear Cardiovascular: Yes: Regular Rate and Rhythm Respiratory: Yes: CTA Bilaterally Gastrointestinal: Yes: Soft (NT) Edema: No Neurological: Yes: Alert, Oriented Labs: CBC, BMP 11/16/18 11:22 INR, PTT INR 1.03 (0.83-1.09) 11/16/18 11:22 Laboratory Tests 11/16/18 11/17/18 11:22 05:35 WBC 6.2 Hgb 15.6 Plt Count 149 Sodium 138 Potassium 3.6 Creatinine 1.3 Calcium 8.8 - ....Imaging EKG: Image Reviewed Assessment/Plan Assessment/Plan echo 10/2018 mild conc LVH, nl LV function, RV nl, impaired LV relaxation, mild MR, mild TR EKG: sinus radha, first degree AV block, no ischemic changes CXR: no acute process tele: sinus radha bradycardia, dizziness: - has been stable and noted at least since prior admission - echo unremarkable - less likely contributing to dizziness - monitor on tele - sinus radha - holding atenolol HTN - holding atenolol as above - cont lisinopril - monitor BP, thus far has not required up titration.
[2018-11-17 07:14] LABS: BLOOD UREA NITROGEN 21.2 mg/dL (7-18); CALCIUM 8.8 mg/dL (8.5-10.1); CREATININE 1.3 mg/dL (0.55-1.3); POTASSIUM 3.6 mmol/L (3.5-5.1)
[2018-11-17] MEDS: LISINOPRIL 10 MG TABLET (FP) PO SCH (09:02)
--- NOTE | 2018-11-17 09:48 | PN ---
Physical Exam: SUBJECTIVE: Patient seen and examined. He feels better today. OBJECTIVE: Vital Signs Period Temp Pulse Resp BP Sys/Jennings Pulse Ox Last 24 Hr 97.8 F-98.4 F 48-55 16-20 139-161/76-82 98-100 GENERAL: The patient is awake, alert, and fully oriented, in no acute distress. LUNGS: Breath sounds equal, clear to auscultation bilaterally, no wheezes, no crackles, no accessory muscle use. HEART: Regular rhythm, bradycardic, S1, S2 without murmur, rub or gallop. ABDOMEN: Soft, nontender, nondistended, normoactive bowel sounds, no guarding, no rebound, no hepatosplenomegaly, no masses. EXTREMITIES: 2+ pulses, warm, well-perfused, no edema. Laboratory Results - last 24 hr 11/16/18 11/16/18 11/16/18 11:22 11:22 11:22 WBC 6.2 RBC 4.74 Hgb 15.6 Hct 44.9 MCV 94.7 MCH 33.0 MCHC 34.8 RDW 13.5 Plt Count 149 MPV 8.8 Absolute Neuts (auto) 1.8 Neutrophils % 28.6 L Lymphocytes % 50.5 H Monocytes % 11.1 H Eosinophils % 8.9 H Basophils % 0.9 Nucleated RBC % 0 PT with INR INR Sodium 138 Potassium 3.9 Chloride 102 Carbon Dioxide 31 Anion Gap 5 L BUN 17.6 Creatinine 1.3 Est GFR (CKD-EPI)AfAm 66.36 Est GFR (CKD-EPI)NonAf 57.26 Random Glucose 90 Calcium 9.2 Magnesium 2.2 Total Bilirubin 0.5 AST 53 H ALT 86 H Alkaline Phosphatase 84 Creatine Kinase 96 Troponin I < 0.02 B-Natriuretic Peptide 85.0 Total Protein 8.1 Albumin 3.9 11/16/18 11/17/18 11:22 05:35 WBC RBC Hgb Hct MCV MCH MCHC RDW Plt Count MPV Absolute Neuts (auto) Neutrophils % Lymphocytes % Monocytes % Eosinophils % Basophils % Nucleated RBC % PT with INR 12.20 INR 1.03 Sodium 138 Potassium 3.6 Chloride 101 Carbon Dioxide 30 Anion Gap 7 L BUN 21.2 H Creatinine 1.3 Est GFR (CKD-EPI)AfAm 65.90 Est GFR (CKD-EPI)NonAf 56.86 Random Glucose 96 Calcium 8.8 Magnesium Total Bilirubin AST ALT Alkaline Phosphatase Creatine Kinase Troponin I B-Natriuretic Peptide Total Protein Albumin Active Medications Generic Name Dose Route Start Last Admin Trade Name Freq PRN Reason Stop Dose Admin Lisinopril 10 mg 11/17/18 10:00 11/17/18 09:02 Prinivil PO 10 mg DAILY JEROD Administration Meclizine HCl 12.5 mg 11/16/18 17:02 11/16/18 21:17 Antivert - PO 12.5 mg Q6H PRN Administration VERTIGO ASSESSMENT/PLAN: This is a 67 year old man with a history of HTN who presented to the ED with dizziness and weakness. 1. Symptomatic bradycardia with 1st degree AVB - Telemetry so far reveals sinus radha, Wenckebach x 1, rare ventricular couplets - Continue to monitor on telemetry - Ambulation - Continue to hold atenolol - Echocardiogram 11/09 showed mild concentric LVH, EF 55-60%, impaired LV relaxation, normal RV, mild MR, mild TR 2. HTN - Continue lisinopril - Atenolol held secondary to bradycardia/1st degree AVB Visit type - Emergency Visit Emergency Visit: Yes ED Registration Date: 11/16/18 Care time: The patient presented to the Emergency Department on the above date and was hospitalized for further evaluation of their emergent condition. - New Patient This patient is new to me today: No - Critical Care Critical Care patient: No - Discharge Referral Referred to [facility] No
--- NOTE | 2018-11-17 10:01 | EKG ---
Test Reason : Blood Pressure : / mmHG Vent. Rate : 048 BPM Atrial Rate : 048 BPM P-R Int : 276 ms QRS Dur : 080 ms QT Int : 470 ms P-R-T Axes : 035 -20 021 degrees QTc Int : 419 ms POOR DATA QUALITY, INTERPRETATION MAY BE ADVERSELY AFFECTED SINUS BRADYCARDIA WITH 1ST DEGREE A-V BLOCK CANNOT RULE OUT ANTEROSEPTAL INFARCT , AGE UNDETERMINED ABNORMAL ECG Confirmed by AIXA PRAKASH MD ([id number]) on 11/17/2018 10:01:20 AM Referred By: Confirmed By:AIXA PRAKASH MD
[2018-11-17] MEDS ORDERED: ACETAMINOPHEN 325 MG TABLET (FP) PO PRN (15:56)
[2018-11-18] MEDS: LISINOPRIL 10 MG TABLET (FP) PO SCH (09:14)
--- NOTE | 2018-11-18 09:17 | PN ---
Progress Note, Physician Chief Complaint: feeling dizzy and complained of headache yesterday Denies CP or SOB - Current Medication List Current Medications: Active Medications Acetaminophen (Tylenol -) 650 mg PO Q4H PRN PRN Reason: HEADACHE Lisinopril (Prinivil) 10 mg PO DAILY JEROD Last Admin: 11/18/18 09:14 Dose: 10 mg Meclizine HCl (Antivert -) 12.5 mg PO Q6H PRN PRN Reason: VERTIGO Last Admin: 11/16/18 21:17 Dose: 12.5 mg - Objective Vital Signs: Vital Signs Temperature 97.8 F 11/18/18 06:00 Pulse Rate 51 L 11/18/18 06:00 Respiratory Rate 18 11/18/18 08:06 Blood Pressure 140/81 11/18/18 06:00 O2 Sat by Pulse Oximetry (%) 100 11/18/18 08:06 Constitutional: Yes: No Distress Cardiovascular: Yes: Regular Rate and Rhythm Respiratory: Yes: CTA Bilaterally (no wheezing or rales.) Gastrointestinal: Yes: Soft (NT) Edema: No Neurological: Yes: Alert, Oriented Labs: CBC, BMP 11/16/18 11:22 11/17/18 05:35 INR, PTT INR 1.03 (0.83-1.09) 11/16/18 11:22 - ....Imaging EKG: Image Reviewed (NSR, sinus radha) Assessment/Plan Assessment/Plan echo 10/2018 mild conc LVH, nl LV function, RV nl, impaired LV relaxation, mild MR, mild TR EKG: sinus radha, first degree AV block, no ischemic changes CXR: no acute process tele: sinus radha bradycardia, dizziness: - has been stable and noted at least since prior admission - echo unremarkable - less likely contributing to dizziness - monitor on tele - sinus radah - holding atenolol HTN - holding atenolol as above - cont lisinopril - monitor BP, thus far has not required up titration. Headache: -Check head CT
[2018-11-18 11:40] VITALS: BP 138/69; PULSE 52; TEMP 97.6
--- NOTE | 2018-11-18 14:23 | DS ---
Physical Exam: SUBJECTIVE: Patient seen and examined OBJECTIVE: Vital Signs Period Temp Pulse Resp BP Sys/Jennings Pulse Ox Last 24 Hr 97.6 F-98.3 F 51-58 18-18 122-142/69-87 100-100 PHYSICAL EXAM GENERAL: The patient is awake, alert, and fully oriented, in no acute distress. LUNGS: Breath sounds equal, clear to auscultation bilaterally, no wheezes, no crackles, no accessory muscle use. HEART: Regular rate and rhythm, S1, S2 without murmur, rub or gallop. ABDOMEN: Soft, nontender, nondistended, normoactive bowel sounds, no guarding, no rebound, no hepatosplenomegaly, no masses. EXTREMITIES: 2+ pulses, warm, well-perfused, no edema. SKIN: Warm, dry, normal turgor, no rashes or lesions noted. LABS HOSPITAL COURSE: Date of Admission:11/16/18 Date of Discharge: 11/18/18 Minutes to complete discharge: 30 Discharge Summary Problems reviewed: Yes Reason For Visit: LIGHTHEADNESS,BRADYCARDIA,CHEST PAIN Current Active Problems Headache (Acute) 1st degree AV block (Chronic) Sinus bradycardia (Chronic) Hypertension (Chronic) Transaminitis (Chronic) Diastolic dysfunction (Chronic) Dizziness (Acute) Condition: Stable - Instructions Diet, Activity, Other Instructions: You were evaluated at [facility] for dizziness and weakness. During your workup your heart rate was slow because of one of the medications ( Atenolol) you were taking. Atenolol was stopped and your dizziness improved. You were seen by a sales representative adding machines, Dr. Prater. MEDICATIONS: Please stop taking Atenolol 100 mg Please stop taking Lasix (Furosemide) 40 mg Please stop taking Norvasc (Amlodipine) 10 mg Please continue to take Lisinopril 10 mg daily FOLLOW-UP: Please schedule an appointment with Dr. Prater this week You should also schedule an appointment with your primary care provider this week. If you do not have one, you may follow-up at the [facility] Referrals: Oliver Blevins MD [Staff Physician] - 1 Week Marcello Prater MD [Staff Physician] - 1 Week Disposition: HOME - Home Medications Comprehensive Discharge Medication List: Ambulatory Orders Lisinopril 10 mg PO DAILY 11/09/18 - Discharge Referral Referred to [facility] No
== END 2018-11-18 15:30 | disposition home or self-care (01) ==
LOC: JER 10:54 → JERBED 13:07 → J4W 15:10
PROVIDERS: ADMIT Internal Medicine; ATTEND Internal Medicine
DX: R00.1 Bradycardia, unspecified (principal); I44.0 Atrioventricular block, first degree; I50.30 Unspecified diastolic (congestive) heart failure; I11.0 Hypertensive heart disease with heart failure; R42 Dizziness and giddiness; R51 Headache; R74.0 Nonspecific elevation of levels of transaminase and lactic acid dehydrogenase [LDH]
CPT/HCPCS: 36415; 70450-TC; 71046-TC-FY; 80048; 80053; 82550; 83735; 83880; 84484; 85025; 85610; 93005; 93010; 99284-25; G0378

== ENCOUNTER 2018-11-20 02:59 | Emergency (ER) | payer OTHER ==
[2018-11-20 04:31] VITALS: BMI 27.6
--- NOTE | 2018-11-20 05:06 | PDOC ---
History of Present Illness - General Chief Complaint: Chest Pain Stated Complaint: SOB/CHEST PAIN Time Seen by Provider: 11/20/18 04:56 Past History - Past Medical History Allergies/Adverse Reactions: Allergies Allergy/AdvReac Type Severity Reaction Status Date / Time No Known Allergies Allergy Verified 11/20/18 04:32 Home Medications: Ambulatory Orders Lisinopril 10 mg PO DAILY 11/09/18 Anemia: No Asthma: No Cancer: No Cardiac Disorders: No CVA: No COPD: No CHF: No Dementia: No Diabetes: No GI Disorders: Yes Disorders: No HTN: Yes Hypercholesterolemia: No Liver Disease: No Seizures: No Thyroid Disease: No - Surgical History Abdominal Surgery: No Appendectomy: No Cardiac Surgery: No Cholecystectomy: No Lung Surgery: No Neurologic Surgery: No Orthopedic Surgery: No - Immunization History Immunization Up to Date: Yes - Psycho Social/Smoking Cessation Hx Smoking History: Never smoked Have you smoked in the past 12 months: No Hx Alcohol Use: No Drug/Substance Use Hx: No Substance Use Type: None Hx Substance Use Treatment: No *Physical Exam - Vital Signs Last Vital Signs Temp Pulse Resp BP Pulse Ox 97.9 F 71 18 154/90 98 11/20/18 02:59 11/20/18 02:59 11/20/18 02:59 11/20/18 02:59 11/20/18 02:59 ED Treatment Course - LABORATORY CBC & Chemistry Diagram: 11/20/18 06:30 11/20/18 08:13 Medical Decision Making - Medical Decision Making 11/20/18 05:15 68yo M hx HTN and recent d/c here on 11/18/18 with medication change of atenolol to lisinopril due to symptomatic bradycardia presents with same chest pain as when presented on 11/16/18, L-sided, non-radiating, pressure type, constant, acute onset 0100, woke from sleep, nothing makes better or worse, resolved on own (not present now), nonpleuritic, associated with SOB. Denies fever, chills, diaphoresis, fatigue, headache, dizziness, numbness/tingling, weakness, vision changes, cough, palpitations, leg swelling, abdominal pain, blood in stool, diarrhea, constipation, nausea, vomiting, dysuria, hematuria, confusion, calf tenderness, hx DVT/PE, recent travel, hormone use, smoking, Fhx early CAD malignancy, recent surgery, recent trauma. ROS: Constitutional: Negative for chills, fever, fatigue, diaphoresis. HENT: Negative for sore throat, rhinorrhea, congestion. Eyes: Negative for visual disturbance. Respiratory: Positive for shortness of breath. Negative for cough, and wheezing. Cardiovascular: Positive for chest pain. Negative for palpitations, and leg swelling. Gastrointestinal: Negative for abdominal pain, blood in stool, constipation, diarrhea, nausea, and vomiting. Genitourinary: Negative for dysuria, flank pain, and hematuria. Musculoskeletal: Negative for myalgias, back pain, and neck pain. Skin: Negative for rash. Neurological: Negative for light-headedness, dizziness, vertigo, syncope, weakness, numbness and headaches. Psychiatric/Behavioral: Negative for behavioral problems and confusion. PE: Gen: Alert, NAD, comfortable-appearing. HEENT: PERRL, EOMI, MMM, NCAT. No conjunctival pallor. Sclera are non-icteric. CV: Regular rate and rhythm. No murmurs, rubs, or gallops. PULM: No resp distress. CTAB, no wheezes, rales, or rhonchi. ABD: soft, NT/ND, no rebound tenderness or guarding, no CVA tenderness. BACK: No TTP of c/t/l-spine. No step-offs or deformities. MSK: No bony deformities. 2+ pulses in all extremities. NEURO: AAOx3. PERRL. No gross CN deficits. Strength and sensation grossly intact throughout. EXTREMITIES: No cyanosis. No clubbing. No edema. No calf tenderness. PSYCH: Normal mood and thought pattern. SKIN: Warm and dry. Normal capillary refill. No rashes. No jaundice. MDM: 68yo M hx HTN and recent d/c here on 11/18/18 with medication change of atenolol to lisinopril due to symptomatic bradycardia presents with same chest pain as when presented on 11/16/18, L-sided, non-radiating, pressure type, constant, acute onset 0100, woke from sleep, nothing makes better or worse, resolved on own (not present now), nonpleuritic, associated with SOB. Low concern for ACS/ HI or arrhythmia due to lack of arrhythmia or signs of ischemia on EKG, lack of association with nausea/numbness/diaphoresis/SOB, HEART score 3 (age, HTN) - r/ o ACS/HI with troponin x2 and consult cardio. Low concern for pulmonary etiology due to non pleuritic nature of CP, lack of cough or SOB, and lungs CTAB , but r/o PNA, COPD exacerbation, and PTX with CXR and labs. Low concern for PE due to lack of tachycardia or RFs (other than age), but no previous d-dimer, Wells 3 for equally likely dx, Perc not negative - r/o low risk pt with D-dimer ; if positive, CTPE. Lack of tearing nature of chest pain, lack of back pain, lack of hemodynamic instability, and pulses equal bilaterally, dissection of very low concern - no further testing indicated. Also consider MSK, infectious etiologies, anemia, metabolic derangements - r/o with CBC, CMP. -EKG -CBC, CMP, Cardiac profile, D-dimer -CXR -Consult associate genetics professor Dr. Sewell? (Prescription states Kemar Rosario but last note says Melodie, pt does not know associate genetics professor name) -Dispo: pending w/u 11/20/18 07:15 Labs reviewed. D-dimer 950 - CTPE ordered. CXR reviewed. No acute pathology. EKG reviewed: sinus rhythm with 1st degree AV block, 66bpm, normal axis, CINTHIA 298ms, no TWIs, no ST elevations or depressions Signed out to Dr Pinto. Discharge - Discharge Information Problems reviewed: Yes Clinical Impression/Diagnosis: 1st degree AV block Chest pain Qualifiers: Chest pain type: unspecified Qualified Code(s): R07.9 - Chest pain, unspecified Condition: Stable Disposition: HOME - Follow up/Referral Referrals: Ryan Lozano MD [Staff Physician] - - Patient Discharge Instructions Patient Printed Discharge Instructions: DI for Atypical Chest Pain Additional Instructions: Today you were evaluated for chest pain and tachycardia. We performed an ECG that does not show signs of a heart attack. Your chest x-ray does not show any concerning heart problems. We checked your blood labs and did not see evidence of electrolyte problems, heart attack, or anemia. We were worried about a clot in your lungs called a pulmonary embolism that could be causing your symptoms, but a CT scan of your chest does not show this. You chest pain is likely a muscle problem or related to your medications, as you are not having rapid heart rate at this time. Please follow-up with your primary doctor in the next 3 days for further care. Please see your associate genetics professor in the next week for further evaluation of your chest pain. If you do not have one, we have a referral to Dr. Lozano. If you experience any worsening chest pain, difficulty breathing, feel a fast heart rate, abdominal pain, headache, or any other new or concerning symptoms, please return to the closest emergency room. Print Language: ENGLISH - Post Discharge Activity
--- NOTE | 2018-11-20 05:27 | PDOC ---
Attending Attestation - Resident Resident Name: Kalani Franklin - ED Attending Attestation I have performed the following: I have examined & evaluated the patient, The case was reviewed & discussed with the resident, I agree w/resident's findings & plan - HPI HPI: 11/20/18 19:44 see resident hpi - Physicial Exam PE: 11/20/18 19:44 agree with resident exam - Medical Decision Making 11/20/18 19:44 68 yo male with left side cp and sob labs, CTA chest pending signed out to day shift
[2018-11-20 06:35] LABS: BASO % 0.8 % (0-2.0); EOS % 9.2 % (0-4.5); HEMATOCRIT 44.1 % (35.4-49); HEMOGLOBIN 15.6 GM/dL (11.7-16.9); LYMPH % 47.3 % (8-40); MCH 33.1 pg (25.7-33.7); MCHC 35.2 g/dl (32.0-35.9); MEAN CELL VOLUME 93.9 fl (80-96); MEAN PLT VOLUME 8.7 fl (7.5-11.1); NEUT % 34.7 % (42.8-82.8); PLATELET COUNT 147 K/MM3 (134-434); RDW 13.8 % (11.9-15.9); WHITE BLOOD COUNT 7.4 K/mm3 (4.0-10.0)
--- NOTE | 2018-11-20 07:26 | PDOC ---
*Physical Exam - Vital Signs Last Vital Signs Temp Pulse Resp BP Pulse Ox 97.9 F 71 18 154/90 98 11/20/18 02:59 11/20/18 02:59 11/20/18 02:59 11/20/18 02:59 11/20/18 02:59 - Physical Exam General Appearance: Yes: Nourished, Appropriately Dressed, Other (appears well and in no acute distress). No: Apparent Distress HEENT: positive: EOMI, Normal Voice, Symmetrical, Hearing Grossly Normal. negative: Scleral Icterus (R), Scleral Icterus (L), Muffled/Hoarse voice Neck: positive: Trachea midline, Supple. negative: Lymphadenopathy (R), Lymphadenopathy (L) Respiratory/Chest: positive: Lungs Clear, Normal Breath Sounds. negative: Respiratory Distress, Accessory Muscle Use, Crackles, Rales, Rhonchi Cardiovascular: positive: Regular Rhythm, Regular Rate, Other (radial pulses 2+ bilaterally, HR 80). negative: Murmur Gastrointestinal/Abdominal: positive: Normal Bowel Sounds, Flat, Soft. negative : Tender, Organomegaly, Guarding, Rebound Extremity: positive: Normal Inspection, Normal Range of Motion. negative: Tender Integumentary: positive: Normal Color, Dry, Warm Neurologic: positive: Fully Oriented, Alert, Normal Mood/Affect, Normal Response , Other (observed standing and walking without unsteady gait) ED Treatment Course - LABORATORY CBC & Chemistry Diagram: 11/20/18 06:30 11/20/18 08:13 - ADDITIONAL ORDERS Additional order review: Laboratory Results 11/20/18 06:30 D-Dimer 980 H 11/20/18 06:30 RBC 4.70 MCV 93.9 MCHC 35.2 RDW 13.8 MPV 8.7 Neutrophils % 34.7 L D Lymphocytes % 47.3 H Monocytes % 8.0 Eosinophils % 9.2 H Basophils % 0.8 Medical Decision Making - Medical Decision Making 11/20/18 07:21 Signed out to me by Dr. Franklin. Atypical chest pain recently admitted for same with bradycardia, discharged with off BB and on Losartan. Now here with L-sided, non-radiating chest pain with SOB. ACS eval + d-dimer. D-dimer 950, getting CTA for r/o PE. Plan for 2-troponin evaluation if PE workup negative. 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 Discussed need for repeat labs and results of blood labs and CXR, discussed CTA for r/o PE, patient agrees with this plan. 11/20/18 08:56 CTA results show no PE. Patient has HEART score of 3, but has no other cardiac history or family history , no history of DM or HLD, no ischemic changes notable on ECG, all labs WNL, troponins taken at 4 hours negative. Have ruled out IN, PE, dissection, no concerning features noted on cardiopulmonary examination concerning for pulmonary pathology. Eligible to be discharged home with return precautions and cardiology follow-up. Discharge - Discharge Information Problems reviewed: Yes Clinical Impression/Diagnosis: 1st degree AV block Chest pain Qualifiers: Chest pain type: unspecified Qualified Code(s): R07.9 - Chest pain, unspecified Condition: Stable Disposition: HOME - Follow up/Referral Referrals: Ryan Lozano MD [Staff Physician] - - Patient Discharge Instructions Patient Printed Discharge Instructions: DI for Atypical Chest Pain Additional Instructions: Today you were evaluated for chest pain and tachycardia. We performed an ECG that does not show signs of a heart attack. Your chest x-ray does not show any concerning heart problems. We checked your blood labs and did not see evidence of electrolyte problems, heart attack, or anemia. We were worried about a clot in your lungs called a pulmonary embolism that could be causing your symptoms, but a CT scan of your chest does not show this. You chest pain is likely a muscle problem or related to your medications, as you are not having rapid heart rate at this time. Please follow-up with your primary doctor in the next 3 days for further care. 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 If you do not have one, we have a referral to Dr. Lozano. If you experience any worsening chest pain, difficulty breathing, feel a fast heart rate, abdominal pain, headache, or any other new or concerning symptoms, please return to the closest emergency room. Print Language: [place] - Post Discharge Activity
[2018-11-20 09:22] LABS: ALBUMIN 3.8 g/dl (3.4-5.0); BILIRUBIN,TOTAL 0.6 mg/dL (0.2-1); BLOOD UREA NITROGEN 16.8 mg/dL (7-18); CALCIUM 9.3 mg/dL (8.5-10.1); CREATININE 1.2 mg/dL (0.55-1.3); TOT PROT 7.9 g/dl (6.4-8.2)
[2018-11-20 11:21] VITALS: BP 134/78; PULSE 68; TEMP 98.7
--- NOTE | 2018-11-20 12:05 | EKG ---
Test Reason : Blood Pressure : / mmHG Vent. Rate : 066 BPM Atrial Rate : 066 BPM P-R Int : 298 ms QRS Dur : 084 ms QT Int : 406 ms P-R-T Axes : 071 -08 054 degrees QTc Int : 425 ms SINUS RHYTHM WITH 1ST DEGREE A-V BLOCK OTHERWISE NORMAL ECG WHEN COMPARED WITH ECG OF 16-NOV-2018 11:02, CRITERIA FOR ANTEROSEPTAL INFARCT ARE NO LONGER PRESENT Confirmed by Abran Gunter ([id number]) on 11/20/2018 12:04:52 PM Referred By: Confirmed By:Abran Gunter
== END 2018-11-20 11:17 | disposition home or self-care (01) ==
LOC: JER 02:59
DX: I44.0 Atrioventricular block, first degree (principal); R07.9 Chest pain, unspecified; I10 Essential (primary) hypertension
CPT/HCPCS: 36415; 71046-TC-FY; 71275-TC; 80053; 84484; 85025; 85379; 93005; 93010; 99282-25; Q9967

== ENCOUNTER 2022-05-30 23:59 | Observation (INO) | payer OTHER ==
[2022-05-31 00:27] VITALS: RESP 18; BMI 27.4
[2022-05-31 01:53] LABS: BASO % 0.4 % (0-2.0); EOS % 4.6 % (0-4.5); HEMATOCRIT 42.5 % (35.4-49); HEMOGLOBIN 15.1 GM/dL (11.7-16.9); LYMPH % 37.4 % (8-40); MCH 32.7 pg (25.7-33.7); MCHC 35.5 g/dl (32.0-35.9); MEAN CELL VOLUME 92.1 fl (80-96); MONO % 8.5 % (3.8-10.2); NEUT % 49.1 % (42.8-82.8); PLATELET COUNT 122 10^3/uL (134-434); RBC 4.61 M/mm3 (4.00-5.60); RDW 13.9 % (11.9-15.9)
[2022-05-31 02:22] LABS: ALBUMIN 4.4 g/dl (3.4-5.0); BLOOD UREA NITROGEN 20.6 mg/dL (7-18); CALCIUM 9.4 mg/dL (8.5-10.1)
[2022-05-31 02:26] LABS: CREATININE 1.4 mg/dL (0.55-1.3)
[2022-05-31 02:27] LABS: BILIRUBIN,TOTAL 0.3 mg/dL (0.2-1); TOT PROT 8.4 g/dl (6.4-8.2)
[2022-05-31 02:31] LABS: N-TERMINAL BNP 36.7 pg/ml (5-125)
[2022-05-31 02:53] LABS: URINE APPEARANCE CLEAR; URINE BILIRUBIN NEGATIVE (NEGATIVE); URINE COLOR YELLOW; URINE GLUCOSE (UA) NEGATIVE (NEGATIVE); URINE KETONE NEGATIVE (NEGATIVE); URINE LEUK ESTERASE NEGATIVE (NEGATIVE); URINE NITRITE NEGATIVE (NEGATIVE); URINE PROTEIN TRACE (NEGATIVE); URINE UROBILINOGEN 0.2 mg/dL (0.2-1.0)
[2022-05-31] MEDS ORDERED: HYDROCHLOROTHIAZIDE 25 MG TABLET (FP) PO ONE (03:07)
[2022-05-31] MEDS ORDERED: amLODIPine BESYLATE 5 MG TABLET (FP) PO ONE ×2 (03:07→11:00)
[2022-05-31] MEDS ORDERED: amLODIPine BESYLATE 5 MG TABLET (FP) ONE (03:49)
[2022-05-31] MEDS ORDERED: HYDROCHLOROTHIAZIDE 25 MG TABLET (FP) ONE (03:49)
[2022-05-31] MEDS ORDERED: ASPIRIN 81 MG CHEWABLE TABLETS PO ONE (04:11)
[2022-05-31] MEDS ORDERED: ASPIRIN 81 MG CHEWABLE TABLETS ONE (04:13)
[2022-05-31] MEDS ORDERED: ACETAMINOPHEN 500 MG TABLET (FP) PO ONE (04:52)
[2022-05-31] MEDS ORDERED: ACETAMINOPHEN 325 MG TABLET (FP) ONE (05:01)
[2022-05-31] MEDS ORDERED: LOSARTAN POTASSIUM 50 MG TABLET PO SCH (06:30)
[2022-05-31] MEDS ORDERED: MECLIZINE HCL 25 MG TABLET (FP) PO ONE (06:30)
[2022-05-31 09:15] LABS: OPIATES, URI NEGATIVE (NEGATIVE)
[2022-05-31 09:16] LABS: COCAINE, UR NEGATIVE (NEGATIVE); PHENCYCLIDINE,URINE NEGATIVE (NEGATIVE)
[2022-05-31 09:17] LABS: URINE BENZODIAZEPINES NEGATIVE (NEGATIVE)
[2022-05-31 09:22] LABS: URINE AMPHETAMINES NEGATIVE (NEGATIVE)
[2022-05-31 09:25] LABS: METHADONE, UR NEGATIVE (NEGATIVE); URINE BARBITURATES NEGATIVE (NEGATIVE)
[2022-05-31] MEDS ORDERED: ENOXAPARIN NA (PORCINE) 40 MG/0.4 ML DISP.SYRIN SQ SCH (10:00)
[2022-05-31] MEDS ORDERED: ACETAMINOPHEN 325 MG TABLET (FP) PO PRN (10:10)
[2022-05-31] MEDS: amLODIPine BESYLATE 10 MG TABLET (FP) PO SCH ×2 (10:51→11:09)
[2022-05-31 12:22] LABS: HEMOGLOBIN 15.1 GM/dL (11.7-16.9); MCH 32.2 pg (25.7-33.7); MCHC 35.1 g/dl (32.0-35.9); MEAN CELL VOLUME 91.7 fl (80-96); MEAN PLT VOLUME 8.5 fl (7.5-11.1); PLATELET COUNT 130 10^3/uL (134-434); RBC 4.69 M/mm3 (4.00-5.60); RDW 13.6 % (11.9-15.9); WHITE BLOOD COUNT 5.5 K/mm3 (4.0-10.0)
[2022-05-31] MEDS ORDERED: ACETAMINOPHEN/CAFFEINE/BUTALBITAL 1 TAB PO ONE (12:44)
[2022-05-31 12:49] LABS: CALCIUM 9.5 mg/dL (8.5-10.1)
[2022-05-31 12:50] LABS: BLOOD UREA NITROGEN 16.8 mg/dL (7-18)
[2022-05-31 12:53] LABS: CREATININE 1.1 mg/dL (0.55-1.3); PHOSPHOROUS 3.1 mg/dL (2.5-4.9)
[2022-05-31 12:54] LABS: BILIRUBIN,TOTAL 0.7 mg/dL (0.2-1); TOT PROT 8.1 g/dl (6.4-8.2)
[2022-05-31 15:12] VITALS: BP 133/78; PULSE 62; TEMP 98.2
[2022-06-01] MEDS ORDERED: amLODIPine BESYLATE 10 MG TABLET (FP) PO SCH (10:00)
== END 2022-05-31 16:38 | disposition home or self-care (01) ==
LOC: JER 23:59 → JERBED 05-31 02:46 → J4W 05-31 05:32
PROVIDERS: ADMIT Internal Medicine; ATTEND Internal Medicine
PROC: 3E023GC Introduction of Other Therapeutic Substance into Muscle, Percutaneous Approach (ICD-10-PCS; principal; 2022-05-31)
DX: I16.0 Hypertensive urgency (principal); R42 Dizziness and giddiness; Z29.8 Encounter for other specified prophylactic measures
CPT/HCPCS: 0241U-QW; 36415; 71045-TC-FY; 80053; 80307; 81003; 83690; 83735; 83880; 84100; 84484; 85025; 85027; 87086; 93005; 93010; 93306-TC; 96372; 97116-GP; 97161-GP; 99285-25; G0378

== ENCOUNTER 2023-07-19 11:10 | Emergency (ER) | payer OTHER ==
[2023-07-19 11:17] VITALS: TEMP 98; BMI 28.8
[2023-07-19 12:17] LABS: BASO % 0.6 % (0-2.0); EOS % 8.3 % (0-4.5); HEMATOCRIT 41.5 % (35.4-49); HEMOGLOBIN 14.2 GM/dL (11.7-16.9); LYMPH % 36.3 % (8-40); MCH 32.2 pg (25.7-33.7); MCHC 34.1 g/dl (32.0-35.9); MEAN CELL VOLUME 94.3 fl (80-96); MEAN PLT VOLUME 8.1 fl (7.5-11.1); MONO % 8.7 % (3.8-10.2); NEUT % 46.1 % (42.8-82.8); PLATELET COUNT 153 10^3/uL (134-434); RDW 13.7 % (11.9-15.9); WHITE BLOOD COUNT 6.3 K/mm3 (4.0-10.0)
[2023-07-19 12:23] LABS: INR 0.98 (0.83-1.09); PROTHROMBIN TIME (PATIENT) 11.1 SEC (9.7-13.0)
[2023-07-19 12:25] LABS: ACTIVATED PTT 31.8 SECONDS (25.2-36.5)
[2023-07-19 12:26] LABS: PH,URINE 7.5 (5.0-8.0); URINE APPEARANCE CLEAR; URINE BILIRUBIN NEGATIVE (NEGATIVE); URINE COLOR YELLOW; URINE GLUCOSE (UA) NEGATIVE (NEGATIVE); URINE KETONE NEGATIVE (NEGATIVE); URINE LEUK ESTERASE NEGATIVE (NEGATIVE); URINE NITRITE NEGATIVE (NEGATIVE); URINE PROTEIN NEGATIVE (NEGATIVE); URINE UROBILINOGEN 0.2 mg/dL (0.2-1.0)
[2023-07-19 12:37] LABS: POTASSIUM 3.9 mmol/L (3.5-5.1)
[2023-07-19 12:39] LABS: CALCIUM 9.1 mg/dL (8.5-10.1)
[2023-07-19 12:40] LABS: ALBUMIN 4.1 g/dl (3.4-5.0); BLOOD UREA NITROGEN 12.8 mg/dL (7-18); MAGNESIUM 2.2 mg/dL (1.8-2.4)
[2023-07-19 12:43] LABS: CREATININE 1.3 mg/dL (0.55-1.3)
[2023-07-19 12:44] LABS: BILIRUBIN,TOTAL 0.4 mg/dL (0.2-1)
[2023-07-19 12:45] LABS: TOT PROT 7.6 g/dl (6.4-8.2)
[2023-07-19] MEDS: SODIUM CHLORIDE 0.9% 500 ML INFUS.BAG IV ONE (14:56)
[2023-07-19 15:03] LABS: N-TERMINAL BNP 76.3 pg/ml (5-125)
[2023-07-19 16:11] VITALS: BP 166/95; PULSE 58; RESP 18
[2023-07-19] MEDS ORDERED: ACETAMINOPHEN 1000 MG/100 ML BAG IVPB ONE (16:41)
[2023-07-19] MEDS ORDERED: ACETAMINOPHEN INJECTION 100 ML IVPB ONE (16:51)
== END 2023-07-19 17:25 | disposition home or self-care (01) ==
LOC: JER 11:10
DX: R42 Dizziness and giddiness (principal); R60.0 Localized edema; R20.0 Anesthesia of skin; R53.1 Weakness; R51.9 Headache, unspecified; G89.29 Other chronic pain; R06.02 Shortness of breath; M54.50 Low back pain, unspecified; Z20.822 Contact with and (suspected) exposure to COVID-19
CPT/HCPCS: 0241U-QW; 36415; 70450-TC; 71045-TC-FY; 80053; 81003; 82550; 83735; 83880; 84443; 84484; 85025; 85610; 85730; 86850; 86900; 86901; 87086; 93005; 93010; 93970-TC; 99285-25